=== PATIENT | male | born 1965 | race Caucasian/White ===

== ENCOUNTER 2022-05-07 14:21 | Outpatient (REF) | payer BC, SELFPAY ==
[2022-05-07 15:27] LABS: Basophils Absolute Auto 0.02 K/uL (0.00-0.30); Basophils Percent Auto 0.4 % (0.0-3.0); Eosinophils Absolute Auto 0.18 K/uL (0.00-0.50); Eosinophils Percent Auto 3.2 % (0.0-7.0); Hematocrit 52.9 % (37.0-53.0); Hemoglobin* 17.4 gm/dL (13.5-17.5); Lymphocytes Absolute Auto 2.48 K/uL (0.90-2.90); Lymphocytes Percent Auto 43.9 % (20-44); Mean Corpuscular HGB Conc 33 gm/dL (32-36); Mean Corpuscular Hemoglobin 30 pg (26-34); Mean Corpuscular Volume 92 fL (80-100); Monocytes Percent Auto 9.7 % (0.0-11.0); Neutrophils Absolute Auto 2.42 K/uL (1.7-7.0); Neutrophils Percent Auto 42.8 % (42.0-72.0); Platelet Count* 202 K/uL (140-440); RDW Coefficient of Variation % 12.6 % (11.5-15.5); Red Blood Count 5.78 m/uL (4.30-5.90); White Blood Count* 5.65 K/uL (4.50-11.00)
[2022-05-07 15:28] LABS: Albumin* 4.7 g/dL (3.3-5.0)
[2022-05-07 15:30] LABS: Bilirubin Direct* 0.2 mg/dL (0.0-0.5); Bilirubin Total* 1.1 mg/dL (0.1-1.5); Total Protein* 7.7 g/dL (6.0-8.3)
[2022-05-07 15:31] LABS: Alanine Aminotransferase* 23 U/L (4-50); Alkaline Phosphatase* 71 U/L (40-150); Aspartate Amino Transferase* 16 U/L (12-35)
[2022-05-07 15:43] LABS: Slide Review Reflex No
[2022-05-09 21:55] LABS: Hepatitis B Core Antibodies Negative (Negative)
== END 2022-05-07 14:22 | disposition home or self-care (01) ==
LOC: NPINS 14:21
PROVIDERS: PCP Internal Medicine; Visit Provider Internal Medicine
DX: K50.10 Crohn's disease of large intestine without complications (principal)
CPT/HCPCS: 80076; 85025; 86704

== ENCOUNTER 2022-09-02 08:15 | Outpatient (CLI) | payer BC, SELFPAY | END 2022-09-02 08:16 | disposition home or self-care (01) | LOC: NFLDREF 17:07 | PROVIDERS: PCP Internal Medicine; Referring Provider Internal Medicine; Visit Provider Internal Medicine | DX: Z00.00 Encounter for general adult medical examination without abnormal findings (principal); E66.9 Obesity, unspecified; Z12.5 Encounter for screening for malignant neoplasm of prostate; Z86.39 Personal history of other endocrine, nutritional and metabolic disease | CPT/HCPCS: 82306; 84153 ==

== ENCOUNTER 2022-11-27 13:43 | Outpatient (REF) | payer BC, SELFPAY ==
[2022-11-27 14:18] LABS: Basophils Absolute Auto 0.03 K/uL (0.00-0.30); Basophils Percent Auto 0.6 % (0.0-3.0); Eosinophils Absolute Auto 0.26 K/uL (0.00-0.50); Hematocrit 50.7 % (37.0-53.0); Hemoglobin* 16.9 gm/dL (13.5-17.5); Immature Granulocytes Abs Auto 0.01 K/uL (0.00-0.30); Immature Granulocytes Pct Auto 0.2 %; Lymphocytes Absolute Auto 2.05 K/uL (0.90-2.90); Mean Corpuscular HGB Conc 33 gm/dL (32-36); Mean Corpuscular Hemoglobin 31 pg (26-34); Mean Corpuscular Volume 92 fL (80-100); Monocytes Percent Auto 10.1 % (0.0-11.0); Neutrophils Absolute Auto 2.37 K/uL (1.7-7.0); Neutrophils Percent Auto 45.1 % (42.0-72.0); Platelet Count* 188 K/uL (140-440); RDW Coefficient of Variation % 13.1 % (11.5-15.5); Red Blood Count 5.51 m/uL (4.30-5.90); White Blood Count* 5.25 K/uL (4.50-11.00)
[2022-11-27 14:23] LABS: Albumin* 4.2 g/dL (3.3-5.0)
[2022-11-27 14:24] LABS: Slide Review Reflex No
[2022-11-27 14:25] LABS: Iron* 202 ug/dL (49-181)
[2022-11-27 14:26] LABS: Alkaline Phosphatase* 62 U/L (40-150); Aspartate Amino Transferase* 17 U/L (12-35); Bilirubin Direct* 0.1 mg/dL (0.0-0.5); Total Protein* 7.2 g/dL (6.0-8.3)
[2022-11-27 14:27] LABS: Alanine Aminotransferase* 26 U/L (4-50)
[2022-11-27 14:35] LABS: Percent Iron Saturation 66 % (20-50); Total Iron Binding Capacity 305 ug/dL (261-462)
[2022-11-27 15:00] LABS: Ferritin* 62.7 ng/mL (17.9-464.0)
== END 2022-11-27 13:44 | disposition home or self-care (01) ==
LOC: NPINS 13:43
PROVIDERS: Internal Medicine Gastroenterology; PCP Internal Medicine; Visit Provider Internal Medicine
DX: K50.10 Crohn's disease of large intestine without complications (principal); Z11.1 Encounter for screening for respiratory tuberculosis
CPT/HCPCS: 80076; 82728; 83540; 83550; 84443; 85025; 86480

== ENCOUNTER 2023-06-22 18:20 | Emergency (ER) | payer BC, SELFPAY ==
[2023-06-22 18:33] VITALS: BP 140/92; PULSE 97; RESP 16; TEMP 37.1; O2SAT 95; BMI 32.8
--- OUTSIDE RECORDS SUMMARY | 2023-06-22 19:26 | XMS_ITS | Encounter Summary ---
Author Name Unknown Organization [place] Address [address] [place] [address]. [place] [address] Care Team Providers Care Supervisor Personnel Clerks Name Role Phone Juan Luis Olivas MD Primary Care Provider [phone] Neto Baez Primary Care Provider + [phone] Cuco Rapp MD Unavailable [phone] Timo Muniz MD Unavailable [phone] Reason for Visit * Reason Onset Date Comments Appointment 12/14/2018 Sooner appointme nt Encounter Details Date Type Department Care Team (Late st Contact Info) Description 12/14/2018 [facility] [address] [place] [address] System, Provider Not In Appointment (Sooner appointment) Social History Tobacco Use Types Packs/Day Years Used Date Smoking Tobacco: Never Assessed Sex and Gender Information Value Date Recorded Sex Assigned at Not on file Gender Identity Not on file Sexual Orientation Not on file documented as of this encounter Miscellaneous Notes * Telephone Encounter - Frannie Brown - 12/14/2018 4:54 PM CDT [facility] Call Center Phone Message May a detailed message be left on voicemail: yes Reason for Call: Other: Pt is needing to schedule an appointment at [facility] to be seen for a kidney stone. Pt was recently seen in the ED and was told to follow up in Urology in 3 days. The soonest appointment isn't until 12/30. Please give him a call back to discuss the possiblity of a sooner appointment. Action Taken: Message routed to: [facility] Urology documented in this encounter Plan of Treatment Not on file documented as of this encounter Visit Diagnoses Not on filedocumented in this encounter Care Teams Supervisor Personnel Clerks Relationship Specialty Start Date End Date Juan Luis Olivas MD PCP - General Family Practice 12/14/18 01/10/20 Neto Baez [address] [address] PCP - General Family Practice 01/11/20 Cuco Rapp MD [address] [address] Assigned Surgical Provider 03/24/20 Timo Muniz MD [address] [place], [place] [address] Assigned Surgical Provider 07/02/20 documented as of this encounter
--- OUTSIDE RECORDS SUMMARY | 2023-06-22 19:26 | XMS_ITS | Referral Summary ---
Author Name Unknown Organization [place] Address [address] [place] [address] Care Team Providers Care Cage Clerk Name Role Phone SashaEdy membrenoolakvng Encarnacion Primary Care Provider Allergies Active Allergy Reactions Criticality Noted Date Comments Sulfa Antibiotics Anaphylaxis,Swelling High 12/15/19 19 Medications Medication Sig Dispensed Refills Start Date End Date Status omeprazole 20 MG tablet Take 20 mg by mouth daily 0 Active fluticasone (FLONASE) 50 MCG/ACT nasal spray [place] 1 spray into both nostrils daily 0 Active multivitamin w/minerals (MULTI-VITAMIN) tablet Take 1 tablet by mouth daily 0 Active vitamin C (ASCORBIC ACID) 1000 MG TABS Take 1,000 mg by mouth daily 0 Active Cholecalciferol (VITAMIN D-3) 1000 units CAPS Take 1 tablet by mouth daily 0 Active INFLIXIMAB-ABDA IV Every 8 weeks, last infusion November 30 0 Active Active Problems No known active problems Immunizations Name Administration Dates Next Due COVID-19 MONOVALENT 12+ (Pfizer) 01/26/2021,04/0 01/2021,08/18/2020 Social History Tobacco Use Types Packs/Day Years Used Date Smoking Tobacco: Never Smokeless Tobacco: Never Tobacco Cessation:Counseling Given: No Alcohol Use Standard Drinks/Week Comments Yes 0 (1 standard drink = 0.6 oz pur e alcohol) 4 drinks mopnthly or less PHQ-2 Answer Date Recorded PHQ-2 Score 0 04/25/2020 Adolescent Education Answer Date Record ed Getting School Help Needed Not on file 03/01 Sex and Gender Information Value Date Recorded Sex Assigned at Not on file Gender Identity Not on file Sexual Orientation Not on file Last Filed Vital Signs Vital Sign Reading Time Taken Comments Blood Pressure 164/112 01/11/2020 4:05 AM CDT Pulse 64 01/11/2020 2:25 AM CDT Temperature 36.4 ??C (97.6 ??F) 01/11/2020 2:25 AM CD T Respiratory Rate 18 01/11/2020 2:25 AM CDT Oxygen Saturation 98% 01/11/2020 3:15 AM CDT Inhaled Oxygen Concentration - - Weight 114.3 kg (252 lb) 01/08/2019 10:31 AM CDT Height 182.9 cm (6') 01/08/2019 10:31 AM CDT Body Mass Index 34.18 01/08/2019 10:31 AM CDT Plan of Treatment Not on file Medical Devices Implanted Type Area Printing Equipment Mechanic Device Identifier Shelf Expiration Date Model / Serial / Lot Stent Ureteral Polaris Ultra [id number] Implanted:Qty: 1 on 12/18/2018 by Cuco Rapp MD at [facility] Stent Right: Ureter [employer] 07/19/2021 [id number] / / [id number] Care Teams Cage Clerk Relationship Specialty Start Date End Date Neto Baez [address] [address] PCP - General Family Practice 01/11/20
--- OUTSIDE RECORDS SUMMARY | 2023-06-22 19:26 | XMS_ITS | Encounter Summary ---
Author Name Unknown Organization [place] Address [address] [place] [address] Care Team Providers Care Leader Assembler Name Role Phone Neto Baez Primary Care Provider + [phone] Timo Muniz MD Unavailable [phone] Encounter Details Date Type Department Care Team (Late st Contact Info) Description 09/24/2020 Documentation Only INTERFACED REPORT Unknown, Provider Social History Tobacco Use Types Packs/Day Years Used Date Smoking Tobacco: Never Smokeless Tobacco: Never Alcohol Use Standard Drinks/Week Comments Yes 0 (1 standard drink = 0.6 oz pur e alcohol) 4 drinks mopnthly or less PHQ-2 Answer Date Recorded PHQ-2 Score 0 04/25/2020 Sex and Gender Information Value Date Recorded Sex Assigned at Not on file Gender Identity Not on file Sexual Orientation Not on file documented as of this encounter Plan of Treatment Not on file documented as of this encounter Visit Diagnoses Not on filedocumented in this encounter Additional Health Concerns Assessment Noted Time PHQ-9 Depression Total Score: 14 019 10:03 AM CDT documented as of this encounter Care Teams Leader Assembler Relationship Specialty Start Date End Date Neto Baez [address] [address] PCP - General Family Practice 01/11/20 Timo Muniz MD [address] [place] [address] Assigned Surgical Provider 07/02/20 documented as of this encounter
--- OUTSIDE RECORDS SUMMARY | 2023-06-22 19:26 | XMS_ITS | Encounter Summary ---
Author Name Unknown Organization [place] Address [address] [place] [address]. [place] [address] Care Team Providers Care Closet Builder Name Role Phone Neto Baez Primary Care Provider + [phone] Timo Muniz MD Unavailable [phone] Encounter Details Date Type Department Care Team (Late st Contact Info) Description 01/25/2021 [facility] Adv[facility] [address] [place] [address] Cuco Rapp MD [address] [address] Social History Tobacco Use Types Packs/Day Years [...] Noted Time PHQ-9 Depression Total Score: 14 12/29/ 019 10:03 AM CDT documented as of this encounter Care Teams Closet Builder Relationship Specialty Start Date End Date Neto Baez [address] [address] PCP - General Family Practice 01/11/20 Timo Muniz MD [address] [place] [address] Assigned Surgical Provider 07/02/20 documented as of this encounter
--- OUTSIDE RECORDS SUMMARY | 2023-06-22 19:26 | XMS_ITS | Clinical Summary ---
Author Name Unknown Organization [facility] Address [place], [place] [address] Care Team Providers Care Record Changer Name Role Phone Emery Law MD Unavailable [phone] Pcp, No Primary Care Provider Unavailabl e Allergies Active Allergy Reactions Criticality Noted Date Comments Sulfa (Sulfonamide Antibiotics) Hives 01/31 Medications Medication Sig Dispensed Refills Start Date End Date Status MULTI-VITAMIN TAB take 1 tablet by oral route once daily with food 0 08/26/2007 Active cholecalciferol (VITAMIN D-3) 2,000 unit capsule Take 1 capsule by mouth once daily. 0 09/02/2013 Active inFLIXimab (REMICADE) 100 mg injection Inject intravenous. 0 11/05/2016 Active ascorbic acid, vitamin C, (VITAMIN C) 1,000 mg tablet Take 1 tablet by mouth once daily. 0 06/12/2018 Active albuterol HFA (PROAIR HFA) 90 mcg/actuation inhalerIndications:Mil d intermittent asthma, uncomplicated Inhale 2 Puffs by mouth 4 times daily if needed. 1 Inhaler 5 06/12/2018 Active fluticasone (FLOVENT) 110 mcg/Actuation inhalerIndications:Com munity acquired pneumonia of left lower lobe of lung Inhale 2 Puffs by mouth 2 times daily. 1 Inhaler 1 06/12/2018 Active omeprazole (PRILOSEC) 20 mg Delayed-Release capsuleIndications:Gas troesophageal reflux disease without esophagitis TAKE 1 CAPSULE BY MOUTH EVERY DAY BEFORE A MEAL 90 capsule 0 02/24/2019 Active fluticasone (50 mcg per actuation) nasal solution (FLONASE)Indications:E nvironmental allergies SHAKE LIQUID AND USE 1 SPRAY IN EACH NOSTRIL EVERY DAY 3 Bottle 3 02/25/2019 Active Active Problems Problem Noted Date Diagnosed Date History of iritis 11/06/2021 Photopsia 04/10/2020 Visual disturbance 04/10/2020 Presbyopia 02/24/2020 Regular astigmatism, bilateral 02/24/2020 Myopia, bilateral 02/24/2020 Crohn's disease 12/14/2015 Chronic iritis, bilateral 05/19/2014 Vitamin D deficiency 09/02/2013 Mild intermittent asthma 10/09/2006 Allergic rhinitis, cause unspecified 10/09/2006 Immunizations Name Administration Dates Next Due AMB Influenza, IIV3 (Age >=3 years)(Flu Clinic Only) 03/17/2012,03/20/2011,04/07/2010,2007 Hepatitis A (Adult) 09/25/2015 Hepatitis B (Adult) 08/25/2015,04/26/1997 Hepatitis B, Unspecified 09/25/2015 Influenza A (H1N1), Inactiva alejandra (Age >=3 Years) 06/13/2009 Influenza, IIV3 (Age >=3 years) 02/16/20 13,03/11/2009,04/04/2007,2005,03/16/2003,03/23/2002,04/11/2001,1 06/04/1999,04/04/1999,04/01/1998, 997 Influenza, IIV4 03/16/2018,03/07/2017,02/21/2014 MMR 06/17/1995 Pneumococcal Poly,23-Valent (Pneumovax) 04/04/1999 Pneumococcal conj 13-Valent (Prevnar 13) 09/25/2015 Td (Age >=7 Years) 04/26/1997 Tdap 12/14/2009 Family History Medical History Relation Name Comments Cancer-prostate Father early 50-s - survivor Hyperlipidemia Father Hypertension Father Other Father hiatal hernia/s leep apnea/Fuchs/Fuchs Arthritis Mother Diabetes Mother Hyperlipidemia Mother Hypertension Mother Other Mother migraine Heart Disease Paternal Grandfather Other Paternal Grandmother catarac ts,fuchs Relation Name Status Comments Brother Alive Father Alive Mother Alive Paternal Grandfather Paternal Grandmother Sister 1 Alive Sister 2 Alive Social History Tobacco Use Types Packs/Day Years Used Date Smoking Tobacco: Never Smokeless Tobacco: Never Alcohol Use Standard Drinks/Week Comments Yes 0 (1 standard drink = 0.6 oz pur e alcohol) socially-rare PHQ-2 Answer Date Recorded PHQ-2 Score 0 08/02/2018 Sex and Gender Information Value Date Recorded Sex Assigned at Not on file Gender Identity Not on file Sexual Orientation Not on file Obstetrics History Last Filed Vital Signs Vital Sign Reading Time Taken Comments Blood Pressure 114/80 07/13/2018 2:02 PM LONG LINES OPERATOR Pulse 94 07/13/2018 2:02 PM LONG LINES OPERATOR Temperature 37 ??C (98.6 ??F) 07/13/2018 2:02 PM LONG LINES OPERATOR Respiratory Rate 18 07/13/2018 2:02 PM LONG LINES OPERATOR Oxygen Saturation 97% 07/13/2018 2:02 PM LONG LINES OPERATOR Inhaled Oxygen Concentration - - Weight 114.3 kg (252 lb) 07/13/2018 2:02 PM LONG LINES OPERATOR Height 181.3 cm (5' 11.38) 05/29/2018 9:[address] Body Mass Index 34.78 05/29/2018 9:14 AM LONG LINES OPERATOR Plan of Treatment Health Maintenance Due Date Last Done Comments HIV for age 15-65 02/01/1980 Zoster (shingles) series for age 50+ (1 of 2) 2015 Depression screening for age 12+ 02/04/2019 02/04/2018, 01/06/2017, 12/14/2015, Additional history exists BMI (ht and wt on same day) for age 18+ 05/29/2019 05/29/2018, 02/04/2018, 10/21/2016, Additional history exists Tetanus booster 12/15/2019 12/14/2009, 04/26/1997 COVID-19 vaccine series ( season) 2023 02/19/2022, 09/08/2020, 08/18/2020 Influenza for age 50-64 2023 03/16/20 18, 03/07/2017, 02/21/2014, Additional history exists Lipids for age 45-75 02/04/2023 02/04/2018, 01/06/2017, 12/14/2015, Additional history exists Colonoscopy through age 75 07/04/203107/04, 06/09/2019, 06/26/2017, Additional history exists Tdap Completed 12/14/2009 Hepatitis C screening for age 18-79 Completed 09/02/2013 Pneumococcal series for age 6-64 Aged Out 09/25/2015, 04/04/1999 No longer eligibl e based on patient's age to complete this topic Advance Directives Documents on File Type Date Recorded Patient Tape Making Machine Operator Expl anation Healthcare Directive 09/18/2009 [facility] are Directive, 09-18-09 Care Teams Record Changer Relationship Specialty Start Date End Date Pcp, No . PCP - General 02/22/20 Emery Law MD [address] [facility] [address] [place] [address] Gastroenterology 09/02/13
--- OUTSIDE RECORDS SUMMARY | 2023-06-22 19:26 | XMS_ITS | Encounter Summary ---
Author Name Unknown Organization [place] Address [address] [place] [address] Care Team Providers Care Phlebotomist Medical Lab Assistant Name Role Phone Neto Baez Primary Care Provider + [phone] Timo Muniz MD Unavailable [phone] Encounter Details Date Type Department Care Team (Late st Contact Info) Description 09/09/2020 Documentation Only INTERFACED REPORT Unknown, Provider Social [...] documented as of this encounter Care Teams Phlebotomist Medical Lab Assistant Relationship Specialty Start Date End Date Neto Baez [address] [address] PCP - General Family Practice 01/11/20 Timo Muniz MD [address] [place] [address] Assigned Surgical Provider 07/02/20 documented as of this encounter
--- OUTSIDE RECORDS SUMMARY | 2023-06-22 19:26 | XMS_ITS | Encounter Summary ---
Author Name Unknown Organization [place] Address [address] [place] [address] Care Team Providers Care Coding Validator Name Role Phone Neto Baez Primary Care Provider + [phone] Timo Muniz MD Unavailable [phone] Encounter Details Date Type Department Care Team (Late st Contact Info) Description 08/19/2020 Documentation Only INTERFACED REPORT Unknown, Provider Social [...] documented as of this encounter Care Teams Coding Validator Relationship Specialty Start Date End Date Neto Baez [address] [address] PCP - General Family Practice 01/11/20 Timo Muniz MD [address] [place] [address] Assigned Surgical Provider 07/02/20 documented as of this encounter
--- OUTSIDE RECORDS SUMMARY | 2023-06-22 19:26 | XMS_ITS | Clinical Summary ---
Author Name Unknown Organization [place] Address [address] [place] [address] Care Team Providers Care Hydraulic Pile Hammer Operator Name Role Phone SashaEdy membrenoolakvng Encranacion Primary Care Provider [phone] Allergies Active Allergy Reactions Criticality Noted Date Comments Sulfa Antibiotics Anaphylaxis,Swelling High 12/15/19 19 Medications Medication Sig Dispensed Refills Start Date End Date Status omeprazole 20 MG tablet Take 20 mg by mouth daily 0 Active fluticasone (FLONASE) 50 MCG/ACT nasal spray [place] 1 spray into both nostrils daily 0 [...] 01/08/2019 10:31 AM CDT Plan of Treatment Health Maintenance Due Date Last Done Comments ADVANCE CARE PLANNING 1965 ANNUAL REVIEW OF HM ORDERS 1965 CT COLONOGRAPHY 1965 FIT 1965 FLEX SIG 1965 YEARLY PREVENTIVE VISIT 1965 sDNA (Cologuard) 1965 HIV SCREENING 02/01/1980 HEPATITIS C SCREENING 1983 LIPID 02/01/2000 HEPATITIS B IMMUNIZATION (3 of 3 - 19+ 3-dose series) 11/20/2015 09/25/2015, 08/25/2015, 04/26/1997, Additional history exists Pneumococcal Vaccine: Pediatrics (0 to 5 Years) and At-Risk Patients (6 to 64 Years) (3 of 3 - PPSV23 or PCV20) 11/20/2015 09/25/2015, 04/04/1999 COVID-19 Vaccine ( season) 2023 02/19/2022, 08/21/2021, 01/26/2021, Additional history exists INFLUENZA VACCINE (#1) 2023 2, 03/02/2021, 03/15/2019, Additional history exists PHQ-2 (once per calendar year) 2023 04/25/2020, 01/08/2019, 12/29/2018, Additional history exists COLONOSCOPY 06/09/2029 06/09/2019 COLORECTAL CANCER SCREENING 06/09/2029 DTAP/TDAP/TD IMMUNIZATION (3 - Td or Tdap) 01/12/2030 01/13/2020, 12/14/2009 ZOSTER IMMUNIZATION Completed 05/15/2020, 0 HPV IMMUNIZATION Aged Out No longer e ligible based on patient's age to complete this topic IPV IMMUNIZATION Aged Out No longer e ligible based on patient's age to complete this topic MENINGITIS IMMUNIZATION Aged Out No l onger eligible based on patient's age to complete this topic RSV MONOCLONAL ANTIBODY Aged Out No l onger eligible based on patient's age to complete this topic Medical Devices Implanted Type Area Reeler Operator Device Identifier Shelf Expiration Date Model / Serial / Lot Stent Ureteral Polaris Ultra [id number] Implanted:Qty: 1 on 12/18/2018 by Cuco Rapp MD at [facility] Stent Right: Ureter [employer] 07/19/2021 [id number] / / [id number] Care Teams Hydraulic Pile Hammer Operator Relationship Specialty Start Date End Date Neto Baez [address] [address] PCP - General Family Practice 01/11/20
--- NOTE | 2023-06-22 20:13 | ED.LOWEXIN ---
HPI - Extremity Injury (Lower) General Date Seen: 06/22/23 Chief Complaint: Extremity Pain/Injury, Lower Stated Complaint: broken right side fibula Time Seen by Provider: 06/22/23 18:53 Source: patient Mode of arrival: ambulatory Limitations: no limitations History of Present Illness HPI Narrative: Patient is a 58-year-old male presenting for right fibular fracture. He states he was in [place] on a vacation yesterday [place] heard a crack in his right leg. He was brought to local emergency department in x-rays were done showing a fibular fracture. They were talking about doing surgery the next day but patient states he want to go back to [place] due to his flight being today. He was told he was okay for discharge but need to come straight to the emergency department when he gets off the plane. He was prescribed oxycodone and has a posterior short leg splint. Says his pain is only about 3/10 is only needed 1 chief oxycodone. No other concerns noted Related Data Home Medications Medication Instructions Recorded Confirmed albuterol sulfate 90 mcg/actuation 2 inhalation PRN 09/05/22 09/05/22 aerosol inhaler ascorbic acid (vitamin C) 250 mg 250 mg PO DAILY 09/05/22 06/22/23 tablet cholecalciferol (vitamin D3) 50 2,000 unit PO DAILY 09/05/22 06/22/23 mcg (2,000 unit) capsule infliximab 100 mg intravenous mg IV 09/05/22 09/05/22 solution multivitamin 1 tab PO QAM 09/05/22 06/22/23 ducosate sodium 06/22/23 ondansetron 4 mg disintegrating 4 mg PO Q8H PRN 06/22/23 06/22/23 tablet oxycodone-acetaminophen 5 mg-325 tab PO 06/22/23 mg tablet Previous Rx's Medication Instructions Recorded omeprazole 20 mg capsule,delayed 20 mg PO DAILY #90 caps 10/22/22 release scopolamine base 1 mg over 3 days 1 patch transdermal Q3D PRN motion 01/23/23 transdermal patch sickness #5 ea fluticasone propionate 50 2 spray intranasal QDAY #48 grams 04/28/23 mcg/actuation nasal spray,suspension Allergies Allergy/AdvReac Type Severity Reaction Status Date / Time cigarette smoke Allergy Unknown Unknown Verified 09/05/22 07:48 dog dander Allergy Unknown Unknown Verified 09/05/22 07:48 grass pollen Allergy Unknown Unknown Verified 09/05/22 07:48 house dust Allergy Unknown Unknown Verified 09/05/22 07:48 pollen extracts Allergy Unknown Unknown Verified 09/05/22 07:48 Cat hair extract Allergy Unknown Unknown Uncoded 09/05/22 07:48 Chicken feathers Allergy Unknown Unknown Uncoded 09/05/22 07:48 Sulfa Antibiotics Allergy Unknown Unknown Uncoded 09/05/22 07:48 Review of Systems Narrative: Pertinent systems reviewed and were negative PFSH PFS Medical History History of nephrolithiasis ?Z87.442 - Personal history of urinary calculi (ICD-10) History of vitamin D deficiency ?Z86.39 - Personal history of other endocrine, nutritional and metabolic disease (ICD-10) History of hemorrhoids ?Z87.19 - Personal history of other diseases of the digestive system (ICD-10) Surgical History History of umbilical hernia repair (2004) ?Z98.890 - Other specified postprocedural states (ICD-10) ?Z87.19 - Personal history of other diseases of the digestive system (ICD-10) History of tympanoplasty of left ear ?Z98.890 - Other specified postprocedural states (ICD-10) History of lithotripsy (2018) ?Z98.890 - Other specified postprocedural states (ICD-10) History of colonoscopy (06/26/17) ?Z98.890 - Other specified postprocedural states (ICD-10) History of cholecystectomy ?Z90.49 - Acquired absence of other specified parts of digestive tract (ICD-10) Family History Father Prostate cancer, Onset Age: 52 Social History Smoking Status: Never smoker How often do you have a drink containing alcohol: monthly or less AUDIT-C Alcohol total score: 1 Non-prescribed substance use: denies use Little interest or pleasure in doing things: not at all Feeling down, depressed, or hopeless: several days Exam Narrative: Exam Narrative: Const: Well-nourished, Well-developed, in mild distress Eyes: PERRL, no conjunctival injection, and symmetrical lids HENT: Atraumatic external nose and ears. Moist mucous membranes. MSK: Right lower extremity with posterior short-leg splint, Extremities: Cap refill less than to bilateral lower extremities, normal pulses bilateral lower extremities Skin: Warm, Dry. No rashes or lesions. Neuro: Normal Muscle tone, No focal neurological deficits. Psych: Awake, Alert, & Oriented x3. Appropriate mood and affect. Const: Vital Signs, click to edit/add: Vital Signs - 24 hr 06/22/23 18:33 06/22/23 20:23 Temperature 98.8 F Pulse Rate [Left P ulse Oximeter] 97 87 Respiratory Rate 16 20 Blood Pressure [Ri ght Upper Arm] 140/92 H Pulse Oximetry 95 97 Oxygen Delivery Me thod Room Air Room Air Course Vital Signs Vital signs: Initial Vital Signs Temperature 98.8 F 06/22/23 18:33 Temperature Source Temporal Artery Scan 06/22/23 18:33 Pulse Rate 97 06/22/23 18:33 Respiratory Rate 16 06/22/23 18:33 Blood Pressure 140/92 H 06/22/23 18:33 Blood Pressure Mean 108 H 06/22/23 18:33 Blood Pressure Position Semi-Fowlers 06/22/23 18:33 Pulse Oximetry 95 06/22/23 18:33 Oxygen Delivery Method Room Air 06/22/23 18:33 Vital Signs Temperature 98.8 F 06/22/23 18:33 Pulse Rate 97 06/22/23 18:33 Respiratory Rate 16 06/22/23 18:33 Blood Pressure 140/92 H 06/22/23 18:33 Pulse Oximetry 95 06/22/23 18:33 Oxygen Delivery Method Room Air 06/22/23 18:33 Temperature 98.8 F 06/22/23 18:33 Pulse Rate 87 06/22/23 20:23 Respiratory Rate 20 06/22/23 20:23 Blood Pressure 140/92 H 06/22/23 18:33 Pulse Oximetry 97 06/22/23 20:23 Oxygen Delivery Method Room Air 06/22/23 20:23 MDM - Extremity Injury (Lower) MDM Narrative Medical decision making narrative: Patient is a 58-year-old male presenting for right leg fracture. He was told to come straight emergency department we got off a slight today. He is otherwise doing well and pain is tolerable at this time. We were able to get his previous x-rays from [place] so the x-rays I ordered were canceled. Will consult Orthopedics. They state the patient needs surgery with not need emergent surgery. He can follow-up outpatient in their clinic. Registration here will help him schedule an appointment. He states his pain is under control with the oxycodone previously prescribed. He is neurovascular intact. He can be discharged home he is agreeable to this plan. Discharge Plan Discharge Clinical Impression: Closed fibular fracture Qualifiers: Encounter type: initial encounter Fibula location: shaft Fracture morphology: oblique Fracture alignment: nondisplaced Laterality: right Qualified Code(s): S82.434A - Nondisplaced oblique fracture of shaft of right fibula, initial encounter for closed fracture Patient Disposition: Home, Self-Care Condition: Stable Instructions: Leg Fracture (ED) Additional Instructions: Continue to use your crutches. Stay nonweightbearing to the right leg. Follow-up with orthopedics this week. Prescriptions: No Action multivitamin Tablet 1 tab PO QAM ascorbic acid (vitamin C) 250 mg tablet 250 mg PO DAILY albuterol sulfate 90 mcg/actuation HFA aerosol inhaler 2 inhalation PRN cholecalciferol (vitamin D3) 50 mcg (2,000 unit) capsule 2,000 unit PO DAILY infliximab 100 mg recon soln IV oxycodone-acetaminophen 5-325 mg tablet PO ondansetron 4 mg tablet,disintegrating 4 mg PO Q8H PRN ducosate sodium omeprazole 20 mg capsule,delayed release(DR/EC) 20 mg PO DAILY Qty: 90 3RF scopolamine base 1 mg over 3 days patch 3 day 1 patch transdermal Q3D PRN (Reason: motion sickness) Qty: 5 0RF fluticasone propionate 50 mcg/actuation spray,suspension 2 spray intranasal QDAY Qty: 48 3RF Rx Instructions: administer into each nostril Follow Up/Referrals: Deborah Sin MD [Primary Care Provider] - Stand Alone Forms: [employer] Info Instructions
[2023-06-22 20:23] VITALS: PULSE 87; RESP 20; O2SAT 97
[2023-06-22 20:43] VITALS: BP 130/72; PULSE 85; RESP 20; O2SAT 96
== END 2023-06-22 20:42 | disposition home or self-care (01) ==
PROVIDERS: Emergency Provider Student in an Organized Health Care Education/Training Program; PCP Internal Medicine
DX: S82.434A Nondisplaced oblique fracture of shaft of right fibula, initial encounter for closed fracture (principal)
CPT/HCPCS: 99282; 99283

== ENCOUNTER 2023-06-24 06:39 | Day surgery (SDC) | payer BC, SELFPAY ==
[2023-06-24] VITALS (14 sets, daily range): BP systolic 126–159; BP diastolic 86–117; PULSE 67–89; RESP 14–16; TEMP 36.4–36.7; O2SAT 90–99; BMI 32.8
--- OUTSIDE RECORDS SUMMARY | 2023-06-24 06:42 | XMS_ITS | Encounter Summary ---
Author Name Unknown Organization [facility] Address [address] [place] [address] Care Team Providers Care Regional Account Executive Name Role Phone Neto Baez Primary Care Provider + [phone] Timo Muniz MD Unavailable [phone] Encounter Details Date Type Department Care [...] documented as of this encounter Care Teams Regional Account Executive Relationship Specialty Start Date End Date Neto Baez [address] [address] PCP - General Family Practice 01/11/20 Timo Muniz MD [address] [place] [address] Assigned Surgical Provider 07/02/20 documented as of this encounter
--- OUTSIDE RECORDS SUMMARY | 2023-06-24 06:42 | XMS_ITS | Clinical Summary ---
Author Name Unknown Organization [facility] Address [address] [place] [address] Care Team Providers Care Finishing Machine Operator Name Role Phone SashaEdy membrenoolakvng Encarnacion Primary Care Provider Allergies Active Allergy Reactions Criticality Noted Date Comments Sulfa Antibiotics Anaphylaxis,Swelling High 12/15/19 19 Medications Medication Sig Dispensed Refills Start Date End Date Status omeprazole 20 MG tablet Take 20 mg by mouth daily 0 Active fluticasone (FLONASE) 50 MCG/ACT nasal spray [place] 1 spray into both nostrils daily 0 [...] this topic Medical Devices Implanted Type Area Venereal Disease Investigator Device Identifier Shelf Expiration Date Model / Serial / Lot Stent Ureteral Polaris Ultra [id number] Implanted:Qty: 1 on 12/18/2018 by Cuco Rapp MD at [facility] Stent Right: Ureter [employer] [employer] 07/19/2021 [id number] / / [id number] Care Teams Finishing Machine Operator Relationship Specialty Start Date End Date Neto Baez [address] [address] PCP - General Family Practice 01/11/20
--- OUTSIDE RECORDS SUMMARY | 2023-06-24 06:42 | XMS_ITS | Encounter Summary ---
Author Name Unknown Organization [facility] Address [address] [place] [address]. [place] [address] Care Team Providers Care Biological Engineer Name Role Phone Neto Baez Primary Care Provider + [phone] Timo Muniz MD Unavailable [phone] Encounter Details Date Type Department Care Team (Late st Contact Info) Description 01/25/2021 [facility] Medical Advice [facility] [address] [place] [address] Cuco Rapp MD [id number] [id number] Social History Tobacco Use Types Packs/Day Years [...] documented as of this encounter Care Teams Biological Engineer Relationship Specialty Start Date End Date Neto Baez [address] [address] PCP - General Family Practice 01/11/20 Timo Muniz MD [address] [place] [address] Assigned Surgical Provider 07/02/20 documented as of this encounter
--- OUTSIDE RECORDS SUMMARY | 2023-06-24 06:42 | XMS_ITS | Referral Summary ---
Author Name Unknown Organization [facility] Address [address] [place] [address] Care Team Providers Care Gravity Prospecting Observer Name Role Phone SashaEdy membrenoolakvng Encarnacion Primary Care Provider Allergies Active Allergy Reactions Criticality Noted Date Comments Sulfa Antibiotics Anaphylaxis,Swelling High 12/15/19 19 Medications Medication Sig Dispensed Refills Start Date End Date Status omeprazole 20 MG tablet Take 20 mg by mouth daily 0 Active fluticasone (FLONASE) 50 MCG/ACT nasal spray [place] 1 spray into both nostrils daily 0 [...] on file Medical Devices Implanted Type Area Shuttleless Loom Weaver Device Identifier Shelf Expiration Date Model / Serial / Lot Stent Ureteral Polaris Ultra [id number] Implanted:Qty: 1 on 12/18/2018 by Cuco Rapp MD at [facility] Stent Right: Ureter [employer] 07/19/2021 [id number] / / [id number] Care Teams Gravity Prospecting Observer Relationship Specialty Start Date End Date Neto Baez [address] [address] PCP - General Family Practice 01/11/20
--- OUTSIDE RECORDS SUMMARY | 2023-06-24 06:43 | XMS_ITS | Encounter Summary ---
Author Name Unknown Organization [facility] Address [address] [place] [address] Care Team Providers Care Janitor Helper Name Role Phone Neto Baez Primary Care Provider + [phone] Timo Muniz MD Unavailable [phone] Encounter Details Date Type Department Care [...] documented as of this encounter Care Teams Janitor Helper Relationship Specialty Start Date End Date Neto Baez [address] [address] PCP - General Family Practice 01/11/20 Timo Muniz MD [address] [place] [address] Assigned Surgical Provider 07/02/20 documented as of this encounter
--- OUTSIDE RECORDS SUMMARY | 2023-06-24 06:43 | XMS_ITS | Encounter Summary ---
Author Name Unknown Organization [facility] Address [address] [place] [address]. [place] [address] Care Team Providers Care Sand Cutter Operator Name Role Phone Juan Luis Olivas MD Primary Care Provider [phone] Neto Baez Primary Care Provider + [phone] Cuco Rapp MD Unavailable [phone] Timo Muniz MD Unavailable [phone] Reason for Visit * Reason Onset Date Comments Appointment 12/14/2018 Sooner appointme nt Encounter Details Date Type Department Care Team (Late st Contact Info) Description 12/14/2018 [facility] [address] [place] [address] System, Provider Not In Appointment (Sooner appointment) Social History Tobacco Use Types Packs/Day Years Used Date Smoking Tobacco: Never Assessed Sex and Gender Information Value Date Recorded Sex Assigned at Not on file Gender Identity Not on file Sexual Orientation Not on file documented as of this encounter Miscellaneous Notes * Telephone Encounter - Frannie Brown - 12/14/2018 4:54 PM CDT [facility] Call Center Phone Message May a detailed message be left on voicemail: yes Reason for Call: Other: Pt is needing to schedule an appointment at [facility] to be seen for a kidney stone. [...] on filedocumented in this encounter Care Teams Sand Cutter Operator Relationship Specialty Start Date End Date Juan Luis Olivas MD PCP - General Family Practice 12/14/18 01/10/20 Neto Baez [address] [address] PCP - General Family Practice 01/11/20 Cuco Rapp MD [address] [address] Assigned Surgical Provider 03/24/20 Timo Muniz MD [address] [place], [place] [address] Assigned Surgical Provider 07/02/20 documented as of this encounter
--- OUTSIDE RECORDS SUMMARY | 2023-06-24 06:43 | XMS_ITS | Clinical Summary ---
Author Name Unknown Organization [facility] Address [place], [place] [address] Care Team Providers Care Product Development Actuary Name Role Phone Emery Law MD Unavailable [phone] Pcp, No Primary Care Provider Unavailabl e [...] Comments Blood Pressure 114/80 07/13/2018 2:02 PM DINKEY ENGINE FIRER/FIREMAN Pulse 94 07/13/2018 2:02 PM DINKEY ENGINE FIRER/FIREMAN Temperature 37 ??C (98.6 ??F) 07/13/2018 2:02 PM DINKEY ENGINE FIRER/FIREMAN Respiratory Rate 18 07/13/2018 2:02 PM DINKEY ENGINE FIRER/FIREMAN Oxygen Saturation 97% 07/13/2018 2:02 PM DINKEY ENGINE FIRER/FIREMAN Inhaled Oxygen Concentration - - Weight 114.3 kg (252 lb) 07/13/2018 2:02 PM DINKEY ENGINE FIRER/FIREMAN Height 181.3 cm (5' 11.38) 05/29/2018 9:[address] Body Mass Index 34.78 05/29/2018 9:14 AM DINKEY ENGINE FIRER/FIREMAN Plan of Treatment Health Maintenance Due Date [...] Documents on File Type Date Recorded Patient Self Propelled Dredge Operator Expl anation Healthcare Directive 09/18/2009 [facility] are Directive, 09-18-09 Care Teams Product Development Actuary Relationship Specialty Start Date End Date Pcp, No . PCP - General 02/22/20 Emery Law MD [address] [facility] [address] [place] [address] Gastroenterology 09/02/13
--- OUTSIDE RECORDS SUMMARY | 2023-06-24 06:43 | XMS_ITS | Encounter Summary ---
Author Name Unknown Organization [facility] Address [address] [place] [address] Care Team Providers Care Circuit Court Clerk Name Role Phone Neto Baez Primary Care Provider + [phone] Timo Muniz MD Unavailable [phone] Encounter Details Date Type Department Care [...] documented as of this encounter Care Teams Circuit Court Clerk Relationship Specialty Start Date End Date Neto Baez [address] [address] PCP - General Family Practice 01/11/20 Timo Muniz MD [address] [place] [address] Assigned Surgical Provider 07/02/20 documented as of this encounter
[2023-06-24] MEDS: LACTATED RINGERS 1000 ML 1,000 ML 100 ML IV (07:10)
[2023-06-24] MEDS: SODIUM CHLORIDE 0.9 % (FLUSH) 10 ML SYRINGE IVF (07:31)
[2023-06-24] MEDS: MIDAZOLAM HCL 1 MG/ML inj IVP (08:31)
[2023-06-24] MEDS: fentaNYL 100 MCG/2 ML inj IVP (08:31)
[2023-06-24] MEDS: SCOPOLAMINE 1 MG/3 DAY PATCH 1 PATCH TRANSDERMA (08:32)
--- NOTE | 2023-06-24 09:01 | SUR.PREOP ---
TIME?OUT:?0831 PT/RN/MDA?VERIFICATION?OF?SURGICAL?SITE Right Ankle,?PROCEDURE Nerve Block,?AND?CONSENT OBTAINED?PRIOR?TO?INVASIVE?PROCEDURE.
[2023-06-24] MEDS: CEFAZOLIN 2 GM INJ IVP (09:15)
--- NOTE | 2023-06-24 09:15 | CRLHL7_ITS ---
For Patients: As a result of the Cures Act, medical imaging exams and procedure reports are released immediately into your electronic medical record. You may view this report before your referring provider. If you have questions, please contact your health care provider. Indication: Right Ankle Fx, IM nailing Technique: 5 fluoroscopic images of the right ankle. 200.2 seconds fluoroscopic time. IMPRESSION: Fluoroscopic guidance for open reduction internal fixation of the distal tibia and fibula. Dictated by Gasper Ellis MD @ 06/24/2023 11:22:37 AM (Electronically Signed)
--- NOTE | 2023-06-24 09:44 | W.ANESCHARGE ---
Anesthesia Charges Start Date/Time Anesthesia Start Date: 06/24/23 Anesthesia Start Time: 09:08 Stop Date/Time Anesthesia Stop Date: 06/24/23 Anesthesia Stop Time: 11:21
--- NOTE | 2023-06-24 09:45 | W.PM.NB ---
Nerve Block Nerve Block Time Seen by Provider: 08:38 Date Seen: 06/24/23 Type of block requested by surgeon for post-operative analgesia: popliteal Side: right Time out performed: Yes Verification of patient name: Yes Verification of date of : Yes Site marking: site marked Name of person performing procedure: Job Continuous monitoring Was continuous monitoring of O2 sat, B/P, laboratory monitor, recorded every 15 minutes?: Yes Procedure Checklist: sterile prep, needles and gloves Ultrasound guided. Images saved: Yes Medications given in 5ml increments after negative aspiration: Ropivicaine %: 0.5 mL: 20 Needle gauge: 22 Patient tolerated procedure well: Yes Additional comments: Needle noted adjacent to nerve Block Charges Block Charge (with Pro Fee): Sciatic Nerve Use of Ultrasound Machine for Block: Yes- US Guidance/pain block
--- NOTE | 2023-06-24 10:49 | P.ORPRC_ITS ---
Procedure Note Date of procedure: 06/24/23 Procedure: PREOPERATIVE DIAGNOSIS: Right ankle Garsia C fracture POSTOPERATIVE DIAGNOSIS: Right ankle Garsia C fracture NAME OF OPERATION: Fibula fracture IM nailing plus syndesmotic screw x2 SURGEON: Mark De Luna MD POWERHOUSE MECHANIC HELPER: NAN Bee ANESTHESIA: Spinal plus popliteal block ESTIMATED BLOOD LOSS: 0 mL COMPLICATIONS: None SPECIMENS: None DRAINS: None PREOPERATIVE ANTIBIOTICS: Ancef 2 g INDICATIONS: The patient is a 58-year-old who sustained a right ankle fracture. ORIF was recommended. The risks, benefits and expected outcomes were discussed in detail. These included but were not limited to: Infection, bleeding, injury to blood vessel or nerve, venous thromboembolism. All questions were answered to their satisfaction. Use of an assistant to the president was necessary throughout the case for patient positioning a nd safety, soft tissue retraction and closure. PROCEDURE: A popliteal block was placed by anesthesia. Spinal anesthesia was administered. The lower extremity was prepped and draped in the usual sterile fashion. A guide pin was placed in the center of the distal fragment of the fibula, percutaneously. Its placement was confirmed with the image intensifier in multiple views. A stab incision was made around the guide pin. The opening reamer was used. The guide pin was removed. The reduction finger was placed in the distal fragment. The distal fragment was held reduced. The reduction finger was taken across the fracture site. The longer, flexible guide pin was placed across the fracture, engaging the canal of the proximal fragment. A percutaneous incision was placed over the anterior and posterior aspect of the fibula, at the fracture site. A reduction clamp was placed to obtain an anatomic reduction. The opening reamer was placed again. The 3.2 mm and 4.0 mm reamer were used in the proximal fragment. We placed the Arthrex 3.8 mm x 180 mm intramedullary nail. The talons were deployed. We placed 2 screws in the distal fragment. The syndesmotic reduction clamp was placed. We then placed 2 quadracortical 4.0 mm solid syndesmotic screws. The insurance and benefits clerk was removed, the end cap was placed. The reduction clamps were removed. This provides an excellent reduction of the fibula. Implants were imaged in the AP, mortise and lateral views and were felt to be well placed with an excellent reduction. The talus is nicely reduced under the tibial plafond. Medial mortise and syndesmotic relationships appear normal. The wounds were irrigated with normal saline. The assistant to the president closed the skin with a 4-0 Monocryl in a subcuticular fashion. Glue was used to seal the skin. The assistant to the president placed a dry dressing and short leg [place] splint. Sponge and needle counts were correct x 2. The patient tolerated the procedure well. There were no apparent complications. They were carefully transferred to the hospital bed and taken to the postanesthesia care unit in satisfactory condition. PLAN: The patient will be discharged to home. They will remain strict nonweightbearing on the lower extremity. They will continue to work on ice and elevation. They will follow up in the office in 2 weeks for a wound check and three views of the ankle out of the splint, prior to being seen, in preparation for a short-leg cast. At 6 weeks we will allow weight-bearing as tolerates in the cam walker and start physical therapy. We will plan to remove the syndesmotic screws at 12-16 weeks.
--- NOTE | 2023-06-24 11:21 | W.ANESCHARGE ---
Anesthesia Charges Start Date/Time Anesthesia Start Date: 06/24/23 Anesthesia Start Time: 09:08 Stop Date/Time Anesthesia Stop Date: 06/24/23 Anesthesia Stop Time: 11:21
[2023-06-24] MEDS: MEPERIDINE 25 MG/ML INJ 12.5 MG IVP (11:30)
== END 2023-06-24 13:10 | disposition home or self-care (01) ==
PROVIDERS: PCP Internal Medicine; Visit Provider Orthopaedic Surgery
PROC: (CPT 27792; principal; 2023-06-24 09:15)
DX: S82.831A Other fracture of upper and lower end of right fibula, initial encounter for closed fracture (principal); G89.18 Other acute postprocedural pain
CPT/HCPCS: 27792; 27829; 01480; 64445; 73600; 76000; 76942; A9270; C1713; J0690; J1100; J2175; J2250; J2405; J2704; J2795; J3010; J7120

== ENCOUNTER 2023-07-09 11:10 | Inpatient (IN) | payer BC, SELFPAY ==
[2023-07-09] VITALS (31 sets, daily range): BP systolic 119–149; BP diastolic 82–106; PULSE 77–94; RESP 20; TEMP 36.3–37; O2SAT 91–96; BMI 32.5
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
--- OUTSIDE RECORDS SUMMARY | 2023-07-09 12:12 | XMS_ITS | Encounter Summary ---
Author Name Unknown Organization [facility] Address [address] [place] [id number] Care Team Providers Care Sole Molding Machine Operator Name Role Phone Neto Baez Primary Care Provider + [phone] Timo Muniz MD Unavailable [phone] Encounter Details Date Type Department Care [...] documented as of this encounter Care Teams Sole Molding Machine Operator Relationship Specialty Start Date End Date Neto Baez [address] [address] PCP - General Family Practice 01/11/20 Timo Muniz MD [address] [place] [id number] Assigned Surgical Provider 07/02/20 documented as of this encounter
--- OUTSIDE RECORDS SUMMARY | 2023-07-09 12:12 | XMS_ITS | Clinical Summary ---
Author Name Unknown Organization [facility] Address [address] [place] [address] Care Team Providers Care Clinical Nurse Specialist Name Role Phone SashaEdy membrenoolakvng Encarnacion Primary Care Provider Allergies Active Allergy Reactions Criticality Noted Date Comments Sulfa Antibiotics Anaphylaxis,Swelling High 12/15/19 19 Medications Medication Sig Dispensed Refills Start Date End Date Status omeprazole 20 MG tablet Take 20 mg by mouth daily 0 Active fluticasone (FLONASE) 50 MCG/ACT nasal spray [place] 1 spray into both nostrils daily 0 [...] SCREENING 02/01/1980 HEPATITIS C SCREENING 1983 LIPID 2005 HEPATITIS B IMMUNIZATION (3 of 3 - 19+ 3-dose series) 11/20/2015 09/25/2015, 08/25/2015, 04/26/1997, Additional history exists Pneumococcal Vaccine: Pediatrics (0 to 5 Years) and At-Risk Patients (6 to 64 Years) (3 of 3 - PPSV23 or PCV20) 11/20/2015 09/25/2015, 04/04/1999 GLUCOSE 01/10/2023 01/11/2020, 12/14/2018 COVID-19 Vaccine (2022- season) 2023 02/19/2022, 08/21/2021, 01/26/2021, Additional history [...] this topic Medical Devices Implanted Type Area Night Time Babysitter Device Identifier Shelf Expiration Date Model / Serial / Lot Stent Ureteral Polaris Ultra [id number] Implanted:Qty: 1 on 12/18/2018 by Cuco Rapp MD at [facility] Stent Right: Ureter [employer] 07/19/2021 [id number] / / [id number] Care Teams Clinical Nurse Specialist Relationship Specialty Start Date End Date Neto Baez [address] [address] PCP - General Family Practice 01/11/20
--- OUTSIDE RECORDS SUMMARY | 2023-07-09 12:12 | XMS_ITS | Referral Summary ---
Author Name Unknown Organization [facility] Address [address] [place] [address] Care Team Providers Care Underground Foreman Name Role Phone SashaEdy membrenoolakvng Encarnacion Primary Care Provider Allergies Active Allergy Reactions Criticality Noted Date Comments Sulfa Antibiotics Anaphylaxis,Swelling High 12/15/19 19 Medications Medication Sig Dispensed Refills Start Date End Date Status omeprazole 20 MG tablet Take 20 mg by mouth daily 0 Active fluticasone (FLONASE) 50 MCG/ACT nasal spray [place] 1 spray into both nostrils daily 0 [...] on file Medical Devices Implanted Type Area Shaper Setter Device Identifier Shelf Expiration Date Model / Serial / Lot Stent Ureteral Polaris Ultra [id number] Implanted:Qty: 1 on 12/18/2018 by Cuco Rapp MD at [facility] Stent Right: Ureter [employer] 07/19/2021 [id number] / / [id number] Care Teams Underground Foreman Relationship Specialty Start Date End Date Neto Baez [address] [address] PCP - General Family Practice 01/11/20
--- OUTSIDE RECORDS SUMMARY | 2023-07-09 12:12 | XMS_ITS | Encounter Summary ---
Author Name Unknown Organization [facility] Address [address] [place] [address] Care Team Providers Care Printed Circuit Board Pcb Draftsman Name Role Phone Neto Baez Primary Care Provider + [phone] Timo Muniz MD Unavailable [phone] Encounter Details Date Type Department Care [...] documented as of this encounter Care Teams Printed Circuit Board Pcb Draftsman Relationship Specialty Start Date End Date Neto Baez [address] [address] PCP - General Family Practice 01/11/20 Timo Muniz MD [address] [place] [address] Assigned Surgical Provider 07/02/20 documented as of this encounter
--- OUTSIDE RECORDS SUMMARY | 2023-07-09 12:12 | XMS_ITS | Encounter Summary ---
Author Name Unknown Organization [facility] Address [address] [place] [address] Care Team Providers Care Barker Operator Name Role Phone Neto Baez Primary Care Provider + [phone] Timo Muniz MD Unavailable [phone] Encounter Details Date Type Department Care [...] documented as of this encounter Care Teams Barker Operator Relationship Specialty Start Date End Date Neto Baez [address] [address] PCP - General Family Practice 01/11/20 Timo Muniz MD [address] [place] [address] Assigned Surgical Provider 07/02/20 documented as of this encounter
--- OUTSIDE RECORDS SUMMARY | 2023-07-09 12:12 | XMS_ITS | Encounter Summary ---
Author Name Unknown Organization [facility] Address [address] [place] [address]. [place] [address] Care Team Providers Care Eyelet Operator Name Role Phone Juan Luis Olivas MD Primary Care Provider [phone] Neto Baez Primary Care Provider + [phone] Cuco Rapp MD Unavailable [phone] Timo Muniz MD Unavailable [phone] Reason for Visit * Reason Onset Date Comments Appointment 12/14/2018 Sooner appointme nt Encounter Details Date Type Department Care Team (Late st Contact Info) Description 12/14/2018 [facility] [address] [place] [address] System, Provider Not In Appointment (Sooner appointment) Social History Tobacco Use Types Packs/Day Years Used Date Smoking Tobacco: Never Assessed Sex and Gender Information Value Date Recorded Sex Assigned at Not on file Gender Identity Not on file Sexual Orientation Not on file documented as of this encounter Miscellaneous Notes * Telephone Encounter - Frannie Brown - 12/14/2018 4:[address] [facility] Call Center Phone Message May a detailed message be left on voicemail: yes Reason for Call: Other: Pt is needing to schedule an appointment at [facility] to be seen for a kidney stone. [...] on filedocumented in this encounter Care Teams Eyelet Operator Relationship Specialty Start Date End Date Juan Luis Olivas MD PCP - General Family Practice 12/14/18 01/10/20 Neto Baez [address] [address] PCP - General Family Practice 01/11/20 Cuco Rapp MD [address] [address] Assigned Surgical Provider 03/24/20 Timo Muniz MD [address] [place], [place] [address] Assigned Surgical Provider 07/02/20 documented as of this encounter
--- OUTSIDE RECORDS SUMMARY | 2023-07-09 12:12 | XMS_ITS | Encounter Summary ---
Author Name Unknown Organization [facility] Address [address] [place] [address]. [place] [address] Care Team Providers Care Food And Nutrition Professor Name Role Phone Neto Baez Primary Care Provider + [phone] Timo Muniz MD Unavailable [phone] Encounter Details Date Type Department Care Team (Late st Contact Info) Description 01/25/2021 [facility] Medical Advice [facility] [address] [place] [address] Cuco Rapp MD [id number] [address] Social History Tobacco Use Types Packs/Day Years [...] documented as of this encounter Care Teams Food And Nutrition Professor Relationship Specialty Start Date End Date Neto Baez [address] [address] PCP - General Family Practice 01/11/20 Timo Muniz MD [address] [place] [address] Assigned Surgical Provider 07/02/20 documented as of this encounter
--- OUTSIDE RECORDS SUMMARY | 2023-07-09 12:13 | XMS_ITS | Clinical Summary ---
Author Name Unknown Organization [facility] Address [place], [place] [address] Care Team Providers Care Laboratory Apparatus Glass Blower Name Role Phone Emery Law MD Unavailable [phone] Pcp, No Primary Care Provider Unavailabl e [...] Comments Blood Pressure 114/80 07/13/2018 2:02 PM BOAT PATCHER PLASTIC Pulse 94 07/13/2018 2:02 PM BOAT PATCHER PLASTIC Temperature 37 ??C (98.6 ??F) 07/13/2018 2:02 PM BOAT PATCHER PLASTIC Respiratory Rate 18 07/13/2018 2:02 PM BOAT PATCHER PLASTIC Oxygen Saturation 97% 07/13/2018 2:02 PM BOAT PATCHER PLASTIC Inhaled Oxygen Concentration - - Weight 114.3 kg (252 lb) 07/13/2018 2:02 PM BOAT PATCHER PLASTIC Height 181.3 cm (5' 11.38) 05/29/2018 9:[address] Body Mass Index 34.78 05/29/2018 9:14 AM BOAT PATCHER PLASTIC Plan of Treatment Health Maintenance Due Date [...] Documents on File Type Date Recorded Patient Termite Technician Expl anation Healthcare Directive 09/18/2009 [facility] are Directive, 09-18-09 Care Teams Laboratory Apparatus Glass Blower Relationship Specialty Start Date End Date Pcp, No . PCP - General 02/22/20 Emery Law MD [address] [facility] [address] [place] [address] Gastroenterology 09/02/13
[2023-07-09 12:23] LABS: Lactate* 1.2 mmol/L (0.5-1.9)
[2023-07-09 12:25] LABS: Basophils Absolute Auto 0.02 K/uL (0.00-0.30); Basophils Percent Auto 0.3 % (0.0-3.0); Eosinophils Percent Auto 1.4 % (0.0-7.0); Hematocrit 49.9 % (37.0-53.0); Hemoglobin* 16.4 gm/dL (13.5-17.5); Immature Granulocytes Abs Auto 0.01 K/uL (0.00-0.30); Immature Granulocytes Pct Auto 0.1 %; Lymphocytes Absolute Auto 1.55 K/uL (0.90-2.90); Lymphocytes Percent Auto 22.3 % (20-44); Mean Corpuscular HGB Conc 33 gm/dL (32-36); Mean Corpuscular Hemoglobin 30 pg (26-34); Mean Corpuscular Volume 92 fL (80-100); Monocytes Percent Auto 7.9 % (0.0-11.0); Neutrophils Absolute Auto 4.71 K/uL (1.7-7.0); Platelet Count* 191 K/uL (140-440); RDW Coefficient of Variation % 12.6 % (11.5-15.5); White Blood Count* 6.94 K/uL (4.50-11.00)
[2023-07-09 12:28] LABS: Slide Review Reflex No
[2023-07-09 12:45] LABS: Albumin* 4.4 g/dL (3.3-5.0); Chloride* 106 mmol/L (96-114); Sodium* 138 mmol/L (135-149)
[2023-07-09 12:46] LABS: Potassium* 4.2 mmol/L (3.6-5.1)
[2023-07-09 12:48] LABS: Alkaline Phosphatase* 87 U/L (40-150); Anion Gap 10 mEq/L (7-15); Aspartate Amino Transferase* 22 U/L (12-35); Bilirubin Total* 0.9 mg/dL (0.1-1.5); Blood Urea Nitrogen* 16 mg/dL (7-30); Calcium* 9.3 mg/dL (8.4-10.6); Carbon Dioxide* 22 mmol/L (20-32); Est. Creatinine Clearance* 88.38; Estimated Glomerular Filt Rate 87 ml/min; Glucose* 121 mg/dL (60-115); Total Protein* 7.9 g/dL (6.0-8.3)
[2023-07-09 12:49] LABS: Alanine Aminotransferase* 52 U/L (4-50); Magnesium* 2.3 mg/dL (1.5-2.6)
[2023-07-09 13:01] LABS: NT Pro B Type NatriureticPept* < 20 pg/mL; Troponin I* < 0.01 ng/mL (0.01-0.04)
[2023-07-09 13:03] LABS: PCR FLU A Negative PCR FLU A (Negative); PCR FLU B Negative PCR FLU B (Negative); PCR RSV Negative PCR RSV (Negative); SARS PCR* Negative SARS-CoV-2 (Negative)
--- NOTE | 2023-07-09 13:16 | CRLHL7_ITS ---
For Patients: As a result of the Century Cures Act, medical imaging exams and procedure reports are released immediately into your electronic medical record. You may view this report before your referring provider. If you have questions, please contact your health care provider. INDICATION: PE, recent orthopedic surgery. TECHNIQUE: Ultrasound venous duplex bilateral lower extremity. Compression venous exam was performed using long-scale, color Doppler, and spectral Doppler analysis. COMPARISON: None. FINDINGS: Limited evaluation of the right calf due to cast from recent orthopedic surgery. There is occlusive thrombus within the right gastrocnemius and peroneal veins involving the visualized portions noting the distal portions were obscured by the patient`s cast. The right common femoral, deep femoral, superficial femoral, and popliteal veins were compressible with normal color Doppler blood flow. Sonographic imaging demonstrates the left common femoral, deep femoral, superficial femoral, popliteal, peroneal, and posterior tibial veins to be fully compressible with normal color Doppler blood flow. Superficial veins: Greater saphenous vein is fully compressible. IMPRESSION: 1. Occlusive thrombus within the right gastrocnemius and peroneal veins, partially obscured by the patient`s cast. 2. No left lower extremity DVT. Dictated by Stella Guzmán MD @ 07/09/2023 2:27:05 PM (Electronically Signed)
[2023-07-09 13:47] LABS: D Dimer Quantitative* > 20.00 ug/ml (0.00-0.50)
[2023-07-09] MEDS: HEPARIN 5,000 UNIT/0.5 ML INJ 8700 UNIT IVP (14:06)
[2023-07-09] MEDS: HEPARIN 25,000 UNIT/500 ML BAG 30 UNIT IV ×2 (14:07→17:43)
[2023-07-09 15:10] LABS: INR 1.06 (0.91-1.10); Prothrombin Time 14.4 Seconds
[2023-07-09 15:11] LABS: Partial Thromboplastin Time* 32 Seconds (23-33)
--- NOTE | 2023-07-09 19:57 | PC.NURSE ---
Pt reports SOB and chest heaviness has diminished some. Bedrest with use of urinal and bedside commode. Heparin protocol being followed per JUL. Pt denies pain in surgically repaired and casted right LE. Toes bilat where cold with proper cap refill. Pt has Crohns and understand proper meal planning. Pt has Crohns infusion set for Friday 07/[address] [facility]; hoping to not have to miss that appointment.
[2023-07-09 21:00] LABS: Partial Thromboplastin Time* 100 Seconds (23-33)
--- NOTE | 2023-07-09 21:52 | P.IMHP_ITS ---
Hospitalist- H&P: CINTHIA History of Present Illness Date Seen: 07/09/23 Chief complaint: came from ortho- blood clots Narrative: Jackson Guzman is a 58 year old male with ankle fracture and ORIF now presents with a 10 day history of progressive dyspnea. Patient was hiking in [place] on June 21, 2023 when he had a fall coming down a mountain. He sustained a Garsia C right ankle fracture. He was seen in the emergency department in [place] and decided to return to [place] for [facility] care. On June 22 he flew back to [place]. On June 24 he underwent ORIF of his ankle fracture with Dr. De Luna. There were no immediate complications. Postoperatively he was generally doing well. He noted 1st having unusual shortness of breath on FridayJune 29. He thought this was his asthma so he used an albuterol inhaler which was of no benefit. His breathing got much worse on FridayJuly 05. Again concerned about asthma he used an inhaler without relief. At that time he is also feeling some chest pressure. He had very poor tolerance of any activity. He is not aware of any ankle swelling. He had a bulky splint on his ankle after surgery. He has been getting around with a kneeling walker and crutches. He reports pain control is been very good and not needing pain medication. He had a new cast placed in clinic today. In the emergency department today he was found to have a large burden of bilateral saddle pulmonary emboli. CT suggests right heart strain as well. He has had no history of previous DVT or PE and no family history of thrombophilia. He does not smoke. He does have asthma which is generally very well controlled and quite mild with very infrequent use of his rescue inhaler. No other history of lung or heart disease. He does have Crohn's disease which has been fairly well controlled with infliximab. Infrequently has rectal bleeding associated with this Review of Systems Narrative: Other than his dyspnea and chest heaviness he reports he is doing quite well. No other illness or exposures. No other significant injuries from his fall [facility] Medical History (Updated 07/09/23 @ 22:11 by Rolando Noyola MD) Deep vein thrombosis of right lower limb ?I82.401 - Acute embolism and thrombosis of unspecified deep veins of right lower extremity (ICD-10) Acute saddle pulmonary embolism ?I26.92 - Saddle embolus of pulmonary artery without acute cor pulmonale (ICD-10) Family history of prostate cancer in father ?Z80.42 - Family history of malignant neoplasm of prostate (ICD-10) Obesity with body mass index greater than 30 ?E66.9 - Obesity, unspecified (ICD-10) Hearing loss of left ear ?H91.92 - Unspecified hearing loss, left ear (ICD-10) Chronic bilateral iritis ?H20.13 - Chronic iridocyclitis, bilateral (ICD-10) Asthma ?J45.909 - Unspecified asthma, uncomplicated (ICD-10) Allergic rhinitis ?J30.9 - Allergic rhinitis, unspecified (ICD-10) History of nephrolithiasis ?Z87.442 - Personal history of urinary calculi (ICD-10) History of vitamin D deficiency ?Z86.39 - Personal history of other endocrine, nutritional and metabolic disease (ICD-10) History of hemorrhoids ?Z87.19 - Personal history of other diseases of the digestive system (ICD-10) Surgical History (Updated 07/09/23 @ 22:11 by Rolando Noyola MD) History of open reduction and internal fixation (ORIF) procedure (06/24/23) ?Z98.890 - Other specified postprocedural states (ICD-10) History of umbilical hernia repair (2004) ?Z98.890 - Other specified postprocedural states (ICD-10) ?Z87.19 - Personal history of other diseases of the digestive system (ICD-10) History of tympanoplasty of left ear ?Z98.890 - Other specified postprocedural states (ICD-10) History of lithotripsy (2018) ?Z98.890 - Other specified postprocedural states (ICD-10) History of colonoscopy (06/26/17) ?Z98.890 - Other specified postprocedural states (ICD-10) History of cholecystectomy ?Z90.49 - Acquired absence of other specified parts of digestive tract (ICD- 10) Family History Father Prostate cancer, Onset Age: 52 Social History (Updated 07/09/23 @ 22:02 by Rolando Noyola MD) Narrative: Patient lives with his in [place]. He works in [employer] for [employer]. He does not smoke. He rarely drinks alcohol. Has no recreational drug use. 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 Code status is full. What is your current living situation?: I presently have a place to live Problems where you live: no known problems Problems where you live details: n/a In the past 12 months, utilities in danger of being shut off: no In past 12 months, lack of transportation kept you from medical appts, meetings, work, or getting things needed for daily living: no In the past 12 mos, have been you worried that your food would run out before you had money to buy more?: never true In the past 12 mos, the food you bought just didn't last and you didn't have money to buy more?: never true Highest level of school completed/degree received: Bachelor's degree Smoking Status: Never smoker Do you use any of these nicotine containing products: None Second hand tobacco smoke exposure: No How often do you have a drink containing alcohol: monthly or less How many standard drinks containing alcohol do you have on a typical day: 1 or 2 How often do you have six or more drinks on one occasion: Never AUDIT-C Alcohol total score: 1 Non-prescribed substance use: denies use Caffeine: Yes (tea) How often does anyone, including family, friends and others, physically hurt you : never How often does anyone, including family, friends and others, insult or talk down to you: never How often does anyone, including family, friends and others, threaten you with harm: never How often does anyone, including family, friends and others, scream or curse at you: never Little interest or pleasure in doing things: not at all Feeling down, depressed, or hopeless: several days service: No Meds Home Medications and Allergies Home Medications Medication Instructions Recorded Confirmed Type ascorbic acid (vitamin C) 250 mg 250 mg PO DAILY 09/05/22 07/09/23 History tablet cholecalciferol (vitamin D3) 50 2,000 unit PO DAILY 09/05/22 07/09/23 History mcg (2,000 unit) capsule multivitamin 1 tab PO QAM 09/05/22 07/09/23 History infliximab 100 mg intravenous mg IV 06/23/23 07/09/23 History solution fluticasone propionate 50 1 spray intranasal DAILY 07/09/23 07/09/23 History mcg/actuation nasal spray,suspension Allergies Allergy/AdvReac Type Severity Reaction Status Date / Time cigarette smoke Allergy Unknown Unknown Verified 07/09/23 09:34 dog dander Allergy Unknown Unknown Verified 07/09/23 09:34 grass pollen Allergy Unknown Unknown Verified 07/09/23 09:34 house dust Allergy Unknown Unknown Verified 07/09/23 09:34 pollen extracts Allergy Unknown Unknown Verified 07/09/23 09:34 Sulfa (Sulfonamide Allergy rash, lip Verified 07/09/23 09:34 Antibiotics) swelling Cat hair extract Allergy Unknown Unknown Uncoded 07/09/23 09:34 Chicken feathers Allergy Unknown Unknown Uncoded 07/09/23 09:34 Exam Narrative: Exam Narrative: He is alert and appears in no distress. He gives his own history. Eyes normal. Oropharynx normal. Neck is supple without mass or adenopathy. Respirations are clear to auscultation. No wheezing rales or rhonchi. Cardiovascular: S1, S2, regular rate and rhythm. Abdomen: Bowel sounds active. Abdomen is soft without tenderness or mass. Upper extremities are normal. Bilateral lower extremities are examined. Below the knee cast on the right leg is noted. No marked edema. Minimal superficial abrasions around the knees bilaterally without obvious cellulitis or abscess. Intact pulses and sensation in his toes. Const: Vital Signs, click to edit/add: Vital Signs - 24 hr 07/09/23 11:19 07/09/23 12:20 07/09/23 12:28 Temperature 97.3 F L Pulse Rate 83 Pulse Rate [Pulse Oximeter] 87 Respiratory Rate 20 Blood Pressure Blood Pressure [Ri ght Forearm] 145/100 H Pulse Oximetry 95 95 95 Oxygen Delivery Me thod Room Air 07/09/23 12:29 07/09/23 12:30 07/09/23 12:45 Temperature Pulse Rate 82 87 85 Pulse Rate [Pulse Oximeter] Respiratory Rate Blood Pressure 119/95 H Blood Pressure [Ri ght Forearm] Pulse Oximetry 95 93 94 Oxygen Delivery Me thod 07/09/23 13:04 07/09/23 13:15 07/09/23 13:30 Temperature Pulse Rate 93 88 90 Pulse Rate [Pulse Oximeter] Respiratory Rate Blood Pressure Blood Pressure [Ri ght Forearm] Pulse Oximetry 95 96 95 [facility] 07[facility] 13:57 07/09/23 13:58 07/09/23 14:00 Temperature Pulse Rate 93 94 92 Pulse Rate [Pulse Oximeter] Respiratory Rate Blood Pressure 139/95 H Blood Pressure [Ri ght Forearm] Pulse Oximetry 96 94 96 Oxygen Delivery [place] thod 07/09/23 14:15 07/09/23 14:30 07/09/23 14:32 Temperature Pulse Rate 84 84 89 Pulse Rate [Pulse Oximeter] Respiratory Rate Blood Pressure 149/106 H Blood Pressure [Ri ght Forearm] Pulse Oximetry 96 94 95 Oxygen Delivery [place] thod 07/09/23 14:45 07/09/23 15:00 07/09/23 15:02 Temperature Pulse Rate 81 83 79 Pulse Rate [Pulse Oximeter] Respiratory Rate Blood Pressure 146/96 H Blood Pressure [Ri ght Forearm] Pulse Oximetry 95 95 93 [facility] 07/09/23 15:03 07/09/23 15:15 07/09/23 15:30 Temperature Pulse Rate 80 92 85 Pulse Rate [Pulse Oximeter] Respiratory Rate Blood Pressure Blood Pressure [Ri ght Forearm] Pulse Oximetry 95 95 96 [facility] 07/09/23 15:31 07/09/23 15:32 07/09/23 15:45 Temperature Pulse Rate 86 88 85 Pulse Rate [Pulse Oximeter] Respiratory Rate Blood Pressure 133/97 H Blood Pressure [Ri ght Forearm] Pulse Oximetry 94 95 94 [facility] 07/09/23 16:00 07/09/23 16:02 07/09/23 16:03 Temperature Pulse Rate 87 Pulse Rate [Pulse Oximeter] Respiratory Rate 20 Blood Pressure 140/82 H Blood Pressure [Ri ght Forearm] Pulse Oximetry 95 [facility] 07/09/23 16:15 07/09/23 17:48 07/09/23 18:00 Temperature 98.1 F Pulse Rate 87 Pulse Rate [Pulse Oximeter] Respiratory Rate 20 Blood Pressure Blood Pressure [Ri ght Forearm] Pulse Oximetry 96 96 [facility] Room Air Documenting provider has reviewed patient's vital signs: yes Hospitalist - H&P: Result Labs Labs: Short CBC 07/09/23 Range/Units 12:15 WBC 6.94 (4.50-11.00) K/uL Hgb 16.4 (13.5-17.5) gm/dL Hct 49.9 (37.0-53.0) % Plt Count 191 (140-440) K/uL BMP 07/09/23 12:15 Sodium 138 Potassium 4.2 Chloride 106 Carbon Dioxide 22 BUN 16 Creatinine 1.0 Glucose 121 H Calcium 9.3 Cardiac Enzymes 07/09/23 Range/Units 12:15 Troponin I < 0.01 L (0.01-0.04) ng/mL Liver Function 07/09/23 Range/Units 12:15 Total Bilirubin 0.9 (0.1-1.5) mg/dL AST 22 (12-35) U/L ALT 52 H (4-50) U/L Alkaline Phosphatase 87 (40-150) U/L Albumin 4.4 (3.3-5.0) g/dL Imaging CT scan - chest: Radiologist's impression: INDICATION: Recent orthopedic surgery, shortness of breath, chest discomfort. TECHNIQUE: CT chest PE was acquired with 95 Isovue 370 cc Omnipaque 350 IV contrast. COMPARISON: None. FINDINGS: Heart and vasculature: Contrast opacification of the pulmonary arteries is adequate. There is a saddle pulmonary embolism that extends into the main pulmonary arteries as well as right upper, lower lobar, segmental and subsegmental arteries. Emboli also extend into the left upper, lingular and lower lobe lobar, segmental and subsegmental arteries. The main pulmonary artery is enlarged measuring 4.1 cm in diameter. Increased RV/LV ratio measuring approximately 1.1. Ectasia of the ascending thoracic aorta measuring 4.1 cm. 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 Lungs and pleura: Mild pleural-based consolidation within the inferior aspect of the right lower lobe. No pleural effusion or pneumothorax. Lymph nodes/mediastinum: No mediastinal, hilar, or axillary adenopathy. There is a 3.1 x 2.7 cm round well-circumscribed soft tissue density mass within the anterior mediastinum. Chest wall: No masses. Upper abdomen: Hypodense lesion measuring 2.4 by 1.8 cm adjacent to the gallbladder fossa is incompletely characterize. Additional too small to characterize hypodensity in the left hepatic lobe. Post cholecystectomy. Bones: Unremarkable for age. IMPRESSION: 1. Saddle pulmonary embolism extending into bilateral main, lobar, segmental and subsegmental pulmonary arteries. There is CT evidence of right heart strain. 2. 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 3. Well circumscribed anterior mediastinal mass measuring 3.1 cm, differential considerations include thymoma among other thymic conditions (thymolipoma, thymic hyperplasia), lymphoma, germ-cell tumor. Recommend nonemergent MRI with and without contrast (including in and out of phase imaging) for further evaluation. 4. Incompletely characterized hypodense liver lesion adjacent to the gallbladder fossa. This can be further evaluated with liver mass protocol MRI or CT on a nonemergent basis. Finding 1 discussed via telephone with Dr. Sanchez on 07/09/2023 at 1:42 p.m. Assessment and Plan Assessment and plan (1) Acute saddle pulmonary embolism: Problem comment: Initiate heparin. Transition to apixaban when clinically improving. Specialist at [facility] contacted. No current indication for thrombectomy unless clinical deterioration. Minimum 3 months anticoagulation. Status: Acute (2) Deep vein thrombosis of right lower limb: Problem comment: Unfractionated heparin switching to apixaban Status: Acute (3) Crohn's disease: Problem comment: Followed by [facility] (Dr. Emery Law), on inflixamab infusions. Continue routine infliximab care. A flare of Crohn's disease would be challenging while on anticoagulation Status: Acute (4) Liver lesion: Problem comment: Incidental finding of a hypodense liver lesion adjacent to the gallbladder fossa seen on chest CT from July 09. Further evaluation with liver mass protocol MRI or CT as an outpatient recommended. Information given to patient and . Status: Acute (5) Mediastinal mass: Problem comment: Well-circumscribed anterior mediastinal mass of 3.1 cm. Incidental finding on chest CT from July 09. Radiologist recommends outpatient MRI with and without contrast to further evaluate. Information for patient and given Status: Acute (6) Thoracic aortic ectasia: Problem comment: Ascending thoracic aortic ectasia 4.1 cm with aneurysmal dilatation of the aortic arch at 3.9 cm. Incidental finding on chest CT 07/09/2023. Outpatient follow-up. Information for patient and given Status: Acute (7) Asthma: Problem comment: on albuterol as needed (no controller inhaler). Quiescent. Status: Acute (8) History of open reduction and internal fixation (ORIF) procedure: Problem comment: Fibula fracture IM nailing plus syndesmotic screw x2 (Dr. De Luna 06/24/2023). Nonweightbearing. Doing well. Status: Acute Plan Patient is admitted to the hospital for managing pulmonary emboli. IV heparin with transition to oral apixaban when clinically improving. Monitor vital signs closely. If deterioration in condition contact [facility] again for intervention and ICU care. Total time spent today is 85 minutes, 55 minutes in coordination of care and discussing with patient and other providers management of PE/DVT/Crohn's disease
[2023-07-10] VITALS (7 sets, daily range): BP systolic 120–152; BP diastolic 60–97; PULSE 62–88; RESP 18–20; TEMP 36.2–36.6; O2SAT 91–98
[2023-07-10 03:37] LABS: Hematocrit 45.3 % (37.0-53.0); Hemoglobin* 15.1 gm/dL (13.5-17.5); Mean Corpuscular HGB Conc 33 gm/dL (32-36); Mean Corpuscular Hemoglobin 30 pg (26-34); Mean Corpuscular Volume 91 fL (80-100); Platelet Count* 183 K/uL (140-440); Red Blood Count 4.97 m/uL (4.30-5.90); White Blood Count* 6.76 K/uL (4.50-11.00)
[2023-07-10 03:39] LABS: Slide Review Reflex No
[2023-07-10 03:51] LABS: INR 1.05 (0.91-1.10); Prothrombin Time 14.4 Seconds
[2023-07-10 05:46] LABS: Partial Thromboplastin Time* 72 Seconds (23-33)
--- NOTE | 2023-07-10 06:12 | PC.NURSE ---
Shift note: Pt has been in bed throughout the shift. IV Heparin was infusing at 1500 at the start of the shift at 1900. PTT checked at 2000 was 100 and rate decreased to 1300 per protocol. Ptt time for 0300 but result transmitted at 0500 was 72. No change to Heparin infusion. PTT timed at 1109. Denied SOB, cough and pain. Pt is cooperate with treatment. Alert and oriented. Lungs sound clear bilaterally. Vitally stable.
[2023-07-10] MEDS: OMEPRAZOLE 20 MG CAPSULE DR PO (06:40)
[2023-07-10] MEDS: HEPARIN 25,000 UNIT/500 ML BAG 26 UNIT IV ×2 (09:17→13:40)
[2023-07-10] MEDS: SODIUM CHLORIDE 0.9 % (FLUSH) 10 ML SYRINGE 5 ML IVF (09:30)
[2023-07-10 11:57] LABS: Partial Thromboplastin Time* 52 Seconds (23-33)
--- NOTE | 2023-07-10 13:36 | P.IMPN_ITS ---
Progress Note: A&P Assessment and plan (1) Acute saddle pulmonary embolism: Problem details: Initiate heparin. Transition to apixaban when clinically improving. Specialist at [facility] contacted. No current indication for thrombectomy unless clinical deterioration. Minimum 3 months anticoagulation. Echocardiogram shows trace pericardial effusion, EF 60-65%, normal global systolic function, no significant valvular abnormalities Status: Acute (2) Deep vein thrombosis of right lower limb: Problem details: Unfractionated heparin switching to apixaban Status: Acute (3) Crohn's disease: Problem details: Followed by [facility] (Dr. Emery Law), on inflixamab infusions. Continue routine infliximab care (next infusion scheduled for 07/14/2023). A flare of Crohn's disease would be challenging while on anticoagulation Status: Acute (4) Liver lesion: Problem details: Incidental finding of a hypodense liver lesion adjacent to the gallbladder fossa seen on chest CT from July 09. Further evaluation with liver mass protocol MRI or CT as an outpatient recommended. Information given to patient and . Status: Acute (5) Mediastinal mass: Problem details: Well-circumscribed anterior mediastinal mass of 3.1 cm. Incidental finding on chest CT from July 09. Radiologist recommends outpatient MRI with and without contrast to further evaluate. Information for patient and given Status: Acute (6) Thoracic aortic ectasia: Problem details: Ascending thoracic aortic ectasia 4.1 cm with aneurysmal dilatation of the aortic arch at 3.9 cm. Incidental finding on chest CT 07/09/2023. Outpatient follow-up. Information for patient and given Status: Acute (7) Asthma: Problem details: on albuterol as needed (no controller inhaler). Quiescent. Status: Acute (8) History of open reduction and internal fixation (ORIF) procedure: Problem details: Fibula fracture IM nailing plus syndesmotic screw x2 (Dr. De Luna 06/24/2023). Nonweightbearing. Doing well. Status: Acute Plan Possible discharge tomorrow pending continued clinical improvement, transitioning to oral anticoagulant. Time Spent With Patient Total time spent: Total time spent caring for the patient today was 45 minutes. This includes time spent for the visit reviewing the chart, time spent during the visit, time spent after the visit and documentation and planning in coordination of care. Subjective Date Seen: 07/10/23 Interval history: Patient is doing well this morning. Has no complaints. Cast was placed yesterday. Toes feel little swollen, chronically always cold. No events reported overnight. Exam Narrative: Exam Narrative: PHYSICAL EXAM General: Pleasant, conversant, NAD HEENT: Normocephalic, atraumatic, sclera white, EOMI, oral mucosa moist Cardiovascular: RRR, S1S2. No pitting edema Pulmonary: CTA bilaterally without rhonchi, rales, expiratory wheezes. No dyspnea Abdominal: Soft, nondistended, NTTP Neurological: Alert, answering questions appropriately, cranial nerves intact, no focal findings Extremities: Right lower extremity casted, mild swelling of digits, mobile, cool to touch, pink in color. Neurovascularly intact Skin: Warm, dry. Const: Vital Signs, click to edit/add: Vital Signs - 24 hr 07/09/23 13:57 07/09/23 13:58 07/09/23 14:00 Temperature Pulse Rate 93 94 92 Respiratory Rate Blood Pressure 139/95 H Blood Pressure [Le ft Arm] Pulse Oximetry 96 94 96 [facility] 07/09/23 14:15 07/09/23 14:30 07/09/23 14:32 Temperature Pulse Rate 84 84 89 Respiratory Rate Blood Pressure 149/106 H Blood Pressure [Le ft Arm] Pulse Oximetry 96 94 95 [facility] 07/09/23 14:45 07/09/23 15:00 07/09/23 15:02 Temperature Pulse Rate 81 83 79 Respiratory Rate Blood Pressure 146/96 H Blood Pressure [Le ft Arm] Pulse Oximetry 95 95 93 [facility] 07/09/23 15:03 07/09/23 15:15 07/09/23 15:30 Temperature Pulse Rate 80 92 85 Respiratory Rate Blood Pressure Blood Pressure [Le ft Arm] Pulse Oximetry 95 95 96 [facility] 07/09/23 15:31 07/09/23 15:32 07/09/23 15:45 Temperature Pulse Rate 86 88 85 Respiratory Rate Blood Pressure 133/97 H Blood Pressure [Le ft Arm] Pulse Oximetry 94 95 94 [facility] 07/09/23 16:00 07/09/23 16:02 07/09/23 16:03 Temperature Pulse Rate 87 Respiratory Rate 20 Blood Pressure 140/82 H Blood Pressure [Le ft Arm] Pulse Oximetry 95 [facility] 07/09/23 16:15 07/09/23 17:48 07/09/23 18:00 Temperature 98.1 F Pulse Rate 87 Respiratory Rate 20 Blood Pressure Blood Pressure [Le ft Arm] Pulse Oximetry 96 96 Oxygen Delivery Hi thod Room Air Room Air 07/09/23 19:00 07/09/23 23:00 07/09/23 23:00 Temperature 98.6 F 97.5 F L Pulse Rate 77 Respiratory Rate 20 20 Blood Pressure Blood Pressure [Le ft Arm] 149/90 H 133/103 H Pulse Oximetry 95 91 [facility] Room Air 07/09/23 23:00 07/10/23 03:00 07/10/23 09:30 Temperature 97.2 F L Pulse Rate Respiratory Rate 20 18 18 Blood Pressure Blood Pressure [Le ft Arm] 138/96 H Pulse Oximetry 94 [facility] 07/10/23 09:30 Temperature 97.6 F Pulse Rate Respiratory Rate 18 Blood Pressure Blood Pressure [Le ft Arm] 134/97 H Pulse Oximetry 93 [facility] Labs Labs: Laboratory Results - last 24 hr 07/09/23 07/09/23 07/09/23 12:15 13:57 20:24 WBC RBC Hgb Hct MCV MCH MCHC Plt Count INR 1.06 APTT 32 100 H D-Dimer Quant (PE/DVT) > 20.00 H 07/10/23 07/10/23 03:25 11:26 WBC 6.76 RBC 4.97 Hgb 15.1 Hct 45.3 MCV 91 MCH 30 MCHC 33 Plt Count 183 INR 1.05 APTT 72 H 52 H D-Dimer Quant (PE/DVT)
[2023-07-10] MEDS: ONDANSETRON 2 MG/ML inj 4 MG IVP (13:38)
[2023-07-10] MEDS: HEPARIN 5,000 UNIT/0.5 ML INJ 3300 UNIT IVP (13:39)
[2023-07-10] MEDS: HEPARIN 25,000 UNIT/500 ML BAG 30 UNIT IV (13:41)
--- NOTE | 2023-07-10 18:27 | PC.NURSE ---
Pt states breathing feels easier today. I don't feel so heavy chested. Heparin infusion protocol followed, see MAR. Up to BR with crutches due to pt being NWB to casted right leg from prior sx.
[2023-07-10 19:58] LABS: Partial Thromboplastin Time* 95 Seconds (23-33)
[2023-07-11 00:47] VITALS: PULSE 67
[2023-07-11 02:28] LABS: Partial Thromboplastin Time* 78 Seconds (23-33)
[2023-07-11 03:00] VITALS: BP 120/94; PULSE 69; RESP 18; TEMP 36.6; O2SAT 96
[2023-07-11] MEDS: HEPARIN 25,000 UNIT/500 ML BAG 26 UNIT IV (03:03)
--- NOTE | 2023-07-11 05:06 | PC.NURSE ---
Shift note: Pt is doing well ambulating with the clutches in room. No SOB, chest pain and dizziness observed. Heparin dose was adjust per protocol using the PTT test outcome. NWB to the right leg. Pt denied pain.
[2023-07-11 07:00] VITALS: PULSE 86
[2023-07-11] MEDS: APIXABAN 5 MG TABLET 10 MG PO (09:24)
[2023-07-11] MEDS: MULTIVITAMIN/MINERALS 1 TABLET 1 TAB PO (09:24)
[2023-07-11] MEDS: ASCORBIC ACID 500 MG TABLET 250 MG PO (09:24)
[2023-07-11 09:28] VITALS: PULSE 69; RESP 18
[2023-07-11 09:37] LABS: Partial Thromboplastin Time* 39 Seconds (23-33)
[2023-07-11 11:00] VITALS: BP 127/89; PULSE 78; RESP 18; O2SAT 96
--- NOTE | 2023-07-11 11:13 | P.DS_ITS ---
DS: Providers Provider Date Seen: 07/11/23 Date of admission: 07/09/23 17:05 Primary care physician: Deborah Sin MD Admitting Clinician: Rolando Noyola MD Attending Physician on discharge: Lisa Mccabe [facility] Date of Discharge: 07/11/23 DS: Diagnosis Discharge Diagnosis (1) Acute saddle pulmonary embolism: Status: Acute Problem details: Patient was initiated on heparin drip and transition to oral apixaban on day of discharge. Specialist at [facility] was contacted recommending no current indication for thrombectomy unless clinical deterioration. Will need minimum 3 months anticoagulation. Echocardiogram completed shows trace pericardial effusion, EF 60-65%, normal global systolic function, no significant valvular abnormalities (2) Deep vein thrombosis of right lower limb: Status: Acute Problem details: Discharged on oral apixaban (3) Crohn's disease: Status: Acute Problem details: Followed by [facility] (Dr. Emery Law), on inflixamab infusions. Continue routine infliximab care (next infusion scheduled for 07/14/2023). (4) Liver lesion: Status: Acute Problem details: Incidental finding of a hypodense liver lesion adjacent to the gallbladder fossa seen on chest CT from July 09. Further evaluation with liver mass protocol MRI or CT as an outpatient recommended. Information given to patient and . (5) Mediastinal mass: Status: Acute Problem details: Well-circumscribed anterior mediastinal mass of 3.1 cm. Incidental finding on chest CT from July 09. Radiologist recommends outpatient MRI with and without contrast to further evaluate. 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 Incidental finding on chest CT 07/09/2023. Outpatient follow-up. Information for patient and given (7) Asthma: Status: Acute Problem details: Quiescent. (8) History of open reduction and internal fixation (ORIF) procedure: Status: Acute Problem details: Fibula fracture IM nailing plus syndesmotic screw x2 (Dr. De Luna 06/24/2023). Nonweightbearing. Managed by Orthopedic surgery. Will follow-up in the outpatient orthopedic clinic in 4 weeks. DS: Summary Hospital Course Hospital Course: [age] year old male past medical history significant for Crohn's disease, asthma was admitted to the medical floor for management saddle pulmonary emboli and right lower extremity DVT. Course of care and details as noted above. Patient was transition from IV heparin to oral apixaban to complete no less than a 3 month course. Outpatient follow-up with PCP for ongoing management. Incidental findings as described above with further outpatient workup. Will continue orthopedic surgery recommendations for care of right lower extremity fracture. Has been instructed to follow-up in the orthopedic clinic in 4 weeks. Remainder of chronic medical comorbidities were monitored and managed with home medications. Status at Discharge Overall status at discharge: patient is not back to baseline Time Spent with Patient Time attestation: Total time spent providing and/or coordinating discharge services: Time spent: Greater than 30 minutes Exam Narrative: Exam Narrative: PHYSICAL EXAM General: Pleasant, conversant, NAD Cardiovascular: RRR Pulmonary: No dyspnea Neurological: Alert, answering questions appropriately Skin: Warm, dry. Const: Vital Signs, click to edit/add: Vital Signs - 24 hr 07/10/23 15:00 07/10/23 15:00 07/10/23 15:00 Temperature 97.8 F Pulse Rate 88 Pulse Rate [Right Pulse Oximeter] Respiratory Rate 20 20 Blood Pressure [Le ft Arm] 120/92 H Pulse Oximetry 91 Oxygen Delivery Me thod Room Air 07/10/23 19:00 07/10/23 23:00 07/11/23 00:47 Temperature 97.8 F 98 F Pulse Rate 67 Pulse Rate [Right Pulse Oximeter] 81 62 Respiratory Rate 18 18 Blood Pressure [Le ft Arm] 125/60 152/88 H Pulse Oximetry 95 98 Oxygen Delivery Ne thod Room Air Room Air 07/11/23 03:00 07/11/23 07:00 07/11/23 09:28 Temperature 98 F Pulse Rate 86 Pulse Rate [Right Pulse Oximeter] 69 69 Respiratory Rate 18 18 Blood Pressure [Le ft Arm] 120/94 H Pulse Oximetry 96 Oxygen Delivery Me thod Room Air 07/11/23 11:00 Temperature Pulse Rate Pulse Rate [Right Pulse Oximeter] 78 Respiratory Rate 18 Blood Pressure [Le ft Arm] 127/89 Pulse Oximetry 96 Oxygen Delivery Ne thod Room Air DS: Data Data Completed and Pending Labs on day of discharge: Labs from last 24 hours 07/11/23 07/11/23 07/10/23 09:09 02:05 19:30 APTT 39 H 78 H 95 H 07/10/23 11:26 APTT 52 H Discharge Plan Discharge Disposition: Home, Self-Care Date of Admission: 07/09/23 17:05 Attending Provider on Discharge: Lisa Mccabe Primary Care Provider: Deborah Sin Condition: Improved Anticipated Discharge Date/Time: 07/11/23 10:57 Discharge Medications: New apixaban 5 mg tablet 5 mg PO BID Qty: 180 1RF Rx Instructions: Take 10 mg (2 tablets) twice daily for 7 days. Then take 5 mg (1 tablet) twice daily. Continued multivitamin Tablet 1 tab PO QAM ascorbic acid (vitamin C) 250 mg tablet 250 mg PO DAILY cholecalciferol (vitamin D3) 50 mcg (2,000 unit) capsule 2,000 unit PO DAILY infliximab 100 mg recon soln IV Rx Instructions: Remicade fluticasone propionate 50 mcg/actuation spray,suspension 1 spray intranasal DAILY Rx Instructions: administer into each nostril omeprazole 20 mg capsule,delayed release(DR/EC) 20 mg PO DAILY Qty: 90 3RF albuterol sulfate 90 mcg/actuation HFA aerosol inhaler 2 - 4 puff inhalation Q4H PRN (Reason: shortness of breath or wheezing) Qty: 6.7 11RF No Action (DME) Crutches- Adult Misc See Rx Instructions .Route Qty: 1 0RF Rx Instructions: As directed (DME) Knee Scooter- Adult Misc See Rx Instructions .ROUTE .MEDSUPPLY Qty: 1 0RF Rx Instructions: As directed Discharge Orders: Discharge Order (Routine); Ordered 07/11/23 Ordered By: Lisa Mccbae Patient Education: Apixaban (By mouth), Pulmonary Embolism (GEN), Deep Vein Thrombosis (GEN) Additional Instructions: You will continue on anticoagulation, Apixiban, 10 mg twice daily for a total of 7 days, followed by 5 mg twice daily to complete at least a 3 month course. Complete length of course of treatment to be determined with your PCP. Follow orthopedic recommendations with outpatient follow-up as instructed. Incidental findings during your hospital stay requiring outpatient follow-up: -hypodense liver lesion adjacent to the gallbladder fossa seen on chest CT from July 09. Further evaluation with liver mass protocol MRI or CT as an outpatient recommended -Well-circumscribed anterior mediastinal mass of 3.1 cm. Incidental finding on chest CT from July 09. 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 Incidental finding on chest CT 07/09/2023. Further outpatient work up Activity Level: No Weight Bearing and Weight Bearing as Tolerated Discharge Diet: Regular Follow Up Appointments: Deborah Sin MD [Primary Care Provider] - 07/23/23 (Post hospital follow up. Saddle PE, RLE DVT. Incidental findings requiring outpatient follow up: Liver lesion, further evaluation with liver mass protocol MRI or CT; mediastinal mass further evaluation with MRI with and without contrast; thoracic aortic ectasia with further outpatient workup) Forms: [facility] Info Instructions
--- NOTE | 2023-07-11 14:34 | PC.NURSE ---
Nursing Care Hours: [id number] Pt this shift alert and oriented, calm and cooperative, SB assist in room with crutches. DC'd Heparin and IV. CMS intact in R foot. LS clear, no cough, on RA. Pt reported scant red blood after wiping in bathroom. Prior to DC pt had another BM and automotive service writer observed scant bright red streaks in stool. Educated pt on blood thinners and signs of bleeding that would require further evaluation. Server Administrator told client to look for clots, increased breathing, cool clammy skin, or dizziness upon standing and to come to ED to be evaluated. DC work gone over with pt and spouse. Pt wheeled out to vehicle in stable condition
== END 2023-07-11 12:21 | disposition home or self-care (01) | DRG 134 ==
LOC: ED 12:10 → MEDSURG 16:25
PROVIDERS: Physician Assistant; Admitting Provider Family Medicine; Emergency Provider Family Medicine; PCP Internal Medicine; Visit Provider Family Medicine
DX: I26.92 Saddle embolus of pulmonary artery without acute cor pulmonale (principal); I82.461 Acute embolism and thrombosis of right calf muscular vein; I82.451 Acute embolism and thrombosis of right peroneal vein; Z86.718 Personal history of other venous thrombosis and embolism; Z79.01 Long term (current) use of anticoagulants; Z86.711 Personal history of pulmonary embolism; E66.9 Obesity, unspecified; J45.909 Unspecified asthma, uncomplicated; I71.22 Aneurysm of the aortic arch, without rupture; J98.59 Other diseases of mediastinum, not elsewhere classified; K50.90 Crohn's disease, unspecified, without complications; K76.9 Liver disease, unspecified; I31.39 Other pericardial effusion (noninflammatory); Z98.890 Other specified postprocedural states
CPT/HCPCS: 36415; 71275; 80053; 83605; 83735; 83880; 84484; 85025; 85027; 85379; 85610; 85730; 87631; 93005; 93306; 93970; 94761; 99284; 99285; A9153; A9270; J1644; J2405; Q9967

== ENCOUNTER 2023-09-30 07:01 | Outpatient (CLI) | payer BC, SELFPAY ==
--- OUTSIDE RECORDS SUMMARY | 2023-09-30 07:03 | XMS_ITS | Clinical Summary ---
Author Name Unknown Organization [facility] Address [address] [place] [id number] Care Team Providers Care Architectural Drafting Instructor Name Role Phone Sasha, Neto Shashank Primary Care Provider Allergies Active Allergy Reactions Criticality Noted Date Comments Sulfa Antibiotics Anaphylaxis,Swelling High 12/15/19 Medications Medication Sig Dispensed Refills Start Date End Date Status omeprazole 20 MG tablet Take 20 mg by mouth daily Active fluticasone (FLONASE) 50 MCG/ACT nasal spray [place] 1 spray into both nostrils daily Active multivitamin w/minerals (MULTI-VITAMIN) tablet Take 1 tablet by mouth daily Active vitamin C (ASCORBIC ACID) 1000 MG TABS Take 1,000 mg by mouth daily Active Cholecalciferol (VITAMIN D-3) 1000 units CAPS Take 1 tablet by mouth daily Active INFLIXIMAB-ABDA IV Every 8 weeks, last infusion November 30 Active Active Problems No known active problems [...] this topic Medical Devices Implanted Type Area Software Recruiter Device Identifier Shelf Expiration Date Model / Serial / Lot Stent Ureteral Polaris Ultra [id number] Implanted:Qty: 1 on 12/18/2018 by Cuco Rapp MD at [facility] Stent Right: Ureter [employer] 07/19/2021 [id number] / / [id number] Procedures Procedure Name Priority Date/Time Associated Diagnosis Comments COMPREHENSIVE METABOLIC PANEL STAT 01/11/2020 2:48 AM CDT from Last 3 Months or Most Recently Relevant to Health Maintenance Results * (ABNORMAL) Comprehensive metabolic panel (01/11/2020 2:48 AM CDT) Sodium 140 133 - 144 mmol/L 01/11/2020 3:49 AM [facility] Potassium 3.7 3.4 - 5.3 mmol/L 01/11/2020 3:49 AM [facility] Comment:Specimen slightly he molyzed, potassium may be falsely elevated Chloride 109 94 - 109 mmol/L 01/11/2020 3:49 AM [facility] Carbon Dioxide 27 20 - 32 mmol/L 01/11/2020 3:49 AM [facility] Anion Gap 4 3 - 14 mmol/L 01/11/2020 3:49 AM [facility] Glucose 132(H) 70 - 99 mg/dL 01/11/2020 3:49 AM [facility] Urea Nitrogen 14 7 - 30 mg/dL 01/11/2020 3:49 AM [facility] Creatinine 1.02 0.66 - 1.25 mg/dL 01/11/2020 3:49 AM [facility] GFR Estimate 82 >60 mL/min/{1. 73_m2} 01/11/2020 3:49 AM [facility] Comment: Non GFR Calc Starting 05/19/2018, serum creatinine based estimated GFR (eGFR) will be calculated using the Chronic Kidney Disease Epidemiology Collaboration (CKD-EPI) equation. GFR Estimate If Black >90 >60 mL/min/{1. 73_m2} 01/11/2020 3:49 AM [facility] Comment: GFR Calc Starting 05/19/2018, serum creatinine based estimated GFR (eGFR) will be calculated using the Chronic Kidney Disease Epidemiology Collaboration (CKD-EPI) equation. Calcium 8.6 8.5 - 10.1 mg/dL 01/11/2020 3:49 AM [facility] Bilirubin Total 0.7 0.2 - 1.3 mg/dL 01/11/2020 3:49 AM [facility] Albumin 3.5 3.4 - 5.0 g/dL 01/11/2020 3:49 AM [facility] Protein Total 7.4 6.8 - 8.8 g/dL 01/11/2020 3:49 AM [facility] Alkaline Phosphatase 66 40 - 150 U/L 01/11/2020 3:49 AM [facility] ALT 35 0 - 70 U/L 01/11/2020 3:49 AM [facility] AST 16 0 - 45 U/L 01/11/2020 3:49 AM [facility] Comment: Specimen is hemolyzed which can falsely elevate AST. Analysis of a non-hemolyzed specimen may result in a lower value. Blood specimen (specimen) 01/11/2020 2:48 AM CDT 01/11/2020 3:01 AM CDT Eric Jordan MD LAB - BLOOD ORDERABL ES [facility] [address] [id number], [facility] [phone] from Last 3 Months or Most Recently Relevant to Health Maintenance Care Teams Architectural Drafting Instructor Relationship Specialty Start Date End Date Neto Baez [address] [address] PCP - General Family Practice 01/11/20
--- OUTSIDE RECORDS SUMMARY | 2023-09-30 07:04 | XMS_ITS | Encounter Summary ---
Author Name Unknown Organization [facility] Address [address] [place] [id number] Care Team Providers Care [place] Attorney Name Role Phone Neto Baez Primary Care Provider + [phone] Timo Muniz MD Unavailable [phone] Encounter Details Date Type Department Care [...] documented as of this encounter Care Teams [place] Attorney Relationship Specialty Start Date End Date Neto Baez [address] [address] PCP - General Family Practice 01/11/20 Timo Muniz MD [address] [place] [id number] Assigned Surgical Provider 07/02/20 documented as of this encounter
--- OUTSIDE RECORDS SUMMARY | 2023-09-30 07:04 | XMS_ITS | Encounter Summary ---
Author Name Unknown Organization [facility] Address [address] [place] [address] Care Team Providers Care Mba Intern Name Role Phone Neto Baez Primary Care Provider + [phone] Timo Muniz MD Unavailable [phone] Encounter Details Date Type Department Care [...] documented as of this encounter Care Teams Mba Intern Relationship Specialty Start Date End Date Neto Baez [address] [address] PCP - General Family Practice 01/11/20 Timo Muniz MD [address] [place] [id number] Assigned Surgical Provider 07/02/20 documented as of this encounter
--- OUTSIDE RECORDS SUMMARY | 2023-09-30 07:04 | XMS_ITS | Encounter Summary ---
Author Name Unknown Organization [facility] Address [address] [place] [address]. [place] [address] Care Team Providers Care Radiographic Technologist Name Role Phone Neto Baez Primary Care Provider + [phone] Timo Muniz MD Unavailable [phone] Encounter Details Date Type Department Care Team (Late st Contact Info) Description 01/25/2021 [facility] Medical Advice [facility] [address] [place] [address] Cuco Rapp MD [phone] [id number] Social History Tobacco Use Types Packs/Day Years [...] documented as of this encounter Care Teams Radiographic Technologist Relationship Specialty Start Date End Date Neto Baez [address] [address] PCP - General Family Practice 01/11/20 Timo Muniz MD [address] [place] [id number] Assigned Surgical Provider 07/02/20 documented as of this encounter
--- OUTSIDE RECORDS SUMMARY | 2023-09-30 07:04 | XMS_ITS | Clinical Summary ---
Author Name Unknown Organization [employer] [facility] Address [place], [place] [address] Care Team Providers Care Border Inspector Name Role Phone Emery Law MD Unavailable [phone] Pcp, No Primary Care Provider Unavailabl e [...] inFLIXimab (REMICADE) 100 mg injection Inject intravenous. 11/05/2016 Active ascorbic acid, vitamin C, (VITAMIN [...] EVERY DAY BEFORE A MEAL 90 capsule 02/24/2019 Active fluticasone (50 mcg per actuation) [...] asthma 10/09/2006 Allergic rhinitis, cause unspecified 10/09/2006 Encounters Date Type Department Care Team Description 07/10/2023 4:00 PM PROGRAM CONTROL ANALYST Ancillary Procedure [facility] [address] [place] [address] from Last 3 Months Immunizations Name Administration Dates Next Due AMB [...] Comments Blood Pressure 114/80 07/13/2018 2:02 PM PROGRAM CONTROL ANALYST Pulse 94 07/13/2018 2:02 PM PROGRAM CONTROL ANALYST Temperature 37 ??C (98.6 ??F) 07/13/2018 2:02 PM PROGRAM CONTROL ANALYST Respiratory Rate 18 07/13/2018 2:02 PM PROGRAM CONTROL ANALYST Oxygen Saturation 97% 07/13/2018 2:02 PM PROGRAM CONTROL ANALYST Inhaled Oxygen Concentration - - Weight 114.3 kg (252 lb) 07/13/2018 2:02 PM PROGRAM CONTROL ANALYST Height 181.3 cm (5' 11.38) 05/29/2018 9:[address] Body Mass Index 34.78 05/29/2018 9:14 AM PROGRAM CONTROL ANALYST Plan of Treatment Upcoming Encounters Date Type Department Care Team (Late st Contact Info) Description 10/13/2023 8:30 AM CDT Office Visit [facility] [address] [place] [address] Mac Avila A, OD [address] [place] [address] Health Maintenance Due Date Last Done Comments [...] series ( season) 2023 02/19/2022, 09/08/2020, 08/18/2020 Lipids for age 45-75 02/04/2023 02/04/2018, 01/06/2017, 12/14/2015, Additional history exists Influenza for age 50-64 02/01/2024 03/16/20 18, 03/07/2017, 02/21/2014, Additional history exists Colonoscopy through age 75 07/04/203107/04, 06/09/2019, 06/26/2017, Additional history exists Tdap Completed 12/14/2009 Hepatitis C screening for age 18-79 Completed 09/02/2013 Pneumococcal series for age 6-64 Aged Out 09/25/2015, 04/04/1999 No longer eligibl e based on patient's age to complete this topic Procedures Procedure Name Priority Date/Time Associated Diagnosis Comments ECHO TTE COMPLETE WO CONTRAST Routine 07/10/2023 9:01 AM PROGRAM CONTROL ANALYST Pericardial effusion SCAN-COLONOSCOPY 07/04/2021 7:30 AM PROGRAM CONTROL ANALYST LIPID PANEL Routine 02/04/2018 2:50 PM CDT Lipid screening ANTI HCV Routine 09/02/2013 9:15 AM CDT Need for hepatitis C screening test from Last 3 Months or Most Recently Relevant to Health Maintenance Results * ECHO TTE COMPLETE WO CONTRAST (07/10/2023 9:01 AM PROGRAM CONTROL ANALYST) AORTIC VALVE MEAN PG 4 mmHg EJECTION FRACTION 72 % PEAK TR VELOCITY 2.4 m/s LVEDD 2.8 cm EJECTION FRACTION 60 - 65% Anatomical Region Laterality Modality Ultrasound 07/10/2023 8:21 AM PROGRAM CONTROL ANALYST Narrative 07/10/2023 10:19 AM PROGRAM CONTROL ANALYST ECHOCARDIOGRAM AGUSTINA OLSONRISAChristine ?Accession#: ?? [id number] : ?1965 58 years Study Date: ?? 07/10/2023 8:21:41 AM Gender: M ? BP: ? 138/96 mmHg Height: 183.00 cm ? BSA: ?2.30 m? ? ? Weight: 109.00 kg ? Tech: ? MJJ ?Referring MD: FAWN NOYOLA Site: ? [facility] Reading Location: [facility] Patient Location: Inpatient. Procedure: 2D, Color Doppler and Spectral Doppler. Indication for study: Pericardial effusion Cardiac Rhythm: Regular.Study quality: Fair. Final Impressions: 1. Trace pericardial effusion mostly posterior to RA. 2. LVEF estimate 60-65%. Normal LV size and wall thickness. 3. Normal RV size and global systolic function. 4. No significant valvular abnormalities. 5. Normal PA systolic and RA pressure estimates. 6. Mildly dilated aortic root [4.0 cm] and ascending aorta [4.3 cm]. Trileaflet aortic valve. Chamber Sizes and Function Left atrial size is normal. Right ventricular cavity size is normal, global systolic RV function is normal. RV wall thickness is normal. The right atrium is normal. Right atrial area is 12 cm? ? ?. The pulmonary artery is not well visualized. The sinus of Valsalva is dilated. The ascending aorta is dilated. Valves, RV Pressures and Diastolic Function The aortic valve is normal in structure and trileaflet, no stenosis and trivial regurgitation. The mitral valve is normal in structure, no mitral regurgitation. Indeterminate pattern of LV diastolic filling. The tricuspid valve is normal in structure. Tricuspid regurgitation is trace regurgitation. The tricuspid regurgitant velocity is 2.4 m/s, the estimated right ventricular systolic pressure is 22 mmHg plus right atrial pressure. There is normal estimated pulmonary pressure by tricuspid regurgitation velocity and right atrial pressure. The pulmonic valve is not well visualized. Trace pulmonary regurgitation. Masses, Effusion, Shunts There is trivial pericardial effusion. There is a significant pericardial fat pad present. The inferior vena cava is normal sized, respiratory size variation greater than 50%. No left to right shunting was detected by limited color flow Doppler interrogation of the interatrial septum. MEASUREMENTS AND CALCULATIONS 2-D Measurements and LV Function: LVID (d) 2.8 cm LV FS% (2D) ?? 36 % LVID (s) 1.8 cm LVOT diameter 2.0 cm IVS (d) ??1.0 cm HR ?85 bpm LVPW (d) 1.6 cm LA Vol index ??23 ml/m2 Ao Sinus 4.0 cm RA area ? 12 cm? ? ? Asc Ao ?? 4.3 cm LA ? 2.8 cm Diastology: Mitral ?Tissue Doppler ?Pulmonary veins E Peak 0.8 m/s ??e', Septum ? 0.06 m/s Pulm s ?72.2 cm/s A Peak 0.7 m/s ??e', Lateral ?0.11 m/s Pulm d ?38.3 cm/s E/A ?1.0 ?E/e' Average ?? 8.88 ? Pulm s/d ratio ??1.89 DT ? 270 msec Aortic Valve: Vmax ? 1.3 m/s ??LEYLA (V) ?? 2.56 cm? AI P 1/2 436 msec VTI ?0.22 m ?? LEYLA (I) ?? 2.86 cm? ? ? LVOT V max 1.1 m/s ??Max PG ?7 mmHg LVOT VTI ?? 0.20 m ?? Mean PG ?? 4 mmHg SV ? 63 ml ?Dim Index 0.91 SV index ?? 28 ml/m? ? ? CO ?5.4 l/min ?CI ?2.3 l/min/m? ? ? Mitral Valve: MVA ?2.8 cm? ? ? MV P 1/2 78 msec Tricuspid Valve and estimated PA pressures: TR Vmax 2.4 m/s TAPSE 2.0 cm TR maxG 22 mmHg . This study was interpreted by an [facility] accredited facility. CC: HIM (med records) [facility], Med/Surg - IP [facility]. ??Final ?? Procedure Note Wyatt Rivera MD - 07/10/2023 ECHOCARDIOGRAM AGUSTINA GUZMAN : 1965 58 years Study Date: 07/10/2023 8:21:41 AM Gender: M BP: 138/96 mmHg Height: 183.00 cm BSA: 2.30 m? ? ? Weight: 109.00 kg Tech: REGINALD Referring MD: FAWN NOYOLA Site: [facility] Reading Location: [facility] Patient Location: Inpatient. Procedure: 2D, Color Doppler and Spectral Doppler. Indication for study: Pericardial effusion Cardiac Rhythm: Regular.Study quality: Fair. Final Impressions: 1. Trace pericardial effusion mostly posterior to RA. 2. LVEF estimate 60-65%. Normal LV size and wall thickness. 3. Normal RV size and global systolic function. 4. No significant valvular abnormalities. 5. Normal PA systolic and RA pressure estimates. 6. Mildly dilated aortic root [4.0 cm] and ascending aorta [4.3 cm].Trileaflet aortic valve. Chamber Sizes and Function Left atrial size is normal. Right ventricular cavity size is normal,global systolic RV function is normal. RV wall thickness is normal. Theright atrium is normal. Right atrial area is 12 cm? ? ?. The pulmonary arteryis not well visualized. The sinus of Valsalva is dilated. The ascendingaorta is dilated. Valves, RV Pressures and Diastolic Function The aortic valve is normal in structure and trileaflet, no stenosis andtrivial regurgitation. The mitral valve is normal in structure, no mitralregurgitation. Indeterminate pattern of LV diastolic filling. Thetricuspid valve is normal in structure. Tricuspid regurgitation is traceregurgitation. The tricuspid regurgitant velocity is 2.4 m/s, theestimated right ventricular systolic pressure is 22 mmHg plus right atrialpressure. There is normal estimated pulmonary pressure by tricuspidregurgitation velocity and right atrial pressure. The pulmonic valve isnot well visualized. Trace pulmonary regurgitation. Masses, Effusion, Shunts There is trivial pericardial effusion. There is a significant pericardialfat pad present. The inferior vena cava is normal sized, respiratory sizevariation greater than 50%. No left to right shunting was detected bylimited color flow Doppler interrogation of the interatrial septum. MEASUREMENTS AND CALCULATIONS 2-D Measurements and LV Function: LVID (d) 2.8 cm LV FS% (2D) 36 % LVID (s) 1.8 cm LVOT diameter 2.0 cm IVS (d) 1.0 cm HR 85 bpm LVPW (d) 1.6 cm LA Vol index 23 ml/m2 Ao Sinus 4.0 cm RA area 12 cm? ? ? Asc Ao 4.3 cm LA 2.8 cm Diastology: Mitral Tissue Doppler Pulmonary veins E Peak 0.8 m/s e', Septum 0.06 m/s Pulm s 72.2 cm/s A Peak 0.7 m/s e', Lateral 0.11 m/s Pulm d 38.3 cm/s E/A 1.0 E/e' Average 8.88 Pulm s/d ratio 1.89 DT 270 msec Aortic Valve: Vmax 1.3 m/s LEYLA (V) 2.56 cm? ? ? AI P 1/2 436 msec VTI 0.22 m LEYLA (I) 2.86 cm? ? ? LVOT V max 1.1 m/s Max PG 7 mmHg LVOT VTI 0.20 m Mean PG 4 mmHg SV 63 ml Dim Index 0.91 SV index 28 ml/m? ? ? CO 5.4 l/min CI 2.3 l/min/m? ? ? Mitral Valve: MVA 2.8 cm? ? ? MV P 1/2 78 msec Tricuspid Valve and estimated PA pressures: TR Vmax 2.4 m/s TAPSE 2.0 cm TR maxG 22 mmHg . This study was interpreted by an [facility] accredited facility. CC: HIM (med records) [facility], Med/Surg - IP [facility]. Final Fawn Noyola MD ECHO ORD * SCAN-COLONOSCOPY (07/04/2021 7:30 AM PROGRAM CONTROL ANALYST) Narrative Procedure Note Emery Law MD - 07/04/2021 6:35 AM CST [facility] [address] [place] [address], [address], [place] [address] Patient Name: Agustina Guzman Gender: Male Exam Date: 07/04/2021 Visit Number: [id number] Age: 56 Years Date of : 1965 Attending MD: Emery Law MD Medical Record#: [id number] Procedure: Colonoscopy Indications: Crohn's disease Surveillance Referring MD: Referral Self Primary MD: Neto Baez MD Medications: Admitting Medications: 0.9% Normal Saline at [facility] Intra Procedure Medications: Patient received monitored anesthesia care. Complications: No immediate complications Procedure: An examination of the heart and lungs was performed and found to be withinacceptable limits. . The patient was therefore deemed a reasonablecandidate for endoscopy and sedation. The risks and benefits of the procedure were explained to the patient.After obtaining informed consent, the patient received monitoredanesthesia care and I passed the scope without difficulty via the rectum to the cecum. The appendiceal orificeand ic valve were identified. The scope was retroflexed during theexamination The quality of the prep was excellent (Miralax/Gatorade/2tablets Bisacodyl/Magnesium Citrate). This was a complete examination throughout the entire colon. Findings: Normal finding. Location - ileum. Normal finding. Location - entire colon. Biopsy taken. Maneuver -dysplasia surveillance biopsies from right colon, left colon and rectum. Polyp location: rectum. Quantity: 2. Size: 2-3 mm. Polyp shape: flatlesion. Maneuver: polypectomy was performed with a cold biopsy forceps. Removal: complete. Retrieval: complete. Bleeding:minimal/oozing. Hemorrhoids. Internal and external hemorrhoids without bleeding. Impression: Crohn's disease of large intestine without complications Hemorrhoids, unspecified hemorrhoid type Preliminary Plan: The patient and their physician will receive a copy of the pathologyreport as well as pathology-based recommendations for future screening orsurveillance. Return to your primary care provider as needed. Pathology Results: A: COLON, RIGHT RANDOM, BIOPSY: 1. Normal colonic mucosa 2. Negative for microscopic, active, and chronic colitis 3. Negative for dysplasia B: COLON, LEFT RANDOM, BIOPSY: 1. Normal colonic mucosa 2. Negative for microscopic, active, and chronic colitis 3. Negative for dysplasia C: RECTUM, BIOPSY: 1. Normal colonic mucosa 2. Negative for microscopic, active, and chronic colitis 3. Negative for dysplasia D: RECTUM, POLYPS: 1. Hyperplastic polyps (2) COMMENTS Specimen D was seen in consultation with Dr. Zaldivar. MICROSCOPIC A: Performed B: Performed C: Performed D: Performed Electronically signed by: Yuriy [place] [address] Orders Instruction(s)/Education: Instruction/Education Timeframe Assessment Colon Polyps K50.10 Final Plan: Repeat colonoscopy in 2 years. We will attempt to contact you at appropriate intervals via U.S. mail. Wemay not be able to find you or contact you at that time, therefore youshould know that the responsibility for following our recommendation restswith you. If you don't hear from us at the time your procedure is due,please contact our office to schedule an appointment. If your contactinformation should change, please contact our office so that we can updateyour record. _Electronically signed by: Emery Law MD 07/04/2021 cc: Neto Baez MD Emery Law MD OTHER * (ABNORMAL) LIPID PANEL (02/04/2018 2:50 PM CDT) CHOLESTEROL,TOTAL 216(H) 100 - 199 mg/dL 02/04/2018 8:01 PM CDT [facility] TRIGLYCERIDES 349(H) <150 mg/dL 02/04/2018 8:01 PM CDT [facility] HDL CHOLESTEROL 49 >40 mg/dL 8 8:01 PM CDT [facility] NON-HDL CHOLESTEROL 167(H) <145 mg/dl 02/04/2018 8:01 PM CDT [facility] CHOL/HDL RATIO 4.41 <4.50 02/04/2018 8:01 PM CDT [facility] LDL CHOLESTEROL 97 <=130 mg/dL 02/04/2018 8:01 PM CDT [facility] PROVIDER ORDERED STATUS RANDOM 02/04/2018 8:01 PM CDT [facility] Blood BLOOD SPECIMEN / Unknown Venipuncture / Unknown 02/04/2018 2:50 PM CDT 02/04/2018 2:50 PM CDT Juan Luis Olivas DO [facility] 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 PCP - General 02/22/20 Emery Law MD [address] [facility] [address] [place] [address] Gastroenterology 09/02/13
--- OUTSIDE RECORDS SUMMARY | 2023-09-30 07:04 | XMS_ITS | Referral Summary ---
Author Name Unknown Organization [employer] Address [address] [place] [address] Care Team Providers Care Napkin Band Wrapper Name Role Phone Sasha, Neto Encarnacion Primary Care Provider Allergies Active Allergy Reactions Criticality Noted Date Comments Sulfa Antibiotics Anaphylaxis,Swelling High 12/15/19 Medications Medication Sig Dispensed Refills Start Date End Date Status omeprazole 20 MG tablet Take 20 mg by mouth daily Active fluticasone (FLONASE) 50 MCG/ACT nasal spray [place] 1 spray into both nostrils daily Active [...] on file Medical Devices Implanted Type Area Pot Tender Device Identifier Shelf Expiration Date Model / Serial / Lot Stent Ureteral Polaris Ultra [id number] Implanted:Qty: 1 on 12/18/2018 by Cuco Rapp MD at [facility] Stent Right: Ureter [employer] 07/19/2021 [id number] / / [id number] Procedures Procedure Name Priority Date/Time Associated Diagnosis Comments COMPREHENSIVE METABOLIC PANEL STAT 01/11/2020 2:48 AM CDT from Last 3 Months or Most Recently Relevant to Health Maintenance Results * (ABNORMAL) Comprehensive metabolic panel (01/11/2020 2:48 AM CDT) Sodium 140 133 - 144 mmol/L 01/11/2020 3:49 AM CDT [facility] Potassium 3.7 3.4 - 5.3 mmol/L 01/11/2020 3:49 AM T [facility] Comment:Specimen slightly he molyzed, potassium may be falsely elevated Chloride 109 94 - 109 mmol/L 01/11/2020 3:49 AM CDT [facility] Carbon Dioxide 27 20 - 32 mmol/L 01/11/2020 3:49 AM T [facility] Anion Gap 4 3 - 14 mmol/L 01/11/2020 3:49 AM T [facility] Glucose 132(H) 70 - 99 mg/dL 01/11/2020 3:49 AM T [facility] Urea Nitrogen 14 7 - 30 mg/dL 01/11/2020 3:49 AM [facility] Creatinine 1.02 0.66 - 1.25 mg/dL 01/11/2020 3:49 AM [facility] GFR Estimate 82 >60 mL/min/{1. 73_m2} 01/11/2020 3:49 AM [facility] Comment: Non GFR Calc Starting 05/19/2018, serum creatinine based estimated GFR (eGFR) will be calculated using the Chronic Kidney Disease Epidemiology Collaboration (CKD-EPI) equation. GFR Estimate If Black >90 >60 mL/min/{1. 73_m2} 01/11/2020 3:49 AM [facility] Comment: GFR Calc Starting 05/19/2018, serum creatinine based estimated GFR (eGFR) will be calculated using the Chronic Kidney Disease Epidemiology Collaboration (CKD-EPI) equation. Calcium 8.6 8.5 - 10.1 mg/dL 01/11/2020 3:49 AM [facility] Bilirubin Total 0.7 0.2 - 1.3 mg/dL 01/11/2020 3:49 AM [facility] Albumin 3.5 3.4 - 5.0 g/dL 01/11/2020 3:49 AM [facility] Protein Total 7.4 6.8 - 8.8 g/dL 01/11/2020 3:49 AM [facility] Alkaline Phosphatase 66 40 - 150 U/L 01/11/2020 3:49 AM [facility] ALT 35 0 - 70 U/L 01/11/2020 3:49 AM [facility] AST 16 0 - 45 U/L 01/11/2020 3:49 AM [facility] Comment: Specimen is hemolyzed which can falsely elevate AST. Analysis of a non-hemolyzed specimen may result in a lower value. Blood specimen (specimen) 01/11/2020 2:48 AM CDT 01/11/2020 3:01 AM CDT Eric Jordan MD LAB - BLOOD ORDERABL ES [facility] [address] [address], [facility] [phone] from Last 3 Months or Most Recently Relevant to Health Maintenance Care Teams Napkin Band Wrapper Relationship Specialty Start Date End Date Neto Baez [address] [address] PCP - General Family Practice 01/11/20
--- OUTSIDE RECORDS SUMMARY | 2023-09-30 07:04 | XMS_ITS | Continuity of Care Document ---
Author Name Unknown Organization [facility] Address [address] [address] [place] [address] Phone Care Team Providers Care Nutrition Internship Name Role Phone Yosef Acevedo MD, Juve Das Allergies, Adverse Reactions, Alerts Substance Reaction Status Criticality Sulfa (Sulfonamide Antibiotics) unknown Active No Information WARNIN allergy(ies) could not be collected because the type is not supported. Please contact the source practice for further details. Medications Medication Instructions Dosage Effective Dates (start - stop) Status Comments Remicade 100 mg intravenous solution Administer Remicade 5mg/kg every eight weeks, infuse by IV route - Active ELIQUIS (unknown strength) Not Available - Active Vitamin D3 50 mcg (2,000 unit) capsule take 1 by Oral route every day 1 - Active Flonase 50 mcg/actuation nasal spray,suspension inhale 1 spray by intranasal route every day in each nostril everyday - Active multivitamin tablet take 1 tablet by oral route every day 1 tablet - Active Vitamin C 1,000 mg tablet take one tablet orally everyday - Active omeprazole 20 mg capsule,delayed release take 1 capsule (20MG) by ORAL route every day 20 MG - Active Procedures Procedure Date Remicade Per 10 Mg IV Infusion Up To 1 Hour Remicade Per 10 Mg IV Infusion Up To 1 Hour Remicade Per 10 Mg Remicade Per 10 Mg IV Infusion Up To 1 Hour Remicade Per 10 Mg Remicade Per 10 Mg IV Infusion Up To 1 Hour Remicade Per 10 Mg Remicade Per 10 Mg IV Infusion Up To 1 Hour Remicade Per 10 Mg Remicade Per 10 Mg IV Infusion Up To 1 Hour Established Level 4 Remicade Per 10 Mg Remicade Per 10 Mg IV Infusion Up To 1 Hour Remicade Per 10 Mg Remicade Per 10 Mg IV Infusion Up To 1 Hour Remicade Per 10 Mg Remicade Per 10 Mg IV Infusion Up To 1 Hour Remicade Per 10 Mg Remicade Per 10 Mg IV Infusion Up To 1 Hour IV Infusion Up To 1 Hour Remicade Per 10 Mg Remicade Per 10 Mg IV Infusion Up To 1 Hour Remicade Per 10 Mg IV Infusion Up To 1 Hour Remicade Per 10 Mg Remicade Per 10 Mg Established Level 4 IV Infusion Up To 1 Hour Remicade Per 10 Mg IV Infusion Up To 1 Hour Remicade Per 10 Mg Colonoscopy Flex; W/bx 1/mx Level Iv-surg Path Gross/micro IV Infusion Up To 1 Hour Remicade Per 10 Mg IV Infusion Up To 1 Hour Remicade Per 10 Mg Remicade Per 10 Mg IV Infusion Up To 1 Hour Remicade Per 10 Mg IV Infusion Up To 1 Hour Remicade Per 10 Mg Remicade Per 10 Mg Routine Serum Collection Bld Ct; Hg/pltlt Ct Auto/compl Hepatic Function Panel Vitamin D; 25 Hydroxy IV Infusion Up To 1 Hour Remicade Per 10 Mg Established Level 4 IV Infusion Up To 1 Hour Remicade Per 10 Mg IV Infusion Up To 1 Hour Remicade Per 10 Mg Routine Serum Collection Hepatic Function Panel Bld Ct; Hg/pltlt Ct Auto/compl IV Infusion Up To 1 Hour Remicade Per 10 Mg Remicade Per 10 Mg IV Infusion Up To 1 Hour Remicade Per 10 Mg IV Infusion Up To 1 Hour Remicade Per 10 Mg IV Infusion Up To 1 Hour Remicade Per 10 Mg IV Infusion Up To 1 Hour Remicade Per 10 Mg Routine Serum Collection Hepatic Function Panel Bld Ct; Hg/pltlt Ct Auto/compl Offic/outpt E&m Estab Mod-hi 2 20 IV Infusion Up To 1 Hour Remicade Per 10 Mg Colonoscopy Flex; W/bx 1/mx Level Iv-surg Path Gross/micro Javier-08-20 20 IV Infusion Up To 1 Hour Remicade Per 10 Mg IV Infusion Up To 1 Hour Remicade Per 10 Mg Routine Serum Collection IV Infusion Up To 1 Hour Remicade Per 10 Mg IV Infusion Up To 1 Hour Remicade Per 10 Mg IV Infusion Up To 1 Hour Remicade Per 10 Mg Routine Serum Collection Bld Ct; Hg/pltlt Ct Auto/compl 19 Hepatic Function Panel Vitamin D; 25 Hydroxy IV Infusion Up To 1 Hour Remicade Per 10 Mg Offic/outpt E&m Estab Low-mod 9 IV Infusion Up To 1 Hour Each Additional Hour Remicade Per 10 Mg IV Infusion Up To 1 Hour Each Additional Hour Remicade Per 10 Mg Routine Serum Collection Hepatic Function Panel Bld Ct; Hg/pltlt Ct Auto/compl 18 IV Infusion Up To 1 Hour Each Additional Hour Remicade Per 10 Mg Remicade Per 10 Mg IV Infusion Up To 1 Hour Each Additional Hour IV Infusion Up To 1 Hour Each Additional Hour Remicade Per 10 Mg Routine Serum Collection Hepatic Function Panel Bld Ct; Hg/pltlt Ct Auto/compl 18 IV Infusion Up To 1 Hour Each Additional Hour Remicade Per 10 Mg Offic/outpt E&m Estab Low-mod 8 IV Infusion Up To 1 Hour Each Additional Hour Remicade Per 10 Mg Diagnostic colonoscopy Colonoscopy Flex; W/remov Les- 18 Level Iv-surg Path Gross/micro 18 IV Infusion Up To 1 Hour Each Additional Hour Remicade Per 10 Mg Routine Serum Collection Hepatic Function Panel Bld Ct; Hg/pltlt Ct Auto/compl 17 IV Infusion Up To 1 Hour Each Additional Hour Remicade Per 10 Mg Offic/outpt E&m Estab Low-mod 7 IV Infusion Up To 1 Hour Each Additional Hour Remicade Per 10 Mg IV Infusion Up To 1 Hour Each Additional Hour Remicade Per 10 Mg IV Infusion Up To 1 Hour Each Additional Hour Remicade Per 10 Mg Offic/outpt E&m Estab Mod-hi 4 17 Routine Serum Collection Cyanocobalamin C-reactive Prot Hepatic Function Panel Bld Ct; Hg/pltlt Ct Auto/compl 17 Colonoscopy Flex; W/bx 1/mx Level Iv-surg Path Gross/micro 17 Immunocytochemistry, Each Antibody Offic/outpt E&m Estab Low-mod 7 Routine Serum Collection Immuniz Admin; 1/combo Vacc/to 17 Hepatitis A Vaccine Adult Dose 17 Offic/outpt E&m Estab Mod-hi 2 16 Routine Serum Collection Immuniz Admin; 1/combo Vacc/to 16 [id number] Vaccine Immuniz Admin; 2/> Sing/comb V 16 Hepatitis A Vaccine Adult Dose [address]; Hg/pltlt Ct Auto/compl 16 Hepatic Function Panel C-reactive Prot Ag-immunoassay; Hep B Surface 6 Hepatitis C Antibody; Vitamin D; 25 Hydroxy Hepatitis B Surface Antibody Hep B Core Antibody Colonoscopy Flex; W/bx 1/mx Level Iv-surg Path Gross/micro 16 Offic/outpt E&m Estab Low-mod 6 Offic/outpt E&m Estab Mod-hi 2 13 Routine Serum Collection Immuniz Admin; 1/combo Vacc/to 13 Pneumococcal Polysacch Vac-gini [address]; Hg/pltlt Ct Auto/compl 13 Hepatitis A Antibody; Igg & Ig 13 Cyanocobalamin Hepatic Function Panel C-reactive Prot Iron Iron Binding Capacity Ferritin Colonoscopy Flex; W/bx 1/mx Level Iv-surg Path Gross/micro 12 Ugi Endo; W/bx /mx Advance Directives Directive Yes / No Effective Date File Name No Information Encounters Encounter Description Practice Location Reason(s) For Visit Diagnoses Date Provider Providers Copied on Encounter [facility], [address] [address], [place], [place], [id number], [place] tel:[phone] [facility] No Information Aug-0 4 Yosef An. [address], [id number], [place]. tel:[phone] [facility], [address] [address], [place], [place], [id number], [place] tel:[phone] [facility] Crohn's disease of large intestine without complications Aug-0 4 Kelsey Holt. [address] [facility], [place] [address], [place], [place], [id number], [place]. tel:[phone] Referring Provider: Referral Self, USE FOR SELF REFERRALS. [facility], [address] [address], [place], [address], [place] tel:[phone] [facility] Crohn's disease of large intestine without complications 4 Ani Land. [address] [facility], [facility] [address], [place], [id number], [place]. tel:[phone] [facility], [address] [address], [place], [address], [place] tel:[phone] [facility] Crohn's disease of large intestine without complications 4 Kelsey Holt. [address] [facility], [address], [id number], [place]. tel:[phone] Referring Provider: Referral Self, USE FOR SELF REFERRALS. [facility], [address] [address], [place], [address], [place] tel:[phone] [facility] Crohn's disease of large intestine without complications 4 Ani Land. [address] [facility], [facility] [address], [place], [address], [place]. tel:[phone] [facility], [address] [address], [place], [address], [place] tel:[phone] [facility] Crohn's disease of large intestine without complications 3 Kranthi Marchahim. [address] [facility], [facility] [address], [place], [address], [place]. tel:[phone] Referring Provider: Referral Self, USE FOR SELF REFERRALS. [facility], [address] [address], [place], [address], [place] tel:[phone] [facility] Crohn's disease of large intestine without complications 3 Ani Land. [address] [facility], [address], [id number], [place]. tel:[phone] [facility], [address] [address], [place], [address], [place] tel:[phone] [facility] Crohn's disease of large intestine without complications 3 Andrew Dixon. [address] [place] [address], [id number], [place]. tel:[phone] Referring Provider: Referral Self, USE FOR SELF REFERRALS. [facility], [address] [address], [place], [address], [place] tel:[phone] [facility] Crohn's disease of large intestine without complications 3 Ani Land. [address] [place] [address], [id number], [place]. tel:[phone] [facility], [address] [address], [place], [address], [place] tel:[phone] [facility] Crohn's disease of large intestine without complications 3 Lon Burt. [address] [place] [address], [id number], [place]. tel:[phone] Referring Provider: Referral Self, USE FOR SELF REFERRALS. [facility], [address] [address], [place], [address], [place] tel:[phone] [facility] Crohn's disease of large intestine without complications 3 Ani Land. [address] [place] [address], [id number], [place]. tel:[phone] [facility], [address] [address], [place], [address], [place] tel:[phone] [facility] Crohn's disease of large intestine without complications 3 Yesi Lorenzo. [address] [place] [address], [address], [place]. tel:[phone] Referring Provider: Referral Self, USE FOR SELF REFERRALS. [facility], [address] [address], [place], [address], [place] tel:[phone] [facility] Crohn's disease of large intestine without complication 3 Ani Land. [address] [facility], [address], [id number], [place]. tel:[phone] Established Level 4 [facility], [address] [address], [place], [address], [place] tel:[phone] [facility] GI Symptoms or Concerns (chief complaint) Previous History Review (chief complaint) Crohn's disease of large intestine without complication 3 Ani Land. [address] [facility], [address], [id number], [place]. tel:[phone] Referring Provider: Referral Self, USE FOR SELF REFERRALS. [facility], [address] [address], [place], [address], [place] tel:[phone] [facility] Crohn's disease of large intestine without complications 3 Lon Burt. [address] [facility], [address], [id number], [place]. tel:[phone] Referring Provider: Referral Self, USE FOR SELF REFERRALS. [facility], [address] [address], [place], [address], [place] tel:[phone] [facility] Crohn's disease of large intestine without complications 3 Ani Land. [address] [facility], [address], [id number], [place]. tel:[phone] [facility], [address] [address], [place], [address], [place] tel:[phone] [facility] Crohn's disease of large intestine without complications 3 Kranthi Wilkins. [address] [facility], [address], [id number], [place]. tel:[phone] Referring Provider: Referral Self, USE FOR SELF REFERRALS. [facility], [address] [address], [place], [address], [place] tel:[phone] [facility] Crohn's disease of large intestine without complications 3 Ani Land. [address] [facility], [address], [id number], [place]. tel:[phone] [facility], [address] [address], [place], [address], [place] tel:[phone] [facility] Crohn's disease of large intestine without complications 3 Donovan Mcgovern. [address] [facility], [address], [id number], [place]. tel:[phone] Referring Provider: Referral Self, USE FOR SELF REFERRALS. [facility], [address] [address], [place], [address], [place] tel:[phone] [facility] Crohn's disease of large intestine without complications 2 Ani Land. [address], [id number], [place]. tel:[phone] [facility], [address] [address], [place], [address], [place] tel:[phone] [facility] Crohn's disease of large intestine without complications 2 Matteo Duque. [address] [facility], [address], [id number], [place]. tel:[phone] Referring Provider: Referral Self, USE FOR SELF REFERRALS. [facility], [address] [address], [place], [address], [place] tel:[phone] [facility] Crohn's disease of large intestine without complications 2 Ani Land. [address], [id number], [place]. tel:[phone] Referring Provider: Referral Self, USE FOR SELF REFERRALS. [facility], [address] [address], [place], [address], [place] tel:[phone] [facility] Crohn's disease of large intestine without complications 2 Ani Land. [address] [facility], [facility] [address], [place], [address], [place]. tel:[phone] [facility], [address] [address], [place], [address], [place] tel:[phone] [facility] Crohn's disease of large intestine without complications 2 Ronan Fernandez. [address] [facility], [address], [id number], [place]. tel:[phone] Referring Provider: Referral Self, USE FOR SELF REFERRALS. [facility], [address] [address], [place], [address], [place] tel:[phone] [facility] Crohn's disease of large intestine without complications 2 Andrew Dixon. [address] [facility], [address], [id number], [place]. tel:[phone] Referring Provider: Referral Self, USE FOR SELF REFERRALS. [facility], [address] [address], [place], [address], [place] tel:[phone] [facility] Crohn's disease of large intestine without complications 2 Nico Brito. [address] [facility], [address], [id number], [place]. tel:[phone] Referring Provider: Referral Self, USE FOR SELF REFERRALS. Established Level 4 [facility], [address] [address], [place], [address], [place] tel:[phone] [facility] GI Symptoms or Concerns (chief complaint) Crohn's disease of colon without complication 2 Ani Land. [address] [facility], [address], [id number], [place]. tel:[phone] Referring Provider: Referral Self, USE FOR SELF REFERRALS. [facility], [address] [address], [place], [address], [place] tel:[phone] [facility] Crohn's disease of large intestine without complications 0 2 Dami Paz. [address] [facility], [address], [id number], [place]. tel:[phone] Referring Provider: Referral Self, USE FOR SELF REFERRALS. [facility], [address] [address], [place], [address], [place] tel:[phone] Infusion [facility] Crohn's disease of large intestine without complications 2 2 Ain Land. [address] [facility], [address], [id number], [place]. tel:[phone] [facility], [address] [address], [place], [address], [place] tel:[phone] [facility] Crohn's disease of large intestine without complications Fe-0 2 Andrew Dixon. [address], [id number], [place]. tel:[phone] Referring Provider: Referral Self, USE FOR SELF REFERRALS. [facility], [address] [address], [place], [address], [place] tel:[phone] [facility] Crohn's disease of large intestine without complications Hemorrhoids, unspecified hemorrhoid typeEncounter for screening for malignant neoplasm of colonRectal polypPersonal history of colonic polypsCrohn's disease of large intestine without complications 0 2 Ani Land. [address], [id number], [place]. tel:[phone] Referring Provider: Referral Self, USE FOR SELF REFERRALS. [facility], [address] [address], [place], [address], [place] tel:[phone] [facility] Crohn's disease of large intestine without complications 1 Jones Ayoub. [address] [facility], [address], [id number], [place]. tel:[phone] Referring Provider: Referral Self, USE FOR SELF REFERRALS. [facility], [address] [address], [place], [address], [place] tel:[phone] [facility] Crohn's disease of large intestine without complications 1 Jones Ayoub. [address] [facility], [address], [id number], [place]. tel:[phone] Referring Provider: Referral Self, USE FOR SELF REFERRALS. [facility], [address] [address], [place], [address], [place] tel:[phone] [facility] No Information 1 Ani Land. [address] [place] [address], [address], [id number], [place]. tel:[phone] [facility], [address] [address], [place], [address], [place] tel:[phone] [facility] Crohn's disease of large intestine without complications 1 Jones Ayoub. [address] [facility], [address], [id number], [place]. tel:[phone] Referring Provider: Referral Self, USE FOR SELF REFERRALS. [facility], [address] [address], [place], [address], [place] tel:[phone] [facility] Crohn's disease of large intestine without complications 1 Tiera Fernandes. [address] [facility], [address], [id number], [place]. tel:[phone] Referring Provider: Referral Self, USE FOR SELF REFERRALS. [facility], [address] [address], [place], [address], [place] tel:[phone] [facility] Crohn's disease, unspecified, without complications Crohn's disease of large intestine without complications 1 Ani Land. [address] [facility], [facility] [address], [place], [id number], [place]. tel:[phone] Referring Provider: Referral Self, USE FOR SELF REFERRALS. [facility], [address] [address], [place], [address], [place] tel:[phone] [facility] Crohn's disease of large intestine without complications September-0 1 Donovan Mcgovern. [address] [facility], [address], [id number], [place]. tel:[phone] Referring Provider: Referral Self, USE FOR SELF REFERRALS. [facility], [address] [address], [place], [id number], [place] tel:[phone] [facility] Crohn's disease of colon without complication Apr-2 1 Ani Land. [address] [facility], [address], [id number], [place]. tel:[phone] Established Level 4 [facility], [address] [address], [place], [id number], [place] tel:[phone] [facility] GI Symptoms or Concerns (chief complaint) Crohn's disease of colon without complication Aug-0 1 Ani Land. [address] [facility], [address], [id number], [place]. tel:[phone] Referring Provider: Referral Self, USE FOR SELF REFERRALS. [facility], [address] [address], [place], [id number], [place] tel:[phone] No Information Jul-0 1 No Information [facility], [address] [address], [place], [id number], [place] tel:[phone] Infusion [facility] Crohn's disease of large intestine without complications 0 1 Donovan Mcgovern. [address] [facility], [address], [id number], [place]. tel:[phone] Referring Provider: Referral Self, USE FOR SELF REFERRALS. [facility], [address] [address], [place], [id number], [place] tel:[phone] In[facility] Crohn's disease of large intestine without complications 1 Andrew Dixon. [address] [facility], [address], [id number], [place]. tel:[phone] [facility], [address] [address], [place], [address], [place] tel:[phone] [facility] Crohn's disease of large intestine without complications 1 Ani Land. [address] [facility], [facility] [address], [place], [address], [place]. tel:[phone] Referring Provider: Referral Self, USE FOR SELF REFERRALS. [facility], [address] [address], [place], [address], [place] tel:[phone] [facility] No Information 1 Ani Land. [address] [facility], [address], [id number], [place]. tel:[phone] [facility], [address] [address], [place], [address], [place] tel:[phone] [facility] Crohn's disease of large intestine without complications 0 Gabino Gonzalez. [address] [facility], [address], [id number], [place]. tel:[phone] Referring Provider: Referral Self, USE FOR SELF REFERRALS. [facility], [address] [address], [place], [address], [place] tel:[phone] [facility] No Information 0 Gabino Gonzalez. [address] [facility], [facility] [address], [place], [address], [place]. tel:[phone] [facility], [address] [address], [place], [address], [place] tel:[phone] [facility] Crohn's disease of large intestine without complications 0 Andrew Dixon. [address] [facility], [facility] [address], [place], [address], [place]. tel:[phone] Referring Provider: Referral Self, USE FOR SELF REFERRALS. [facility], [address] [address], [place], [address], [place] tel:[phone] [facility] No Information Jan- 0 Andrew Dixon. [address], [id number], [place]. tel:[phone] [facility], [address] [address], [place], [address], [place] tel:[phone] [facility] Crohn's disease of large intestine without complications Nov- 0 Jones Ayoub. [address], [id number], [place]. tel:[phone] Referring Provider: Referral Self, USE FOR SELF REFERRALS. [facility], [address] [address], [place], [address], [place] tel:[phone] [facility] Crohn's disease of large intestine without complications Cedric- 0 Andrew Dixon. [address], [id number], [place]. tel:[phone] Referring Provider: Referral Self, USE FOR SELF REFERRALS. [facility], [address] [address], [place], [address], [place] tel:[phone] [facility] Crohn's disease of colon without complication Aug-0 0 Ani Land. [address], [id number], [place]. tel:[phone] [facility], [address] [address], [place], [address], [place] tel:[phone] [facility] Crohn's disease of large intestine without complications Aug-0 0 Tiera Fernandes. [address], [id number], [place]. tel:[phone] Referring Provider: Referral Self, USE FOR SELF REFERRALS. [facility], [address] [address], [place], [address], [place] tel:[phone] [facility] Crohn's disease of large intestine without complications Aug-0 0 Ani Land. [address] [facility], [facility] [address], [place], [address], [place]. tel:[phone] Referring Provider: Referral Self, USE FOR SELF REFERRALS. Offic/outpt E&m Estab Mod-hi 2 [facility] [facility], [address] [address], [place], [address], [place] tel:[phone] [facility] GI Symptoms or Concerns (chief complaint) Crohn's disease of colon without complication Jul-0 0 Ani Land. [address] [facility], [facility] [address], [place], [id number], [place]. [phone] [facility], [address] [address], [place], [address], [place] tel:[phone] Infusion [facility] Crohn's disease of large intestine without complications 0 0 Gabino Gonzalez. [address] [facility], [facility] [address], [place], [address], [place]. tel:[phone] Referring Provider: Referral Self, USE FOR SELF REFERRALS. [facility], [address] [address], [place], [address], [place] tel:[phone] [facility] Crohn's disease of large intestine without complications Polyp of colonPolyp of colonCrohn's disease of large intestine without complications 0 Ida Kingston. [address] [facility], [facility] [address], [place], [place], [id number], [place]. tel:[phone] [facility], [address] [address], [place], [address], [place] tel:[phone] [facility] No Information 9 Ani Land. [address] [facility], [facility] [address], [place], [address], [place]. [phone] [facility], [address] [address], [place], [address], [place] tel:[phone] Infusion [facility] Crohn's disease of large intestine without complications 9 Donovan Mcgovern. [address], [id number], [place]. tel:[phone] Referring Provider: Referral Self, USE FOR SELF REFERRALS. [facility], [address] [address], [place], [address], [place] tel:[phone] [facility] [place] Crohn's disease of large intestine without complications 9 Tiera Fernandes. [address], [id number], [place]. tel:[phone] Referring Provider: Referral Self, USE FOR SELF REFERRALS. [facility], [address] [address], [place], [address], [place] tel:[phone] [facility] Crohn's disease of large intestine without complications 9 Ani Land. [address], [id number], [place]. tel:[phone] Referring Provider: Referral Self, USE FOR SELF REFERRALS. [facility], [address] [address], [place], [address], [place] tel:[phone] [facility]fusion [place] Crohn's disease of large intestine without complications 9 Tiera Fernandes. [address], [id number], [place]. tel:[phone] Referring Provider: Referral Self, USE FOR SELF REFERRALS. [facility], [address] [address], [place], [address], [place] tel:[phone] Infusion [facility] Crohn's disease of large intestine without complications 9 No Information Referring Provider: Referral Self, USE FOR SELF REFERRALS. [facility], [address] [address], [place], [address], [place] tel:[phone] [facility]fusion [place] Crohn's disease of colon without complication 9 Ani Land. [address], [id number], [place]. tel:[phone] [facility], [address] [address], [place], [address], [place] tel:[phone] Infusion [facility] Crohn's disease of large intestine without complications 9 Jc Schmidt. [address] [place] [address], [id number], [place]. tel:[phone] Referring Provider: Referral Self, USE FOR SELF REFERRALS. [facility], [address] [address], [place], [address], [place] tel:[phone] [facility] Crohn's disease, unspecified, without complications Crohn's disease of large intestine without complications 9 Ani Land. [address] [place] [address], [id number], [place]. tel:[phone] Referring Provider: Referral Self, USE FOR SELF REFERRALS. [facility], [address] [address], [place], [address], [place] tel:[phone] [facility] Crohn's disease of colon without complication 9 Ani Land. [address] [place] [address], [id number], [place]. tel:[phone] [facility], [address] [address], [place], [address], [place] tel:[phone] Infusion [facility] Crohn's disease of large intestine without complications 9 Ryan Martínez. [address], [id number], [place]. tel:[phone] Referring Provider: Referral Self, USE FOR SELF REFERRALS. Offic/outpt E&m Estab Low-mod [facility], [address] [address], [place], [address], [place] tel:[phone] [facility] GI Symptoms or Concerns (chief complaint) Crohn's disease of colon without complicationD ietary counseling and surveillanceE levated blood-pressur e reading, w/o diagnosis of htn 9 Ani Land. [address], [id number], [place]. tel:[phone] Referring Provider: Referral Self, USE FOR SELF REFERRALS. [facility], [address] [address], [place], [address], [place] tel:[phone] [facility] Crohn's disease of colon without complication 9 Ani Land. [address], [id number], [place]. tel:[phone] [facility], [address] [address], [place], [address], [place] tel:[phone] [facility] Crohn's disease of large intestine without complications 9 Kranthi Marchahim. [address], [id number], [place]. tel:[phone] Referring Provider: Referral Self, USE FOR SELF REFERRALS. [facility], [address] [address], [place], [address], [place] tel:[phone] [facility]fusion [facility] Crohn's disease of large intestine without complications 8 Dami Paz. [address], [id number], [place]. tel:[phone] Referring Provider: Referral Self, USE FOR SELF REFERRALS. [facility], [address] [address], [place], [address], [place] tel:[phone] [facility] Crohn's disease, unspecified, without complications 8 Ani Land. [address], [id number], [place]. tel:[phone] Referring Provider: Referral Self, USE FOR SELF REFERRALS. [facility], [address] [address], [place], [address], [place] tel:[phone] Infusion [facility] Crohn's disease of large intestine without complications 8 Gabino Gonzalez. [address], [id number], [place]. tel:[phone] Referring Provider: Referral Self, USE FOR SELF REFERRALS. [facility], [address] [address], [place], [address], [place] tel:[phone] Infusion [facility] No Information 8 Andrew Dixon. [address], [id number], [place]. tel:[phone] Referring Provider: Referral Self, USE FOR SELF REFERRALS. [facility], [address] [address], [place], [address], [place] tel:[phone] [facility] Crohn's disease of colon without complication 8 Ani Land. [address], [id number], [place]. tel:[phone] [facility], [address] [address], [place], [address], [place] tel:[phone] [facility] [place] Crohn's disease of large intestine with rectal bleeding 8 Tiera Fernandes. [address], [id number], [place]. tel:[phone] Referring Provider: Referral Self, USE FOR SELF REFERRALS. [facility], [address] [address], [place], [address], [place] tel:[phone] [facility] Crohn's disease of large intestine with rectal bleeding 8 Ani Land. [address] [place] [address], [id number], [place]. tel:[phone] Referring Provider: Referral Self, USE FOR SELF REFERRALS. [facility], [address] [address], [place], [address], [place] tel:[phone] [facility] Crohn's disease of large intestine with rectal bleeding Apr-0 4-201 8 Kranthi Wilkins. [address] [facility], [place] [address], [place], [address], [place]. tel:[phone] Referring Provider: Referral Self, USE FOR SELF REFERRALS. Offic/outpt E&m Estab Low-mod [facility], [address] [address], [place], [address], [place] tel:[phone] [facility] GI Symptoms or Concerns (chief complaint) Crohn's disease of colon without complication 8 Ani Land. [address] [facility], [facility] [address], [place], [address], [place]. tel:[phone] Referring Provider: Referral Self, USE FOR SELF REFERRALS. [facility], [address] [address], [place], [address], [place] tel:[phone] [facility]fusion [facility] Crohn's disease of large intestine with rectal bleeding 8 Donovan Mcgovern. [address] [facility], [address], [id number], [place]. tel:[phone] Referring Provider: Referral Self, USE FOR SELF REFERRALS. [facility], [address] [address], [place], [address], [place] tel:[phone] [facility] Colorectal polyp detected on colonoscopyRa shCrohn's disease, unspecified, without complications Family history of colonic polypsPolyp of colon 8 Ani Land. [address] [facility], [facility] [address], [place], [address], [place]. tel:[phone] Referring Provider: Referral Self, USE FOR SELF REFERRALS. [facility], [address] [address], [place], [address], [place] tel:[phone] Infusion [facility] Crohn's disease of large intestine with rectal bleeding 7 Tiera Fernandes. [address] [facility], [facility] [address], [place], [address], [place]. tel:[phone] Referring Provider: Referral Self, USE FOR SELF REFERRALS. [facility], [address] [address], [place], [id number], [place] tel:[phone] [facility] Crohn's disease of large intestine without complications 7 Ani Land. [address] [facility], [address], [id number], [place]. tel:[phone] Referring Provider: Referral Self, USE FOR SELF REFERRALS. [facility], [address] [address], [place], [id number], [place] tel:[phone] [facility]fusion [place] Crohn's disease of large intestine without complications 7 Andrew Dixon. [address] [place] [address], [id number], [place]. tel:[phone] Referring Provider: Referral Self, USE FOR SELF REFERRALS. Offic/outpt E&m Estab Low-mod [facility], [address] [address], [place], [id number], [place] tel:[phone] [facility] GI Symptoms or Concerns (chief complaint) Crohn's disease of colon without complication 7 Ani Land. [address] [place] [address], [id number], [place]. tel:[phone] Referring Provider: Juan Luis ALCANTAR, [address], [place], [address]. tel:[phone] [facility], [address] [address], [place], [address], [place] tel:[phone] Infusion [facility] Crohn's disease of large intestine with rectal bleeding 7 Tiera Fernandes. [address], [id number], [place]. tel:[phone] Referring Provider: Referral Self, USE FOR SELF REFERRALS. [facility], [address] [address], [place], [address], [place] tel:[phone] Infusion [facility] Crohn's disease of large intestine with rectal bleeding 7 Gabino Gonzalez. [address] [facility], [facility] [address], [place], [address], [place]. [phone] Referring Provider: Referral Self, USE FOR SELF REFERRALS. [facility], [address] [address], [place], [address], [place] tel:[phone] [facility] Crohn's disease of large intestine with rectal bleeding 7 Andrew Dixon. [address] [facility], [facility] [address], [place], [address], [place]. tel:[phone] Referring Provider: Referral Self, USE FOR SELF REFERRALS. Offic/outpt E&m Estab Mod-hi 4 [facility], [address] [address], [facility] [place], [address], [place] tel:[phone] [facility] GI Symptoms or Concerns (chief complaint) Crohn's disease of large intestine with rectal bleeding 7 Ani Land. [address] [facility], [facility] [address], [place], [address], [place]. [phone] Referring Provider: Juan Luis ALCANTAR, [address], [place], [address]. tel:[phone] [facility], [address] [address], [facility] [place], [address], [place] tel:[phone] [facility] Crohn's disease of large intestine with rectal bleedingInfla mmatory polyps of colon with rectal bleedingCrohn 's disease of large intestine with rectal bleedingInfla mmatory polyps of colon with rectal bleeding 7 Ani Land. [address] [facility], [facility] [address], [place], [address], [place]. tel:[phone] Referring Provider: Juan Luis ALCANTAR, [address], [place], [address]. tel:[phone] Offic/outpt E&m Estab Low-mod [facility], [address] [address], [facility], [address], [place] tel:[phone] [facility] GI Symptoms or Concerns (chief complaint) Crohn's disease of large intestine with rectal bleedingDieta ry counseling and surveillance 7 Ani Land. [address] [facility], [address], [id number], [place]. tel:[phone] Referring Provider: Referral Self, USE FOR SELF REFERRALS. [facility], [address] [address], [place], [id number], [place] tel:[phone] [facility] Crohn's disease of large intestine without complications 7 Ani Land. [address] [place] [address], [address], [id number], [place]. tel:[phone] Referring Provider: Referral Self, USE FOR SELF REFERRALS. [facility], [address] [address], [place], [id number], [place] tel:[phone] [facility] Crohn's colitis, without complications 7 No Information Offic/outpt E&m Estab Mod-hi 2 [facility], [address] [address], [place], [id number], [place] tel:[phone] [facility] GI Symptoms or Concerns (chief complaint) Crohn's colitis, without complications 6 Ani Land. [address] [place] [address], [facility] [address], [place], [address], [place]. tel:[phone] Referring Provider: Referral Self, USE FOR SELF REFERRALS. [facility], [address] [address], [place], [address], [place] tel:[phone] [facility] ColitisNoninf ective gastroenterit is and colitis, unspecified 6 No Information Referring Provider: Juan Luis ALCANTAR, [address], [place], [address]. tel:[phone] Offic/outpt E&m Estab Low-mod [facility], [address] [address], [place], [address], [place] tel:[phone] [facility] GI Symptoms or Concerns (chief complaint) Irritable bowel syndrome without diarrheaBRBPR (bright red blood per rectum)Elevat ed blood-pressur e reading, w/o diagnosis of htnDietary counseling and surveillance 6 RAFYsarai RAHEEL Millie. [address] [facility], [facility] [address], [place], [address], [place]. [phone] Referring Provider: Emery Law MD, [address], [address]. [phone] [facility], [address] [address], [place], [id number], [place] tel:[phone] [facility] No Information 4 No Information Offic/outpt E&m Estab Mod-hi 2 [facility], [address] [address], [place], [address], [place] tel:[phone] [facility] Colitis (chief complaint) DiarrheaEpiga stric PainWeight LossVaccin Strep Pneumoniae 3 Ani Land. [address] [facility], [facility] [address], [place], [place], [address], [place]. [phone] Referring Provider: Juan Luis ALCANTAR, [address], [place], [address]. tel:[phone] [facility], [address] [address], [place], [address], [place] tel:[phone] [facility] Colitis Unspecified/I BDDiarrheaRec maylin Bleed/BRBPRIr ritable Bowel SyndromeDiarr heaIrritable Bowel SyndromeRecta l Bleed/BRBPR 2 No Information Referring Provider: Juan Luis ALCANTAR, [address], [place], [address]. tel:[phone] [facility], [address] [address], [place], [address], [place] tel:[phone] [facility] No Information 2 Ani Land. [address] [facility], [address], [place], [place], [address], [place]. tel:[phone] Referring Provider: Juan Luis ALCANTAR, [address], [place], [address]. tel:[phone] Family History Family Member Type Diagnosis Age At Onset Mother Problem (finding) Colon polyps Father Problem (finding) prostate cancer Sister Problem (finding) Alive and well Father Problem (finding) GERD Brother Problem (finding) Alive and well Immunizations Vaccine Date Status Comments SARS-COV-2 (COVID-19) vaccine, mRNA, spike protein, LNP, preservative free, sheyla-sucrose, 30 mcg/0.3 mL dose administered Note: [facility] bi-direct ional interface ; Source: Other Registry Seasonal, quadrivalent, recombinant, injectable influenza vaccine, preservative free administered Note: [facility] bi-direct ional interface ; Source: Other Registry SARS-COV-2 (COVID-19) vaccine, mRNA, spike protein, LNP, bivalent, preservative free, 30 mcg/0.3 mL dose, sheyla-sucrose formulation administered Note: [facility] bi-d irectional interface ; Source: Other Registry Influenza, injectable, Madin Vilma Canine Kidney, preservative free, quadrivalent administered Note: [facility] bi-direct ional interface ; Source: Other Registry SARS-COV-2 (COVID-19) vaccine, mRNA, spike protein, LNP, bivalent, preservative free, 30 mcg/0.3 mL dose, sheyla-sucrose formulation administered Note: [facility] bi-d irectional interface ; Source: Other Registry SARS-COV-2 (COVID-19) vaccine, mRNA, spike protein, LNP, bivalent booster, preservative free, 30 mcg/0.3 mL dose, sheyla-sucrose formulation administered Note: [facility] bi-d irectional interface ; Source: Other Registry SARS-COV-2 (COVID-19) vaccine, mRNA, spike protein, LNP, preservative free, 30 mcg/0.3mL dose administered Note: [facility] bi-di rectional interface ; Source: Other Registry Influenza, seasonal, injectable administered Note: [facility] bi-direct ional interface ; Source: Other Registry SARS-COV-2 (COVID-19) vaccine, mRNA, spike protein, LNP, preservative free, 30 mcg/0.3mL dose administered Note: [facility] bi-di rectional interface ; Source: Other Registry SARS-COV-2 (COVID-19) vaccine, mRNA, spike protein, LNP, preservative free, 30 mcg/0.3mL dose administered Note: [facility] bi-di rectional interface ; Source: Other Registry SARS-COV-2 (COVID-19) vaccine, mRNA, spike protein, LNP, preservative free, 30 mcg/0.3mL dose administered Note: [facility] bi-di rectional interface ; Source: Other Registry zoster vaccine recombinant administered N ote: [facility] bi-directional interface ; Source: Other Registry zoster vaccine recombinant administered N ote: [facility] bi-directional interface ; Source: Other Registry tetanus toxoid, reduced diphtheria toxoid, and acellular pertussis vaccine, adsorbed administered Note: [facility] bi-direct ional interface ; Source: Other Registry Afluria Qd administered Note: [facility] bi-directional interface ; Source: Other Registry Afluria Qd administered Note: [facility] bi-directional interface ; Source: Other Registry Fluzone Quad 6mo or older administered Note: [facility] bi-direct ional interface ; Source: Other Registry Afluria Qd administered Note: [facility] bi-directional interface ; Source: Other Registry Afluria Qd administered Note: [facility] bi-directional interface ; Source: Other Registry Fluzone Quad 6mo or older administered Note: [facility] bi-direct ional interface ; Source: Other Registry Influenza, injectable, MDCK, preservative free Flucelvax Quad administered Source: Other Provid er Pneumo (2 yrs or older)(PPV) not administ ered Source: New Immunization Record Afluria Qd administered Note: [facility] bi-directional interface ; Source: Other Registry Afluria Qd administered Note: M [facility] bi-directional interface ; Source: Other Registry Fluzone Quad 6mo or older administered Note: [facility] bi-direct ional interface ; Source: Other Registry Havrix administered Note: [facility] bi-d irectional interface ; Source: Other Registry Hep A (adult) administered Source: New Im munization Record Afluria Qd administered Note: M [facility] bi-directional interface ; Source: Other Registry Afluria Qd administered Note: M [facility] bi-directional interface ; Source: Other Registry Fluzone Quad 6mo or older administered Note: [facility] bi-direct ional interface ; Source: Other Registry Havrix administered Note: [facility] bi-d irectional interface ; Source: Other Registry hepatitis B vaccine, unspecified formulation administered Note: [facility] bi-di rectional interface ; Source: Other Registry Prevnar administered Note: [facility] bi-d irectional interface ; Source: Other Registry Hep A (adult) administered Source: New Im munization Record Pneumococcal conjugate PCV 13 administered Source: New Immuniza tion Record Engerix-B administered Note: [facility] bi-d irectional interface ; Source: Other Registry Influenza virus vaccine, injectable, quadrivalent, split virus, preservative free, 3 years or older Fluarix Quad administered Source: Other Pro vider Afluria Qd administered Note: [facility] bi-directional interface ; Source: Other Registry Afluria Qd administered Note: M [facility] bi-directional interface ; Source: Other Registry Fluzone Quad 6mo or older administered Note: [facility] bi-direct ional interface ; Source: Other Registry Influenza, seasonal, injectable, preservative free administered Note: [facility] bi-direct ional interface ; Source: Other Registry Influenza, seasonal, injectable administered Note: [facility] bi-direct ional interface ; Source: Other Registry tetanus toxoid, reduced diphtheria toxoid, and acellular pertussis vaccine, adsorbed administered Note: [facility] bi-direct ional interface ; Source: Other Registry Novel [id number], all formulations administered Note: [facility] bi-direct ional interface ; Source: Other Registry Influenza, seasonal, injectable administered Note: [facility] bi-direct ional interface ; Source: Other Registry Influenza, seasonal, injectable administered Note: [facility] bi-direct ional interface ; Source: Other Registry Influenza, seasonal, injectable administered Note: [facility] bi-direct ional interface ; Source: Other Registry Influenza, seasonal, injectable administered Note: [facility] bi-direct ional interface ; Source: Other Registry Influenza, seasonal, injectable administered Note: [facility] bi-direct ional interface ; Source: Other Registry Influenza, seasonal, injectable administered Note: [facility] bi-direct ional interface ; Source: Other Registry Pneumovax 23 administered Note: [facility] bi-d irectional interface ; Source: Other Registry hepatitis B vaccine, unspecified formulation administered Note: [facility] bi-di rectional interface ; Source: Other Registry Payers Payer name Insurance type Covered constitution party ID Authoriza tion(s) [facility] [id number] [facility] [employer] [facility] [id number] [facility] [id number] Social History Type Description Quantity Date Captured Comments Sex Male Smoking Status No Information Chief Complaint And Reason For Visit No Information Reason For Referral Reason For Referral No Information Plan Of Treatment Date Type Action Status Goal Lifestyle education regardin g diet completed Goal Lifestyle education regardin g diet completed Goal Lifestyle education regardin g diet completed Referral Ordered: Iron/TIBC Appointment date/timeframe: 11/29/2022 ordered Referral Ordered: CBC W/diff, Whole Blood Appointment date/timeframe: 11/29/2022 ordered Referral Ordered: Ferritin Appointment date/timeframe: 11/29/2022 ordered Referral Ordered: QuantiFERON TB Gold Plus Appointment date/timeframe: 11/15/2022 ordered Referral Ordered: TSH Appointment date/timeframe: 11/29/2022 ordered Referral Ordered: Modify IBD Disease Management Protocol Appointment date/timeframe: First Available ordered Referral Ordered: follow-up visit with Emery Law MD in 1 Year or by 08/02/2020 Appointment date/timeframe: 1 Year ordered Referral Ordered: referred to Dr. Castrejon, Dr[facility] within 1 Month Appointment date/timeframe: 1 Month ordered Referral Ordered: Administer Remicade 5mg/kg every eight weeks, infuse by IV route ordered Referral Ordered: C difficile Toxin Gene ANGELA Appointment date/timeframe: 12/12/2016 ordered Referral Ordered: Administer Remicade 5mg/kg at weeks 0, 2 and 6. Infuse by IV route. ordered Referral Ordered: Financial Counselor Review Appointment date/timeframe: -today ordered Referral Ordered: follow-up visit with Emery Law MD ok IBD/urgent, 12:30 add-on PM clinic in 2-4 weeks Appointment date/timeframe: 2-4 weeks ordered Referral Ordered: follow-up visit with Emery Law MD Crohns colitis 2 Weeks Appointment date/timeframe: 2 Weeks ordered Appointment Jackson Guzman BOOKED Appointment Jackson Guzman BOOKED Appointment Jackson Guzman BOOKED Appointment Jackson Guzman BOOKED Future Order: Lab Order T Spot T B ([id number]), Body Site: Left Antecubital Fossa, Ordered on: Ordered Future Order: Lab Order T Spot T B ([id number]), Body Site: Right Antecubital Fossa, Ordered on: Ordered History Of Present Illness Encounter Date Complaint History Of Prese nt Illness Previous History Review Previous IBD history is detailed below:The patient's Crohn's colitis diagnosed in 2011.ENDOSCOPIESUpper endoscopy, May 2012: LA grade A reflux esophagitis. Diffuse pinpoint erosions in the antrum and body with nonspecific gastric polyps. Nodular erythema of the duodenum. Gastric biopsy showed reactive gastropathy with nonspecific chronic inflammation, negative for H. pylori. Fundic gland polyps. Duodenal biopsies showed chronic peptic duodenitis.Colonoscopy, July 2021: Normal ileum. Entire colon normal. Two small hyperplastic polyps removed from the rectum. Hemorrhoids. Right colon, left colon, and rectal biopsies were all normal.IMAGINGMR enterography, July 2012: No convincing evidence of inflammatory bowel disease on MR.TREATMENTTrial of Lialda, no change in symptoms.CURRENT TREATMENTRemicade 5 mg/kg every 8 weeks, started in November 2016. His trough infliximab level was 3.4 with an anti-infliximab antibody level of 54 in September 2019. We have kept him at the current dose, given his complete remission.HEALTH CARE MAINTENANCEInfluenza vaccine yearly. Pneumovax done in 1998 and 2012. Prevnar done in 2015. Hepatitis A vaccine done in 2016. He is immune to hepatitis B based on serology in 2015. He will discuss Shingles vaccine with primary provider. He has had the COVID vaccine and boosters.Vitamin D was checked at his primary clinic last month and is normal.T-SPOT was negative in September 2018. Note, this is not covered by his insurance. It was done at that time because he had a co-worker with TB. We will pursue QuantiFERON testing for future screening.Surveillance colonoscopy due in 2 years, 2023. GI Symptoms or Concerns Tushar is present with his Denise for a virtual visit today. He reports that overall from a Crohn's standpoint he is feeling very well. Feels like the treatments are working. He no longer gets nausea or headache after the treatments. He has had significant fatigue any questions if this is from the treatment of her Crohn's. His last hemoglobin in 2021 was 17. He does report that he only gets about 5 hours of sleep a night. He does snore he is never had any sleep study. He also reports that he has had some erectile dysfunction recently and questions if this is from Crohn's or the treatment. GI Symptoms or Concerns Tushar is a pleasant 56-year-old male who presents with his , Denise, for televisit today for followup regarding his Crohn's disease. He reports that he is doing well over the last year. No significant symptoms. He does have some fatigue after the infusions, he no longer has headaches.The patient's Crohn's colitis diagnosed in 2011.ENDOSCOPIESUpper endoscopy, May 2012: LA grade A reflux esophagitis. Diffuse pinpoint erosions in the antrum and body with nonspecific gastric polyps. Nodular erythema of the duodenum. Gastric biopsy showed reactive gastropathy with nonspecific chronic inflammation, negative for H. pylori. Fundic gland polyps. Duodenal biopsies showed chronic peptic duodenitis.Colonoscopy, July 2021: Normal ileum. Entire colon normal. Two small hyperplastic polyps removed from the rectum. Hemorrhoids. Right colon, left colon, and rectal biopsies were all normal.IMAGINGMR enterography, July 2012: No convincing evidence of inflammat GI Symptoms or Concerns Tushar is a pleasant 55-year-old male who presents for a televisit today for followup regarding his Crohn's disease. The patient reports that he has done well over this last year during the pandemic. They were able to go on their first vacation in July last year; however, the second vacation was canceled. Ultimately, he ended up getting his gallbladder removed in 2019. It took 3 to 4 months to fully recover, but he feels much better after this. The prior abdominal pain and discomfort have improved. His stools are mostly formed, this week they have been a little loose. He is due for a second [employer] vaccine today. He does report 15 pounds of intentional weight loss, which he is proud of over the last year.The patient's Crohn's colitis was diagnosed in 2011.IMAGINGUpper endoscopy, May 2012: LA grade A reflux esophagitis. Diffuse pinpoint erosions in the antrum and body with nonspecific gastric polyps. Nodular erythema in the duodenum. Gastric biopsies showed GI Symptoms or Concerns Jackson is a pleasant 54-year-old male who presents for followup with his regarding his Crohn's disease. He reports from a Crohn's standpoint, he is doing well. No loose stools. Formed stools.He had no further episodes of pneumonia, which was in June 2018, none after this. Unfortunately, he had an episode of a kidney stone in November, needed Urology to place a stent, remove the stent, and after this, he did get antibiotics after an infection with a stent placement. He does have a history of kidney stone in the past. Finally, he has a skin infection at his nail bed recently. He is currently on cephalexin. He is frustrated by the need for antibiotics 3 times in this last year.The patient's Crohn's colitis was diagnosed in 2011.Upper endoscopy, May 2012: LA grade A reflux esophagitis. Diffuse pinpoint erosions in the antrum and body with nonspecific gastric polyps. Nodular erythema in the duodenum. Gastric biopsy showed reactive gastropathy with nonspecific GI Symptoms or Concerns Jackson is a pleasant 53-year-old male, who presents with his for a followup regarding his Crohn's disease. He reports he feels great. No significant loose stools. Formed stools daily. He does have some dietary triggers, which include alcohol and peppers.He did have an episode of pneumonia with asthma, which was quite severe. Complex on antibiotics in June. This is his first infection since starting Remicade. He still has some small bumps on his legs, this was evaluated by Dermatology.The patient's Crohn's colitis diagnosed in 2011.ENDOSCOPIESUpper endoscopy, May 2012: LA grade A reflux esophagitis. Diffuse pinpoint erosions in the antrum and body with nonspecific gastric polyps. Nodular erythema in the duodenum. Gastric biopsy showed reactive gastropathy with nonspecific chronic inflammation, negative for H. pylori. Fundic gland polyps. Duodenal biopsy showed chronic peptic duodenitis.Colonoscopy, June 2017: Normal ileum. Small hyperplastic GI Symptoms or Concerns Jackson present with his . He is a pleasant 52-year-old male. He reports that he is feeling good. He is having one two formed stools per day. No blood in the stool. He did see Dr. Nyla Edwards with Dermatology and he prescribed a steroid cream for the bumps on his legs and did not feel that it was secondary to Remicade. He is tolerating the Remicade well.The patient's Crohn's colitis was diagnosed in 2011.ENDOSCOPIES1. Upper endoscopy, May 2012: LA grade A reflux esophagitis. Diffuse pinpoint erosions in the antrum and body with nonspecific gastric polyps. Nodular erythema in the duodenum. Gastric biopsy showed reactive gastropathy with nonspecific chronic inflammation, negative for H. pylori. Fundic gland polyps. Duodenal biopsy showed chronic peptic duodenitis.2. Colonoscopy, June 2017: Normal ileum. Small hyperplastic polyp removed from the sigmoid. Internal and external hemorrhoids. Remainder of exam was normal, he does have a redundant colon. De GI Symptoms or Concerns Jackson presents with his for followup regarding his Crohn's disease. He is a pleasant 52-year-old male. He reports that since starting Remicade, his bowel movements are now very near normal. He has no rectal bleeding. He has one to three small formed stools per day. He very rarely has diarrhea or constipation. There is still some mild urgency. Note, he was off prednisone just prior to his first Remicade treatment. His only symptom he has noticed is some increased bloating. Prior to starting prednisone, his symptoms were incomplete evacuation, urgency, rectal bleeding, and loose stools three to four times per day.The patient's Crohn's colitis diagnosed in 2011.ENDOSCOPIESUpper endoscopy, May 2012. LA grade A reflux esophagitis. Diffuse pinpoint erosions in the antrum and body with a few nonspecific gastric polyps. Nodular erythema in the duodenum. Gastric biopsies showed reactive gastropathy with nonspecific chronic inflammation, negative for H. pylori. Fu GI Symptoms or Concerns Jackson presents with his for followup regarding his Crohn's disease. He is a pleasant 51-year-old male. He reports since his colonoscopy after starting prednisone, his symptoms are improved. He is now having a normal bowel movement today and no blood. Note, over the last five to six weeks, he has had incomplete evacuation, urgency, rectal bleeding, loose stools three to four times a day.The patient's Crohn's colitis was diagnosed in 2011.ENDOSCOPIES1. Upper endoscopy, May 2012: LA grade A reflux esophagitis. Diffuse pinpoint erosions in the antrum and body with a few nonspecific gastric polyps. Nodular erythema in the duodenum. Gastric biopsies showed reactive gastropathy with nonspecific chronic inflammation, negative for H. pylori. Fundic gland polyps. Duodenal biopsy showed chronic peptic duodenitis.2. Colonoscopy, May 2012: Normal ileum. Patchy inflammation with a small segment at the hepatic flexure and in the mid-transverse colon. From the an GI Symptoms or Concerns Tushar alcala sents with his for followup regarding his Crohn's disease. He is a pleasant 51-year-old male. He tried Lialda after his last visit September 2015 for 60 days, but noticed no change in symptoms. Quite honestly, he was symptom-free until six weeks ago. Since that time, he started to have bloating constipation, which he expresses as just a sense of incomplete evacuation and this progressed to rectal bleeding. He is now having loose stools as well. He has a loose stools three times a day with the sense of incomplete evacuation and urgency. He has had decreased appetite. He has lost six pounds. There is no fever. He is not on any treatment.The patient's Crohn's colitis was diagnosed in 2012.ENDOSCOPIES1. Upper endoscopy, May 2012: LA grade A reflux esophagitis. Diffuse pinpoint erosions in the antrum and body with a few small gastric polyps. Nodular erythema in the duodenum. Gastric biopsies showed reactive gastropathy with nonspecific chronic inflammation, GI Symptoms or Concerns Tushar alcala sents for followup regarding his Crohn's disease. The patient was seen in 2012 and there was suspicion of Crohn's disease at that time; however, his symptoms resolved without treatment, close followup was recommended; however, the patient did not return until this year when he presented after having abdominal pain and diarrhea for a few weeks. Recent colonoscopy does confirm the presence of mild Crohn's disease. He was started on Lialda one tablet twice a day and his symptoms have resolved. He does describe some heart fluttering, which we discussed, that he should discuss the symptom with Dr. Olivas. The patient had three weeks of abdominal pain with two to three loose to semi-formed stools per day. No blood in the stool. Since starting Lialda one tablet twice a day, he has normal bowel movements, one to two times a day. No blood. No abdominal pain, no nausea or vomiting. He is eating better. He does still report some intermittent episodes of abdominal pain with a GI Symptoms or Concerns Jackson Guzman is a 50-year-old male with a medical history of irritable bowel syndrome as well as a questionable diagnosis of Crohn's disease, who presents today for evaluation of abdominal pain and one episode of bright red blood per rectum.The patient was last evaluated in 2012. At that time, he had been experiencing diarrhea as well as some rectal bleeding. He underwent a colonoscopy, which did reveal patchy inflammation and the biopsy showed active chronic inflammation. The patient was evaluated by Dr. Emery Law. It was decided that at that time, the patient's symptoms had resolved spontaneously without any treatment, although the biopsies would support at minimum mild Crohn's disease. An MR enterography also completed in 2012 was unremarkable. Followup labs did indicate an elevated CRP with some mild iron deficiency. It was decided that the patient would be monitored and return to clinic if he had any return of his symptoms.The patient mentions three weeks of Functional Status Date Functional Assessmen t No Information Instructions Date Instruction Additional Infor meghan - Remicade 5mg/kg ev jaiden 8 weeks- Routine labs with TSH and iron studies next week- Discuss a sleep study with your primary clinic- The goal should be 7 hours of sleep a night, typically you have to be in bed for 8 hours to get 7 hours of sleep nightly.- Discuss Shingles vaccine with your primary clinic, if not already done- Follow-up in 1 year Related to Crohn's disease of large intestine without complication Infliximab IV per ac celerated protocol Infliximab IV per ac celerated protocol - Continue Remicade 5mg/kg every 8 weeks- Continue maintenance lab protocol, ok to get labs done at primary clinic- Follow-up in 1 year Related to Crohn's disease of colon without complication Infliximab IV per ac celerated protocol Infliximab IV per ac celerated protocol Infliximab IV per ac celerated protocol Colon Polyps Related to Crohn 's disease of large intestine without complications Infliximab IV per ac celerated protocol - Continue Remicade 5mg/kg every 8 weeks- Vit D with next routine labs- If ongoing loose stools, patient will call and we would check a fecal calprotectin- Follow-up in 1 year Related to Crohn's disease of colon without complication - Continue Remicade 5mg/kg every 8 weeks- Will check a trough infliximab level before next Remicade with routine labs- Patient get screened for diabetes by his primary provider- Follow-up in clinic in 1 year Related to Crohn's disease of colon without complication Colon Polyps Related to Polyp of colon Infliximab IV per celerated protocol - Vitamin D in 2 mon th- Colonoscopy in 1 year for surveillance- Follow-up in clinic in 1 year, after the colonoscopy- Continue Remicade 5mg/kg every 8 weeks Related to Crohn's disease of colon without complication Lifestyle education regarding di et Related to Dietary counseling and surveillance Infliximab IV per ac celerated protocol - Continue Remicade 5mg/kg every 8 weeks- Follow-up in clinic in 1 year Related to Crohn's disease of colon without complication Colon Polyps Related to Color ectal polyp detected on colonoscopy Hemorrhoids Related to Color ectal polyp detected on colonoscopy - Continue Remicade 5mg/kg every 8 weeks- Pursue Low FODMAP diet- Colonoscopy to assess mucosal healing in 4 months- Follow-up in clinic in 6 months Related to Crohn's disease of colon without complication Low FODMAPS diet Related to Croh n's disease of colon without complication - Routine labs with Tspot- C. diff, if ongoing diarrhea- Start Remicade after prior authorization from insurance by financial counselors- Continue prednisone taper- Follow-up in clinic in 3 months Related to Crohn's disease of large intestine with rectal bleeding Remicade (infliximab) Related to Crohn's disease of large intestine with rectal bleeding Colon Cancer Prevention Related to Crohn's disease of large intestine with rectal bleeding Colon Polyps Related to Crohn 's disease of large intestine with rectal bleeding IBD Folder Related to Crohn 's disease of large intestine with rectal bleeding AZA/6-MP Related to Crohn 's disease of large intestine with rectal bleeding Humira (adalimumab) Related to C rohn's disease of large intestine with rectal bleeding - Colonoscopy with i schrader evaluation, if possible- Further treatment pending the colonoscopy results- Follow-up in clinic in 6 months, may change based on colonoscopy results. Related to Crohn's disease of large intestine with rectal bleeding Lifestyle education regarding di et Related to Dietary counseling and surveillance Colonoscopy - Prevnar- Hep A vac cine- Routine labs- Continue Lialda 1 tablet BID- Follow-up in 1 year Related to Crohn's colitis, without complications IBD Folder Related to Crohn 's colitis, without complications Hemorrhoids Related to Colit is High Fiber Diet Related to Colit is FODMAPS Related to BRBPR (bright red blood per rectum) Lifestyle education regarding di et Related to Dietary counseling and surveillance Colonoscopy Related to Hemor rhage of anus and rectum Assessments Type Assessment Date No Information Patient Care Teams Name Effective Dates (start - stop) Status Members No Information
--- OUTSIDE RECORDS SUMMARY | 2023-09-30 07:04 | XMS_ITS | Encounter Summary ---
Author Name Unknown Organization [facility] Address [address] [place] [id number] Care Team Providers Care Buffer Machine Name Role Phone Neto Baez Primary Care Provider [phone] Timo Muniz MD Unavailable [phone] Encounter Details Date Type Department Care [...] documented as of this encounter Care Teams Buffer Machine Relationship Specialty Start Date End Date Neto Baez [address] [address] PCP - General Family Practice 01/11/20 Timo Muniz MD [address] [place] [id number] Assigned Surgical Provider 07/02/20 documented as of this encounter
--- OUTSIDE RECORDS SUMMARY | 2023-09-30 07:04 | XMS_ITS | Encounter Summary ---
Author Name Unknown Organization [facility] Address [address] [place] [address]. [place] [address] Care Team Providers Care Landfill Grader Name Role Phone Juan Luis Olivas MD Primary Care Provider [phone] Neto Baez Primary Care Provider + [phone] Cuco Rapp MD Unavailable [phone] Timo Muniz MD Unavailable [phone] Reason for Visit * Reason Onset Date Comments Appointment 12/14/2018 Sooner appointme nt Encounter Details Date Type Department Care Team (Late st Contact Info) Description 12/14/2018 [facility] [address] [place] [address] System, Provider Not In Appointment (Sooner appointment) Social History Tobacco Use Types Packs/Day Years Used Date Smoking Tobacco: Never Assessed Sex and Gender Information Value Date Recorded Sex Assigned at Not on file Gender Identity Not on file Sexual Orientation Not on file documented as of this encounter Miscellaneous Notes * Telephone Encounter - Frannie Brown - 12/14/2018 4:54 PM CDT [facility] Call Center Phone Message May a detailed message be left on voicemail: yes Reason for Call: Other: Pt is needing to schedule an appointment at [facility] to be seen for a kidney stone. [...] on filedocumented in this encounter Care Teams Landfill Grader Relationship Specialty Start Date End Date Juan Luis Olivas MD PCP - General Family Practice 12/14/18 01/10/20 Neto Baez [address] [address] PCP - General Family Practice 01/11/20 Cuco Rapp MD [id number] [address] Assigned Surgical Provider 03/24/20 Timo Muniz MD [address] [place], [place] [id number] Assigned Surgical Provider 07/02/20 documented as of this encounter
--- NOTE | 2023-09-30 07:15 | MR_ITS ---
Patient: AGUSTINA WEIR Facility:?[facility] Patient ID:?[id number] Site Patient ID:?[id number]. Site :?1965 Study:?MRI-Abdomen W/ and W/O Cont 20 CC DOATERM LIVER-09/30/2023 8:57:45 AM Ordering Physician:?BENITO RICARDO Final Report: INDICATION: 2.4 x 1.8 cm hypodense liver lesion adjacent to gallbladder fossa seen on chest CT. Follow up. TECHNIQUE: Multiplanar imaging of the abdomen was performed without and with 20 cc of Dotarem contrast material IV. COMPARISON: Chest CT of 07/09/2023, chest MRI performed today and abdomen/pelvis CT of 01/08/2019 FINDINGS: A benign cyst measuring 2.6 x 2.3 x 1.8 cm containing several thin septations is demonstrated in the inferior aspect of liver segment 4B and corresponds to the lesion of concern on CT. This is increased from roughly 1.5 cm on the abdomen CT of 2019. A 1.2 x 0.9 x 0.8 cm cyst is also demonstrated in segment 3. Several additional subcentimeter cysts are noted as well. The liver is otherwise unremarkable. Postop changes of cholecystectomy are again demonstrated. No abnormal contrast enhancement is demonstrated in the liver. The bile ducts are normal in caliber. The spleen, adrenal glands, kidneys and pancreas are within normal limits. No lymphadenopathy is apparent. No intrinsic bowel abnormality is evident. No free fluid is demonstrated. IMPRESSION: 1. Benign liver cysts, as above. 2. Post cholecystectomy. Dictated by Rolando Daly MD @ 10/01/2023 7:58:27 AM Signed by:?Rolando Daly MD @10/01/2023 7:58:27 AM (Electronic Signature)
--- NOTE | 2023-09-30 08:45 | MR_ITS ---
Patient: AGUSTINA WEIR Facility:?[facility] Patient ID:?[id number] Site Patient ID:?[id number]. Site :?1965 Study:?MRI-Chest W/ and W/O Cont 20 CC DOATERM MEDIASTINUM-09/30/2023 8:56:55 AM Ordering Physician:?BENITO RICARDO Final Report: INDICATION: Mediastinal mass seen on chest CT TECHNIQUE: Multiplanar imaging of the chest was performed without and with 20 cc of Dotarem contrast material IV. COMPARISON: Chest CT of 07/09/2023 and today`s abdomen MRI FINDINGS: A 3.7 x 2.0 x 1.9 cm anterior mediastinal mass is demonstrated, as on CT. This appears unchanged in size. This lesion is medium in signal intensity on T1- weighted images and hyperintense on T2-weighted images. This mass demonstrates no contrast enhancement and is apparently a thin-walled cyst. No mediastinal, hilar or axillary lymphadenopathy is apparent. The lungs and pleural spaces are grossly negative. The heart size is normal. No marrow signal abnormality is apparent. IMPRESSION: Benign-appearing 3.7 x 2.0 x 1.9 cm thin-walled anterior mediastinal cyst. A [address] up chest CT is suggested to ensure stability. Dictated by Rolando Daly MD @ 10/01/2023 7:39:22 AM Signed by:?Rolando Daly MD @10/01/2023 7:39:22 AM (Electronic Signature)
== END 2023-09-30 07:02 | disposition home or self-care (01) ==
LOC: MRI 07:02
PROVIDERS: PCP Internal Medicine; Visit Provider Internal Medicine
DX: K76.9 Liver disease, unspecified (principal); J98.59 Other diseases of mediastinum, not elsewhere classified
CPT/HCPCS: 71552; 74183; A9575

== ENCOUNTER 2023-10-20 08:09 | Outpatient (CLI) | payer BC, SELFPAY ==
--- OUTSIDE RECORDS SUMMARY | 2023-10-20 08:43 | XMS_ITS | Referral Summary ---
Author Name Unknown Organization [place] Address [address] [place] [address] Care Team Providers Care Hand Paster Name Role Phone Sasha, Neto Encarnacion Primary Care Provider Allergies Active Allergy Reactions Criticality Noted Date Comments Sulfa Antibiotics Anaphylaxis,Swelling High 12/15/19 Medications Medication Sig Dispensed Refills Start Date End Date Status omeprazole 20 MG tablet Take 20 mg by mouth daily Active fluticasone (FLONASE) 50 MCG/ACT nasal spray [place] 1 spray into both nostrils daily Active [...] on file Medical Devices Implanted Type Area Licensing Analyst Device Identifier Shelf Expiration Date Model / Serial / Lot Stent Ureteral Polaris Ultra [id number] Implanted:Qty: 1 on 12/18/2018 by Cuco Rapp MD at [facility] Stent Right: Ureter [employer] 07/19/2021 [id number] / / [id number] Procedures Procedure Name Priority Date/Time Associated Diagnosis Comments COMPREHENSIVE METABOLIC PANEL STAT 01/11/2020 2:48 AM CDT from Last 3 Months or Most Recently Relevant to Health Maintenance Results * (ABNORMAL) Comprehensive metabolic panel (01/11/2020 2:48 AM CDT) Sodium 140 133 - 144 mmol/L 01/11/2020 3:49 AM CDT [facility] Potassium 3.7 3.4 - 5.3 mmol/L 01/11/2020 3:49 AM T [facility] Comment:Specimen slightly he molyzed, potassium may be falsely elevated Chloride 109 94 - 109 mmol/L 01/11/2020 3:49 AM CDT [facility] Carbon Dioxide 27 20 - 32 mmol/L 01/11/2020 3:49 AM T [facility] Anion Gap 4 3 - 14 mmol/L 01/11/2020 3:49 AM T [facility] Glucose 132(H) 70 - 99 mg/dL 01/11/2020 3:49 AM T [facility] Urea Nitrogen 14 7 - 30 mg/dL 01/11/2020 3:49 AM [facility] Creatinine 1.02 0.66 - 1.25 mg/dL 01/11/2020 3:49 AM [facility] GFR Estimate 82 >60 mL/min/{1. 73_m2} 01/11/2020 3:49 AM [facility] Comment: Non GFR Calc Starting 05/19/2018, serum creatinine based estimated GFR (eGFR) will be calculated using the Chronic Kidney Disease Epidemiology Collaboration (CKD-EPI) equation. GFR Estimate If Black >90 >60 mL/min/{1. 73_m2} 01/11/2020 3:49 AM [facility] Comment: GFR Calc Starting 05/19/2018, serum creatinine based estimated GFR (eGFR) will be calculated using the Chronic Kidney Disease Epidemiology Collaboration (CKD-EPI) equation. Calcium 8.6 8.5 - 10.1 mg/dL 01/11/2020 3:49 AM [facility] Bilirubin Total 0.7 0.2 - 1.3 mg/dL 01/11/2020 3:49 AM [facility] Albumin 3.5 3.4 - 5.0 g/dL 01/11/2020 3:49 AM [facility] Protein Total 7.4 6.8 - 8.8 g/dL 01/11/2020 3:49 AM [facility] Alkaline Phosphatase 66 40 - 150 U/L 01/11/2020 3:49 AM [facility] ALT 35 0 - 70 U/L 01/11/2020 3:49 AM [facility] AST 16 0 - 45 U/L 01/11/2020 3:49 AM [facility] Comment: Specimen is hemolyzed which can falsely elevate AST. Analysis of a non-hemolyzed specimen may result in a lower value. Blood specimen (specimen) 01/11/2020 2:48 AM CDT 01/11/2020 3:01 AM CDT Eric Jordan MD LAB - BLOOD ORDERABL ES [facility] [address] [address], [facility] [phone] from Last 3 Months or Most Recently Relevant to Health Maintenance Care Teams Hand Paster Relationship Specialty Start Date End Date Neto Baez [address] [address] PCP - General Family Practice 01/11/20
--- OUTSIDE RECORDS SUMMARY | 2023-10-20 08:43 | XMS_ITS | Clinical Summary ---
Author Name Unknown Organization [place] Address [address] [place] [address] Care Team Providers Care Public Information Officer Name Role Phone Sasha, Neto Encarnacion Primary Care Provider Allergies Active Allergy Reactions Criticality Noted Date Comments Sulfa Antibiotics Anaphylaxis,Swelling High 12/15/19 Medications Medication Sig Dispensed Refills Start Date End Date Status omeprazole 20 MG tablet Take 20 mg by mouth daily Active fluticasone (FLONASE) 50 MCG/ACT nasal spray [place] 1 spray into both nostrils daily Active [...] 04/04/1999 GLUCOSE 01/10/2023 01/11/2020, 12/14/2018 COVID-19 Vaccine ( season) 2023 02/19/2022, 08/21/2021, 01/26/2021, Additional history exists PHQ-2 (once per calendar year) 2023 04/25/2020, 01/08/2019, 12/29/2018, Additional history exists INFLUENZA VACCINE (Season Ended) 2024 03/12/2022, 03/02/2021, 03/15/2019, Additional history exists COLONOSCOPY 06/09/2029 06/09/2019 COLORECTAL [...] this topic Medical Devices Implanted Type Area Community Services Manager Device Identifier Shelf Expiration Date Model / Serial / Lot Stent Ureteral Polaris Ultra [id number] Implanted:Qty: 1 on 12/18/2018 by Cuco Rapp MD at [facility] Stent Right: Ureter [employer] 07/19/2021 [id number] / / [id number] Procedures Procedure Name Priority Date/Time Associated Diagnosis Comments COMPREHENSIVE METABOLIC PANEL STAT 01/11/2020 2:48 AM CDT from Last 3 Months or Most Recently Relevant to Health Maintenance Results * (ABNORMAL) Comprehensive metabolic panel (01/11/2020 2:48 AM CDT) Sodium 140 133 - 144 mmol/L 01/11/2020 3:49 AM [facility] Potassium 3.7 3.4 - 5.3 mmol/L 01/11/2020 3:49 AM [facility] Comment:Specimen slightly he molyzed, potassium may be falsely elevated Chloride 109 94 - 109 mmol/L 01/11/2020 3:49 AM [facility] Carbon Dioxide 27 20 - 32 mmol/L 01/11/2020 3:49 AM [facility] Anion Gap 4 3 - 14 mmol/L 01/11/2020 3:49 AM [facility] Glucose 132(H) 70 - 99 mg/dL 01/11/2020 3:49 AM [facility] Urea Nitrogen 14 7 - 30 mg/dL 01/11/2020 3:49 AM [facility] Creatinine 1.02 0.66 - 1.25 mg/dL 01/11/2020 3:49 AM [facility] GFR Estimate 82 >60 mL/min/{1. 73_m2} 01/11/2020 3:49 AM [facility] Comment: Non GFR Calc Starting 05/19/2018, serum creatinine based estimated GFR (eGFR) will be calculated using the Chronic Kidney Disease Epidemiology Collaboration (CKD-EPI) equation. GFR Estimate If Black >90 >60 mL/min/{1. 73_m2} 01/11/2020 3:49 AM [facility] Comment: GFR Calc Starting 05/19/2018, serum creatinine based estimated GFR (eGFR) will be calculated using the Chronic Kidney Disease Epidemiology Collaboration (CKD-EPI) equation. Calcium 8.6 8.5 - 10.1 mg/dL 01/11/2020 3:49 AM [facility] Bilirubin Total 0.7 0.2 - 1.3 mg/dL 01/11/2020 3:49 AM [facility] Albumin 3.5 3.4 - 5.0 g/dL 01/11/2020 3:49 AM [facility] Protein Total 7.4 6.8 - 8.8 g/dL 01/11/2020 3:49 AM [facility] Alkaline Phosphatase 66 40 - 150 U/L 01/11/2020 3:49 AM [facility] ALT 35 0 - 70 U/L 01/11/2020 3:49 AM [facility] AST 16 0 - 45 U/L 01/11/2020 3:49 AM [facility] Comment: Specimen is hemolyzed which can falsely elevate AST. Analysis of a non-hemolyzed specimen may result in a lower value. Blood specimen (specimen) 01/11/2020 2:48 AM CDT 01/11/2020 3:01 AM CDT Eric Jordan MD LAB - BLOOD ORDERABL ES [facility] [address] [address], [facility] [phone] from Last 3 Months or Most Recently Relevant to Health Maintenance Care Teams Public Information Officer Relationship Specialty Start Date End Date Neto Baez [address] [address] PCP - General Family Practice 01/11/20
--- OUTSIDE RECORDS SUMMARY | 2023-10-20 08:44 | XMS_ITS | Encounter Summary ---
Author Name Unknown Organization [place] Address [address] [place] [address] Care Team Providers Care Executive Legal Secretary Name Role Phone Neto Baez Primary Care Provider + [phone] Timo Muniz MD Unavailable [phone] Encounter Details Date Type Department Care [...] documented as of this encounter Care Teams Executive Legal Secretary Relationship Specialty Start Date End Date Neto Baez [address] [address] PCP - General Family Practice 01/11/20 Timo Muniz MD [address] [place] [address] Assigned Surgical Provider 07/02/20 documented as of this encounter
--- OUTSIDE RECORDS SUMMARY | 2023-10-20 08:44 | XMS_ITS | Clinical Summary ---
Author Name Unknown Organization [facility] Address [place], [place] [address] Care Team Providers Care Door Framer Name Role Phone Emery Law MD Unavailable [phone] Pcp, No Primary Care Provider Unavailabl e [...] Active Problems Problem Noted Date Diagnosed Date Family history of Fuchs' corneal dystrophy 10/12 History of iritis 11/06/2021 Photopsia 04/10/2020 Visual disturbance 04/10/2020 Presbyopia 02/24/2020 Regular astigmatism, bilateral 02/24/2020 Myopia, bilateral 02/24/2020 Crohn's disease 12/14/2015 Chronic iritis, bilateral 05/19/2014 Vitamin D deficiency 09/02/2013 Mild intermittent asthma 10/09/2006 Allergic rhinitis, cause unspecified 10/09/2006 Encounters Date Type Department Care Team Description 10/13/2023 8:30 AM CDT Office Visit [facility] [address] [place] [address] Mac Avila, OD Eye Exam 10/13/2023 Travel from Last 3 Months Immunizations Name Administration [...] Comments Blood Pressure 114/80 07/13/2018 2:02 PM CHECK [facility]IEWER Pulse 94 07/13/2018 2:02 PM CHECK VIEWER Temperature 37 ??C (98.6 ??F) 07/13/2018 2:02 PM CHECK [facility]ER Respiratory Rate 18 07/13/2018 2:02 PM CHECK [facility]ER Oxygen Saturation 97% 07/13/2018 2:02 PM CHECK [facility]IEWER Inhaled Oxygen Concentration - - Weight 114.3 kg (252 lb) 07/13/2018 2:02 PM [facility] Height 181.3 cm (5' 11.38) 05/29/2018 9:[address] Body Mass Index 34.78 05/29/2018 9:14 AM CHECK [facility] Plan of Treatment Health Maintenance Due Date Last Done Comments HIV for age 15-65 02/01/1980 Zoster (shingles) series for age 50+ (1 of 2) 2015 Depression screening for age 12+ 02/04/2019 02/04/2018, 01/06/2017, 12/14/2015, Additional history exists BMI (ht and wt on same day) for age 18+ 05/29/2019 05/29/2018, 02/04/2018, 10/21/2016, Additional history exists Tetanus booster 12/15/2019 12/14/2009, 04/26/1997 Lipids for age 45-75 02/04/2023 02/04/2018, 01/06/2017, 12/14/2015, Additional history exists COVID-19 vaccine series (2022-24 season) 2023 12/16/2022, 02/19/2022, 08/21/2021, Additional history exists Influenza for age 50-64 [...] Procedure Name Priority Date/Time Associated Diagnosis Comments SCAN-COLONOSCOPY 07/04/2021 7:30 AM CHECK [facility]ER LIPID PANEL Routine 02/04/2018 2:50 PM CDT Lipid screening ANTI HCV Routine 09/02/2013 9:15 AM CDT Need for hepatitis C screening test from Last 3 Months or Most Recently Relevant to Health Maintenance Results * SCAN-COLONOSCOPY (07/04/2021 7:30 AM CHECK VIEWER) Narrative Procedure Note Emery Law MD - 07/04/2021 6:35 AM CST [facility] [address] [place] [address], [address], [place] [address] Patient Name: Jackson Guzman Gender: Male Exam Date: 07/04/2021 Visit Number: [id number] Age: 56 Years Date of : 1965 Attending MD: Emery Law MD Medical Record#: [id number] Procedure: Colonoscopy Indications: Crohn's disease Surveillance Referring MD: Referral Self Primary MD: Neto Baez MD Medications: Admitting Medications: 0.9% Normal Saline at TKO Intra Procedure Medications: Patient received monitored anesthesia [...] Performed D: Performed Electronically signed by: Yuriy Sue [place] [address] Orders Instruction(s)/Education: Instruction/Education Timeframe Assessment Colon Polyps [...] - 199 mg/dL 02/04/2018 8:01 PM CDT [facility] Your Policy Manager-[facility] TRIGLYCERIDES 349(H) <150 mg/dL 02/04/2018 8:01 PM CDT [facility] HDL CHOLESTEROL 49 >40 mg/dL 8 8:01 PM CDT [facility] NON-HDL CHOLESTEROL 167(H) <145 mg/dl 02/04/2018 8:01 PM CDT [facility] CHOL/HDL RATIO 4.41 <4.50 02/04/2018 8:01 PM CDT [facility] LDL CHOLESTEROL 97 <=130 mg/dL 02/04/2018 8:01 PM CDT [facility] PROVIDER ORDERED STATUS RANDOM 02/04/2018 8:01 PM CDT [facility] Blood BLOOD SPECIMEN / Unknown Venipuncture / Unknown 02/04/2018 2:50 PM CDT 02/04/2018 2:50 PM CDT Juan Luis Olivas DO CHEMISTRY [facility] [address] [place] [address], [place] * ANTI HCV [45558.2] (09/02/2013 9:15 AM CDT) ANTI HCV Non-reacti ve [facility] Blood specimen (specimen) BLOOD SPECIMEN / Unknown 09/02/2013 9:15 AM CDT 09/02/2013 9:06 AM CDT Juan Luis Olivas DO SEND OUTS [facility] [place]NAL ZIP [address] [place] [address] from Last 3 Months or Most Recently Relevant to Health Maintenance Advance Directives Documents on File Type Date Recorded Patient Surgical Elastic Knitter Expl anation Healthcare Directive 09/18/2009 [facility] are Directive, 09-18-09 Care Teams Door Framer Relationship Specialty Start Date End Date Pcp, No . PCP - General 02/22/20 Emery Law MD [address] [facility] [address] [place] [address] Gastroenterology 09/02/13
--- OUTSIDE RECORDS SUMMARY | 2023-10-20 08:44 | XMS_ITS | Encounter Summary ---
Author Name Unknown Organization [place] Address [address] [place] [address] Care Team Providers Care Biztalk Architect Name Role Phone Neto Baez Primary Care Provider + [phone] Timo Muniz MD Unavailable [phone] Encounter Details Date Type Department Care [...] documented as of this encounter Care Teams Biztalk Architect Relationship Specialty Start Date End Date Neto Baez [address] [address] PCP - General Family Practice 01/11/20 Timo Muniz MD [address] [place] [address] Assigned Surgical Provider 07/02/20 documented as of this encounter
--- OUTSIDE RECORDS SUMMARY | 2023-10-20 08:44 | XMS_ITS | Encounter Summary ---
Author Name Unknown Organization [place] Address [address] [place] [address]. [place] [address] Care Team Providers Care Flowers Salesperson Name Role Phone Neto Baez Primary Care Provider + [phone] Timo Muniz MD Unavailable [phone] Encounter Details Date Type Department Care Team (Late st Contact Info) Description 01/25/2021 [facility] Medical Advice [facility] [address] [place] [address] Cuco Rapp MD [address] [id number] Social History Tobacco Use Types Packs/Day Years [...] documented as of this encounter Care Teams Flowers Salesperson Relationship Specialty Start Date End Date Neto Baez [address] [address] PCP - General Family Practice 01/11/20 Timo Muniz MD [address] [place] [address] Assigned Surgical Provider 07/02/20 documented as of this encounter
--- OUTSIDE RECORDS SUMMARY | 2023-10-20 08:44 | XMS_ITS | Encounter Summary ---
Author Name Unknown Organization [place] Address [address] [place] [address]. [place] [address] Care Team Providers Care Manager Pharmaceutical Name Role Phone Juan Luis Olivas MD Primary Care Provider [phone] Neto Baez Primary Care Provider + [phone] Cuco Rapp MD Unavailable [phone] Timo Muniz MD Unavailable [phone] Reason for Visit * Reason Onset Date Comments Appointment 12/14/2018 Sooner appointme nt Encounter Details Date Type Department Care Team (Late st Contact Info) Description 12/14/2018 [facility] [address] [place] [address] System, Provider Not In Appointment (Sooner appointment) Social History Tobacco Use Types Packs/Day Years Used Date Smoking Tobacco: Never Assessed Sex and Gender Information Value Date Recorded Sex Assigned at Not on file Gender Identity Not on file Sexual Orientation Not on file documented as of this encounter Miscellaneous Notes * Telephone Encounter - Frannie Brown - 12/14/2018 4:54 PM CDT [facility] Phone Message May a detailed message be left on voicemail: yes Reason for Call: Other: Pt is needing to schedule an appointment at [facility] to be seen for a kidney stone. [...] on filedocumented in this encounter Care Teams Manager Pharmaceutical Relationship Specialty Start Date End Date Juan Luis Olivas MD PCP - General Family Practice 12/14/18 01/10/20 Neto Baez [address] [address] PCP - General Family Practice 01/11/20 Cuco Rapp MD [address] [address] Assigned Surgical Provider 03/24/20 Timo Muniz MD [address] [place], [place] [address] Assigned Surgical Provider 07/02/20 documented as of this encounter
--- OUTSIDE RECORDS SUMMARY | 2023-10-20 08:44 | XMS_ITS | Encounter Summary ---
Author Name Unknown Organization [place] Address [address] [place] [address] Care Team Providers Care Cruller Maker Name Role Phone Neto Baez Primary Care Provider + [phone] Timo Muniz MD Unavailable [phone] Encounter Details Date Type Department Care [...] documented as of this encounter Care Teams Cruller Maker Relationship Specialty Start Date End Date Neto Baez [address] [address] PCP - General Family Practice 01/11/20 Timo Muniz MD [address] [place] [address] Assigned Surgical Provider 07/02/20 documented as of this encounter
== END 2023-10-20 08:10 | disposition home or self-care (01) ==
PROVIDERS: PCP Internal Medicine; Visit Provider Internal Medicine
DX: K50.90 Crohn's disease, unspecified, without complications (principal); Z80.42 Family history of malignant neoplasm of prostate; Z86.39 Personal history of other endocrine, nutritional and metabolic disease; Z11.1 Encounter for screening for respiratory tuberculosis; Z12.5 Encounter for screening for malignant neoplasm of prostate; Z13.21 Encounter for screening for nutritional disorder
CPT/HCPCS: 82306; 86480; G0103

== ENCOUNTER 2023-10-30 07:36 | Day surgery (SDC) | payer BC, SELFPAY ==
--- OUTSIDE RECORDS SUMMARY | 2023-10-30 07:37 | XMS_ITS | Clinical Summary ---
Author Organization [place] Address [address] [place] [address] Care Team Providers Care Serging Machine Operator Automatic Name Role Phone Sasha, Neto Shashank Primary Care Provider [phone] Allergies Active Allergy Reactions Criticality Noted Date Comments Sulfa Antibiotics Anaphylaxis,Swelling High 12/15/19 Medications Medication Sig Dispensed Refills Start Date End Date Status omeprazole 20 MG tablet Take 20 mg by mouth daily Active fluticasone (FLONASE) 50 MCG/ACT nasal spray [place] 1 spray into both nostrils daily Active [...] this topic Medical Devices Implanted Type Area Rehabilitation Engineer Device Identifier Shelf Expiration Date Model / Serial / Lot Stent Ureteral Polaris Ultra [id number] Implanted:Qty: 1 on 12/18/2018 by Cuco Rapp MD at [facility] Stent Right: Ureter [employer] 07/19/2021 [id number] / / [id number] Procedures Procedure Name Priority Date/Time Associated Diagnosis Comments COMPREHENSIVE METABOLIC PANEL STAT 01/11/2020 2:48 AM CDT from Last 3 Months or Most Recently Relevant to Health Maintenance Results * (ABNORMAL) Comprehensive metabolic panel (01/11/2020 2:48 AM CDT) Sodium 140 133 - 144 mmol/L 01/11/2020 3:49 AM [facility] Potassium 3.7 3.4 - 5.3 mmol/L 01/11/2020 3:49 AM [facility] Comment:Specimen slightly he molyzed, potassium may be falsely elevated Chloride 109 94 - 109 mmol/L 01/11/2020 3:49 AM [facility] Carbon Dioxide 27 20 - 32 mmol/L 01/11/2020 3:49 AM [facility] Anion Gap 4 3 - 14 mmol/L 01/11/2020 3:49 AM [facility] Glucose 132(H) 70 - 99 mg/dL 01/11/2020 3:49 AM [facility] Urea Nitrogen 14 7 - 30 mg/dL 01/11/2020 3:49 AM [facility] Creatinine 1.02 0.66 - 1.25 mg/dL 01/11/2020 3:49 AM [facility] GFR Estimate 82 >60 mL/min/{1. 73_m2} 01/11/2020 3:49 AM T [facility] Comment: Non GFR Calc Starting 05/19/2018, serum creatinine based estimated GFR (eGFR) will be calculated using the Chronic Kidney Disease Epidemiology Collaboration (CKD-EPI) equation. GFR Estimate If Black >90 >60 mL/min/{1. 73_m2} 01/11/2020 3:49 AM T [facility] Comment: GFR Calc Starting 05/19/2018, serum creatinine based estimated GFR (eGFR) will be calculated using the Chronic Kidney Disease Epidemiology Collaboration (CKD-EPI) equation. Calcium 8.6 8.5 - 10.1 mg/dL 01/11/2020 3:49 AM [facility] Bilirubin Total 0.7 0.2 - 1.3 mg/dL 01/11/2020 3:49 AM [facility] Albumin 3.5 3.4 - 5.0 g/dL 01/11/2020 3:49 AM [facility] Protein Total 7.4 6.8 - 8.8 g/dL 01/11/2020 3:49 AM [facility] Alkaline Phosphatase 66 40 - 150 U/L 01/11/2020 3:49 AM [facility] ALT 35 0 - 70 U/L 01/11/2020 3:49 AM [facility] AST 16 0 - 45 U/L 01/11/2020 3:49 AM [facility] Comment: Specimen is hemolyzed which can falsely elevate AST. Analysis of a non-hemolyzed specimen may result in a lower value. Blood specimen (specimen) 01/11/2020 2:48 AM CDT 01/11/2020 3:01 AM CDT Eric Jordan MD LAB - BLOOD ORDERABL ES [facility] [address], [place] [address], [facility] [phone] from Last 3 Months or Most Recently Relevant to Health Maintenance Care Teams Serging Machine Operator Automatic Relationship Specialty Start Date End Date Neto Baez [address] [address] PCP - General Family Practice 01/11/20
--- OUTSIDE RECORDS SUMMARY | 2023-10-30 07:38 | XMS_ITS | Encounter Summary ---
Author Organization [place] Address [address] [place] [address] Care Team Providers Care Felt Puller Name Role Phone Neto Baez Primary Care Provider + [phone] Timo Muniz MD Unavailable [phone] Encounter Details Date Type Department Care [...] documented as of this encounter Care Teams Felt Puller Relationship Specialty Start Date End Date Neto Baez [address] [id number] PCP - General Family Practice 01/11/20 Timo Muniz MD [address] [place] [address] Assigned Surgical Provider 07/02/20 documented as of this encounter
--- OUTSIDE RECORDS SUMMARY | 2023-10-30 07:38 | XMS_ITS | Referral Summary ---
Author Organization [place] Address [address] [place] [address] Care Team Providers Care Orthopedics Pediatric Physician Name Role Phone Sasha, Neto Encarnacion Primary Care Provider [phone] Allergies Active Allergy Reactions Criticality Noted Date Comments Sulfa Antibiotics Anaphylaxis,Swelling High 12/15/19 Medications Medication Sig Dispensed Refills Start Date End Date Status omeprazole 20 MG tablet Take 20 mg by mouth daily Active fluticasone (FLONASE) 50 MCG/ACT nasal spray [place] 1 spray into both nostrils daily Active [...] on file Medical Devices Implanted Type Area Manager Agricultural Device Identifier Shelf Expiration Date Model / Serial / Lot Stent Ureteral Polaris Ultra [id number] Implanted:Qty: 1 on 12/18/2018 by Cuco Rapp MD at [facility] Stent Right: Ureter [employer] 07/19/2021 [id number] / / [id number] Procedures Procedure Name Priority Date/Time Associated Diagnosis Comments COMPREHENSIVE METABOLIC PANEL STAT 01/11/2020 2:48 AM CDT from Last 3 Months or Most Recently Relevant to Health Maintenance Results * (ABNORMAL) Comprehensive metabolic panel (01/11/2020 2:48 AM CDT) Sodium 140 133 - 144 mmol/L 01/11/2020 3:49 AM CDT [facility] Potassium 3.7 3.4 - 5.3 mmol/L 01/11/2020 3:49 AM T [facility] Comment:Specimen slightly he molyzed, potassium may be falsely elevated Chloride 109 94 - 109 mmol/L 01/11/2020 3:49 AM CDT [facility] Carbon Dioxide 27 20 - 32 mmol/L 01/11/2020 3:49 AM T [facility] Anion Gap 4 3 - 14 mmol/L 01/11/2020 3:49 AM T [facility] Glucose 132(H) 70 - 99 mg/dL 01/11/2020 3:49 AM CDT [facility] Urea Nitrogen 14 7 - 30 mg/dL [...] Jordan MD LAB - BLOOD ORDERABL ES [facility] [address] [address], [facility] [phone] from Last 3 Months or Most Recently Relevant to Health Maintenance Care Teams Orthopedics Pediatric Physician Relationship Specialty Start Date End Date Neto Baez [address] [address] PCP - General Family Practice 01/11/20
--- OUTSIDE RECORDS SUMMARY | 2023-10-30 07:38 | XMS_ITS | Encounter Summary ---
Author Organization [facility] Address [address] [place] [address]. [place] [address] Care Team Providers Care Toy Stuffer Name Role Phone Neto Baez Primary Care Provider + [phone] Timo Muniz MD Unavailable [phone] Encounter Details Date Type Department Care Team (Late st Contact Info) Description 01/25/2021 [facility] [address] [place] [address] Cuco Rapp MD [address] [id number] Social History Tobacco Use Types Packs/Day Years [...] documented as of this encounter Care Teams Toy Stuffer Relationship Specialty Start Date End Date Neto Baez [address] [address] PCP - General Family Practice 01/11/20 Timo Muniz MD [address] [place] [address] Assigned Surgical Provider 07/02/20 documented as of this encounter
--- OUTSIDE RECORDS SUMMARY | 2023-10-30 07:38 | XMS_ITS | Encounter Summary ---
Author Organization [facility] Address [address] [place] [address]. [place] [address] Care Team Providers Care Sales Stock Associate Name Role Phone Juan Luis Olivas MD Primary Care Provider [phone] Neto Baez Primary Care Provider + [phone] Cuco Rapp MD Unavailable [phone] Timo Muniz MD Unavailable [phone] Reason for Visit * Reason Onset Date Comments Appointment 12/14/2018 Sooner appointme nt Encounter Details Date Type Department Care Team (Late st Contact Info) Description 12/14/2018 [facility] [address] [place] [address] System, Provider Not In Appointment [...] - 12/14/2018 4:54 PM CDT [facility] Phone Message May a detailed message be left on voicemail: yes Reason for Call: Other: Pt is needing to schedule an appointment at [facility] to be seen for a kidney stone. [...] on filedocumented in this encounter Care Teams Sales Stock Associate Relationship Specialty Start Date End Date Juan Luis Olivas MD PCP - General Family Practice 12/14/18 01/10/20 Neto Baez [address] [address] PCP - General Family Practice 01/11/20 Cuco Rapp MD 6363 [facility] [address] [address] Assigned Surgical Provider 03/24/20 Timo Muniz MD [address] [place], [place] [phone] Assigned Surgical Provider 07/02/20 documented as of this encounter
--- OUTSIDE RECORDS SUMMARY | 2023-10-30 07:38 | XMS_ITS | Encounter Summary ---
Author Organization [facility] Address [address] [place] [address] Care Team Providers Care Furnace Door Tender Name Role Phone Neto Baez Primary Care Provider + [phone] Timo Muniz MD Unavailable [phone] Encounter Details Date Type Department Care [...] documented as of this encounter Care Teams Furnace Door Tender Relationship Specialty Start Date End Date Neto Baez [address] [phone] PCP - General Family Practice 01/11/20 Timo Muniz MD [address] [place] [address] Assigned Surgical Provider 07/02/20 documented as of this encounter
--- OUTSIDE RECORDS SUMMARY | 2023-10-30 07:38 | XMS_ITS | Encounter Summary ---
Author Organization [facility] Address [address] [place] [address] Care Team Providers Care Seed Tester Name Role Phone Neto Baez Primary Care Provider + [phone] Timo uMniz MD Unavailable [phone] Encounter Details Date Type Department Care [...] documented as of this encounter Care Teams Seed Tester Relationship Specialty Start Date End Date Neto Baez [address] [phone] PCP - General Family Practice 01/11/20 Timo Muniz MD [address] [place] [address] Assigned Surgical Provider 07/02/20 documented as of this encounter
--- OUTSIDE RECORDS SUMMARY | 2023-10-30 07:39 | XMS_ITS | Clinical Summary ---
Author Organization [facility] Address [place], [place] [address] Care Team Providers Care Records Section Supervisor Name Role Phone Emery Law MD Unavailable [phone] Pcp, No Primary Care Provider Unavailabl e [...] Encounters Date Type Department Care Team Description 10/20/2023 Lab Requisition [facility] [phone] Deborah Sin MD 10/13/2023 8:30 AM CDT Office Visit [facility] [address] [place] [address] Mac Avila, OD Eye Exam 10/13/2023 Travel [...] Comments Blood Pressure 114/80 07/13/2018 2:02 PM TACKING MACHINE OPERATOR Pulse 94 07/13/2018 2:02 PM TACKING MACHINE OPERATOR Temperature 37 ??C (98.6 ??F) 07/13/2018 2:02 PM TACKING MACHINE OPERATOR Respiratory Rate 18 07/13/2018 2:02 PM TACKING MACHINE OPERATOR Oxygen Saturation 97% 07/13/2018 2:02 PM TACKING MACHINE OPERATOR Inhaled Oxygen Concentration - - Weight 114.3 kg (252 lb) 07/13/2018 2:02 PM TACKING MACHINE OPERATOR Height 181.3 cm (5' 11.38) 05/29/2018 9:[address] Body Mass Index 34.78 05/29/2018 9:14 AM TACKING MACHINE OPERATOR Plan of Treatment Health Maintenance Due [...] Procedure Name Priority Date/Time Associated Diagnosis Comments QFT MITOGEN PERFORMABLE Routine 10/20/2023 9:06 AM CDT QFT TB2 PERFORMABLE Routine 10/20/2023 9 :06 AM CDT QFT TB1 PERFORMABLE Routine 10/20/2023 9 :06 AM CDT QUANTIFERON TB GOLD PLUS Routine 10/20/2023 9:06 AM CDT QUANTIFERON TB GOLD PLUS Routine 10/20/2023 9:06 AM CDT SCAN-COLONOSCOPY 07/04/2021 7:30 AM TACKING MACHINE OPERATOR LIPID PANEL Routine 02/04/2018 2:50 PM CDT Lipid screening ANTI HCV Routine 09/02/2013 9:15 AM CDT Need for hepatitis C screening test from Last 3 Months or Most Recently Relevant to Health Maintenance Results * QFT MITOGEN PERFORMABLE (10/20/2023 9:06 AM CDT) MITOGEN 9.28 IU/mL 10/22/2023 12:36 PM CDT [facility] Blood BLOOD SPECIMEN / Unknown Client Collect / Unknown 10/20/2023 9:06 AM CDT 10/20/2023 4:07 PM CDT Deborah Sin MD CHEMISTRY Performing Organization Address City/[facility]/ZIP Co de Phone Number [facility] [address] [address], [place] * QFT TB2 PERFORMABLE (10/20/2023 9:06 AM CDT) TB2 0.01 IU/mL 10/22/2023 12:36 PM CDT [facility] Blood BLOOD SPECIMEN / Unknown Client Collect / Unknown 10/20/2023 9:06 AM CDT 10/20/2023 4:07 PM CDT Deborah Sin MD CHEMISTRY Performing Organization Address City/[facility]/ZIP Co de Phone Number [facility] [address] [place], [place] [id number], [place] * QFT TB1 PERFORMABLE (10/20/2023 9:06 AM CDT) TB1 0.01 IU/mL 10/22/2023 12:36 PM CDT [facility] Blood BLOOD SPECIMEN / Unknown Client Collect / Unknown 10/20/2023 9:06 AM CDT 10/20/2023 4:07 PM CDT Deborah Sin MD CHEMISTRY Performing Organization Address City/[facility]/ZIP Co de Phone Number [facility] [address] [place] [address], [place] * QUANTIFERON TB GOLD PLUS (10/20/2023 9:06 AM CDT) QFTP NIL 0.01 10/22/2023 12:55 PM CDT [facility] TB1 0.01 IU/mL 10/22/2023 12:55 PM CDT [facility] TB2 0.01 IU/mL 10/22/2023 12:55 PM CDT [facility] MITOGEN 9.28 IU/mL 10/22/2023 12:55 PM CDT [facility] QFTP TB AG1 - NIL 0.00 024 12:55 PM CDT [facility] TB1-NIL % OF NIL 0 % 10/22/19 24 12:55 PM CDT [facility] QFTP TB AG2 - NIL 0.00 024 12:55 PM CDT [facility] TB2-NIL % OF NIL 0 % 10/22/19 24 12:55 PM CDT [facility] QFTP MITOGEN - NIL 9.27 2023 12:55 PM CDT [facility] QFTP QUANTIFERON INTERPRETATION Negative Negative 10/22/2023 12:55 PM CDT [facility] Blood BLOOD SPECIMEN / Unknown Client Collect / Unknown 10/20/2023 9:06 AM CDT 10/20/2023 4:07 PM CDT Narrative [facility] - 10/22/2023 12:55 PM CDT M. tuberculosis infection not likely, but cannot be excluded in cases of immunosuppression. CAUTION: The performance of QuantiFERON-TB Gold Plus has not been evaluated in specimens from: - Individuals with impaired or altered immune factors (HIV infections, transplant patients, those receieving immunosuppressive drugs such as corticosteroids) and those with other clinical conditions (e.g., diabetes, hematological disorders). - Individuals younger than 17 years old. ??Refer to CDC website for testing recommendations in children 6-17 years old. - women Deborah Sin MD CHEMISTRY [facility] [address] [place] [address], * SCAN-COLONOSCOPY (07/04/2021 7:30 AM TACKING MACHINE OPERATOR) Narrative Procedure Note Emrey Law MD - 07/04/2021 6:35 AM CST [facility] [address], [address], [place] [address] Patient Name: Jackson Guzman Gender: Male Exam Date: 07/04/2021 Visit Number: [id number] Age: 56 Years Date of : 1965 Attending MD: Emery Law MD Medical Record#: [id number] Procedure: Colonoscopy Indications: Crohn's disease Surveillance Referring [...] signed by: Yuriy Sue [place] [address] Orders Instruction(s)/Education: Instruction/Education Timeframe Assessment Colon Polyps [...] - 199 mg/dL 02/04/2018 8:01 PM CD[address] [facility] TRIGLYCERIDES 349(H) <150 mg/dL 02/04/2018 8:01 PM CDT [facility] HDL CHOLESTEROL 49 >40 mg/dL 8 8:01 PM CDT [facility] NON-HDL CHOLESTEROL 167(H) <145 mg/dl 02/04/2018 8:[address] [facility] CHOL/HDL RATIO 4.41 <4.50 02/04/2018 8:01 PM CDT [facility] LDL CHOLESTEROL 97 <=130 mg/dL 02/04/2018 8:01 PM CDT [facility] PROVIDER ORDERED STATUS RANDOM 02/04/2018 8:01 PM CDT [facility] Blood BLOOD SPECIMEN / Unknown Venipuncture / Unknown 02/04/2018 2:50 PM CDT 02/04/2018 2:50 PM CDT Juan Luis Olivas DO CHEMISTRY [facility] [address] [place] [address], [place] * ANTI HCV [19706.2] (09/02/2013 9:15 AM CDT) ANTI HCV Non-reacti ve [facility] Blood specimen (specimen) BLOOD SPECIMEN / Unknown 09/02/2013 9:15 AM CDT 09/02/2013 9:06 AM CDT Juan Luis Olivas DO SEND OUTS [facility] INTERNAL ZIP [address] [place] [address] from Last 3 Months or Most Recently Relevant to Health Maintenance Advance Directives Documents on File Type Date Recorded Patient Guide Domestic Tour Expl anation Healthcare Directive 09/18/2009 [facility] are Directive, 09-18-09 Care Teams Records Section Supervisor Relationship Specialty Start Date End Date Pcp, No . PCP - General 02/22/20 Emery Law MD [address] [address] Gastroenterology 09/02/13
[2023-10-30 07:52] VITALS: BMI 31.5
[2023-10-30 08:20] VITALS: BP 150/89; PULSE 61; RESP 16; TEMP 36.6; O2SAT 97
[2023-10-30] MEDS: LACTATED RINGERS 1000 ML 1,000 ML 100 ML IV (08:24)
--- NOTE | 2023-10-30 09:15 | CRLHL7_ITS ---
For Patients: As a result of the Century Cures Act, medical imaging exams and procedure reports are released immediately into your electronic medical record. You may view this report before your referring provider. If you have questions, please contact your health care provider. INDICATION: Right ankle syndesmotic screw removal. TECHNIQUE: Intraoperative fluoroscopic spot films right ankle. FINDINGS: 19.6 seconds of fluoroscopy time was used. Two syndesmotic screws were removed Dictated by Stacie Suresh MD @ 11/03/2023 8:09:27 AM (Electronically Signed)
[2023-10-30] MEDS: CEFAZOLIN 2 GM INJ IVP (11:33)
--- NOTE | 2023-10-30 11:43 | SUR.OPER ---
PATIENT QUESTIONS ANSWERED SATISFACTORILY PREOPERATIVELY.? PATIENT BROUGHT TO OR #1 PER CART.? Patient positioned supine on OR #1 bed.? The perioperative?team supported arms bilaterally on arm boards.? Final approval of positioning by surgeon.?
--- NOTE | 2023-10-30 12:02 | PM.ORPRC ---
Procedure Note Date of procedure: 10/30/23 Procedure: PREOPERATIVE DIAGNOSIS: Right ankle fracture ORIF with retained hardware POSTOPERATIVE DIAGNOSIS: Right ankle fracture ORIF with retained hardware SURGEON: Mark De Luna MD SCHOOL CROSSING GUARD SUPERVISOR: NAN Bee NAME OF OPERATION: Hardware removal deep ANESTHESIA: Local plus monitored anesthesia care ESTIMATED BLOOD LOSS: 5 mL COMPLICATIONS: None SPECIMENS: None DRAINS: None PREOPERATIVE ANTIBIOTICS: Ancef 2 gram INDICATIONS: The patient is a 58-year-old who sustained an ankle fracture. ORIF was completed previously. They present today for elective syndesmotic screw removal. The risks, benefits and expected outcomes were discussed in detail. These included but were not limited to: Infection, bleeding, injury to blood vessel or nerve, venous thromboembolism. All questions were answered to their satisfaction. Use of an video library assistant was necessary throughout the case for patient positioning and safety, soft tissue retraction and closure. PROCEDURE: The patient was placed supine on the operating room table. Local anesthesia was administered. The lower extremity was prepped and draped in the usual sterile fashion. IV sedation was administered. The image intensifier was brought in. The proximal interlocking screw was broken. We utilized our previously placed incision over the lateral aspect of the fibula. Subcutaneous dissection was bluntly taken to the distal screw. The screw head was exposed and the screw was removed intact. Attention was then turned to the medial side of the tibia. We localized where the tip of the screw would be with the image intensifier. We then injected the skin with local anesthetic. An incision was made over the anteromedial face of the tibia. Subcutaneous dissection was bluntly taken to area where we felt the tip of the screw was. A 0.062 in K-wire was placed, using the image intensifier to locate the tip of the screw. We then used the 4.5 mm reamer over the K-wire. We removed the K-wire and localize the tip of the screw. We used the reamer further into the screw shank. We then use the broken screw removal tanker truck driver to back the screw shaft out of the tibia. The image intensifier was used to obtain an AP, mortise and lateral view of the ankle, showing the screws have been removed. The wound was irrigated with normal saline. The video library assistant closed soft tissue with a 3-0 Vicryl deep and a 3-0 nylon in the skin in a simple interrupted fashion. The video library assistant placed a soft dressing. Sponge and needle counts were correct x 2. The patient tolerated the procedure well. There were no apparent complications. They were carefully transferred to the hospital bed and taken to the postanesthesia care unit in satisfactory condition. PLAN: The patient will be discharged to home. They may weightbear as tolerates. Ice, elevation and Tylenol will be used as needed for pain. They will follow up in the office in 2 weeks for a wound check.
[2023-10-30 12:12] VITALS: BP 114/84; PULSE 72; RESP 16; TEMP 36; O2SAT 97
[2023-10-30 12:15] VITALS: BP 122/84; PULSE 73; RESP 16; O2SAT 99
--- NOTE | 2023-10-30 12:18 | W.ANESCHARGE ---
Anesthesia Charges Start Date/Time Anesthesia Start Date: 10/30/23 Anesthesia Start Time: 11:04 Stop Date/Time Anesthesia Stop Date: 10/30/23 Anesthesia Stop Time: 12:16
--- NOTE | 2023-10-30 12:19 | W.ANESCHARGE ---
Anesthesia Charges Start Date/Time Anesthesia Start Date: 10/30/23 Anesthesia Start Time: 11:04 Stop Date/Time Anesthesia Stop Date: 10/30/23 Anesthesia Stop Time: 12:16
[2023-10-30 12:41] VITALS: BP 148/97; PULSE 56; RESP 16; O2SAT 99
== END 2023-10-30 13:20 | disposition home or self-care (01) ==
PROVIDERS: PCP Internal Medicine; Visit Provider Orthopaedic Surgery
PROC: (CPT 20680; principal; 2023-10-30 09:15)
DX: Z47.2 Encounter for removal of internal fixation device (principal)
CPT/HCPCS: 20680; 01480; 73600; J0690; J1100; J2704; J3010; J7120

== ENCOUNTER 2023-11-19 15:30 | Outpatient (RCR) | payer BC, SELFPAY | END 2024-01-07 11:27 | disposition home or self-care (01) | PROVIDERS: PCP Internal Medicine; Visit Provider Orthopaedic Surgery | DX: Z98.890 Other specified postprocedural states (principal); Z51.89 Encounter for other specified aftercare | CPT/HCPCS: 97032; 97110; 97112; 97116; 97140; 97162 ==

== ENCOUNTER 2024-01-29 10:31 | Emergency (ER) | payer BC, SELFPAY ==
[2024-01-29 10:33] VITALS: RESP 28; TEMP 36.4; BMI 31.0
[2024-01-29 10:49] VITALS: O2SAT 100
[2024-01-29 10:50] VITALS: PULSE 90
--- NOTE | 2024-01-29 11:15 | CRLHL7_ITS ---
For Patients: As a result of the Century Cures Act, medical imaging exams and procedure reports are released immediately into your electronic medical record. You may view this report before your referring provider. If you have questions, please contact your health care provider. INDICATION: Left flank pain. TECHNIQUE: CT abdomen and pelvis without contrast. COMPARISON: None. FINDINGS: Lower chest: Unremarkable. Liver: Hepatic cyst in segment 4B. Scattered subcentimeter hypodense lesions, likely cysts Gallbladder and bile ducts: Post cholecystectomy. No biliary ductal dilation. Pancreas: Unremarkable. No mass or inflammation. Spleen: Unremarkable. Adrenal glands: Normal in size. No nodules. Kidneys: There is a 4 x 4 x 3 millimeter stone in the left mid ureter with mild left hydronephrosis. Nonobstructing nephroliths in the left kidney. GI tract: No obstruction. Normal appendix. Vasculature: Abdominal aorta is normal in caliber. Lymph nodes: No lymphadenopathy. Peritoneum/Abdominal Wall: Unremarkable. No sign of mass or infiltration. No free air or significant free fluid. Pelvis: Unremarkable. No pelvic masses. Bones: No acute or suspicious osseous lesions. IMPRESSION: There is a 4 x 4 x 3 millimeter stone in the left mid ureter with mild left hydronephrosis. Please note that all CT scans at this facility use dose modulation, iterative reconstruction, and/or weight-based dosing when appropriate to reduce radiation dose to as low as reasonably achievable. Dictated by Khushboo Vences MD @ 01/29/2024 12:05:47 PM (Electronically Signed)
--- NOTE | 2024-01-29 11:30 | ED_ITS ---
HPI - General Adult General Chief complaint: Flank Pain Stated complaint: Fainting Time Seen by Provider: 01/29/24 11:03 Source: patient Mode of arrival: ambulatory Limitations: no limitations History of Present Illness HPI narrative: Patient is a 58-year-old male with history of Crohn's disease, nephrolithiasis presenting to emergency department for left flank pain. He 1st noticed the pain this morning but has been gradually getting worse. Is on his left side in his mid flank region and radiates down to his groin. States is a sharp pain a cannot say for certain if it feels like his previous kidney stones. Has urinated today denies any dysuria or blood in his urine. Was having some associated nausea and did take a Zofran prior to arrival. Has not taking anything for pain yet and on the way to the emergency department he states his fingers tips started to become numb any felt lightheaded. The lightheadedness has improved right now but he still feels mildly lightheaded. Denies any dizziness. Denies headache, chest pain, shortness of breath, abdominal pain, diarrhea, constipation, fevers, chills. Previous abdominal surgeries include surgery to remove a kidney stone and cholecystectomy. Related Data Home Medications ?Medication ?Instructions ?Recorded ?Confirmed ascorbic acid (vitamin C) 250 mg 250 mg PO DAILY 09/05/22 11/12/23 tablet cholecalciferol (vitamin D3) 50 2,000 unit PO DAILY 09/05/22 11/12/23 mcg (2,000 unit) capsule multivitamin 1 tab PO QAM 09/05/22 11/12/23 infliximab 100 mg intravenous mg IV 06/23/23 11/12/23 solution fluticasone propionate 50 1 spray intranasal DAILY 07/09/23 11/12/23 mcg/actuation nasal spray,suspension Previous Rx's ?Medication ?Instructions ?Recorded Knee Scooter- Adult #1 ea 06/23/23 albuterol sulfate 90 mcg/actuation 2 - 4 puff inhalation Q4H PRN 07/07/23 aerosol inhaler shortness of breath or wheezing #6.7 grams sildenafil (pulm.hypertension) 20 60 mg (3 x 20 mg) PO ONCE PRN 10/20/23 mg tablet sexual activity #30 tabs omeprazole 20 mg capsule,delayed 20 mg PO DAILY #90 caps 10/21/23 release oxycodone-acetaminophen 5 mg-325 1 - 2 tab PO Q4-6H PRN pain #5 tabs 10/30/23 mg tablet (Percocet) ketorolac 10 mg tablet 10 mg PO Q6H PRN pain #20 tabs 01/29/24 ondansetron 4 mg disintegrating 4 mg PO Q6H #20 tabs 01/29/24 tablet oxycodone 5 mg tablet 5 mg PO Q6H PRN pain #12 tabs 01/29/24 tamsulosin 0.4 mg capsule 0.4 mg PO DAILY #10 caps 01/29/24 Allergies Allergy/AdvReac Type Severity Reaction Status Date / Time cigarette smoke Allergy Unknown Unknown Verified 11/12/23 10:54 dog dander Allergy Unknown Unknown Verified 11/12/23 10:54 grass pollen Allergy Unknown Unknown Verified 11/12/23 10:54 house dust Allergy Unknown Unknown Verified 11/12/23 10:54 pollen extracts Allergy Unknown Unknown Verified 11/12/23 10:54 Sulfa (Sulfonamide Allergy rash, lip Verified 11/12/23 10:54 Antibiotics) swelling Cat hair extract Allergy Unknown Unknown Uncoded 11/12/23 10:54 Chicken feathers Allergy Unknown Unknown Uncoded 11/12/23 10:54 Review of Systems Status of ROS: Reports: 10 or more systems reviewed and unremarkable except as noted in History and below [facility] Medical History History of pulmonary embolism ?Z86.711 - Personal history of pulmonary embolism (ICD-10) History of DVT of lower extremity ?Z86.718 - Personal history of other venous thrombosis and embolism (ICD-10) Liver lesion ?K76.9 - Liver disease, unspecified (ICD-10) History of nephrolithiasis (2019) ?Z87.442 - Personal history of urinary calculi (ICD-10) History of vitamin D deficiency ?Z86.39 - Personal history of other endocrine, nutritional and metabolic disease (ICD-10) History of hemorrhoids ?Z87.19 - Personal history of other diseases of the digestive system (ICD-10) Surgical History S/P hardware removal (10/30/23) ?Z98.890 - Other specified postprocedural states (ICD-10) History of open reduction and internal fixation (ORIF) procedure (06/24/23) ?Z98.890 - Other specified postprocedural states (ICD-10) History of umbilical hernia repair (2004) ?Z98.890 - Other specified postprocedural states (ICD-10) ?Z87.19 - Personal history of other diseases of the digestive system (ICD-10) History of tympanoplasty of left ear ?Z98.890 - Other specified postprocedural states (ICD-10) History of lithotripsy (2019) ?Z98.890 - Other specified postprocedural states (ICD-10) History of colonoscopy (07/04/21) ?Z98.890 - Other specified postprocedural states (ICD-10) History of cholecystectomy (01/17/20) ?Z90.49 - Acquired absence of other specified parts of digestive tract (ICD- 10) Family History Father Prostate cancer, Onset Age: 52 Social History Narrative: Patient lives with his in [place]. He works in [email or web address] for [employer]. He does not smoke. He rarely drinks alcohol. Has no recreational drug use. 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 Code status is full. What is your current living situation?: I presently have a place to live Problems where you live: no known problems Problems where you live details: n/a In the past 12 months, utilities in danger of being shut off: no In past 12 months, lack of transportation kept you from medical appts, meetings, work, or getting things needed for daily living: no In the past 12 mos, have been you worried that your food would run out before you had money to buy more?: never true In the past 12 mos, the food you bought just didn't last and you didn't have money to buy more?: never true Highest level of school completed/degree received: Bachelor's degree Smoking Status: Never smoker Do you use any of these nicotine containing products: None Second hand tobacco smoke exposure: No How often do you have a drink containing alcohol: monthly or less How many standard drinks containing alcohol do you have on a typical day: 1 or 2 How often do you have six or more drinks on one occasion: Never AUDIT-C Alcohol total score: 1 Non-prescribed substance use: denies use Caffeine: Yes (tea) How often does anyone, including family, friends and others, physically hurt you : never How often does anyone, including family, friends and others, insult or talk down to you: never How often does anyone, including family, friends and others, threaten you with harm: never How often does anyone, including family, friends and others, scream or curse at you: never Little interest or pleasure in doing things: not at all Feeling down, depressed, or hopeless: several days service: No Exam Narrative: Exam Narrative: Const: Well-nourished, Well-developed, in moderate distress Eyes: PERRL, no conjunctival injection, and symmetrical lids HENT: Atraumatic external nose and ears. Moist mucous membranes. Neck: Symmetric, trachea midline, No thyromegaly. CVS: RRR, No murmurs or gallops. Peripheral pulses 2+ and equal in all extremities RESP: Unlabored respiratory effort. Clear to auscultation bilaterally. GI: Nontender/Nondistended, No rebound or guarding. MSK:Extremities w/o deformity, Normal Active ROM Skin: Warm, Dry. No rashes or lesions. Neuro: Normal Muscle tone, No focal neurological deficits. Psych: Awake, Alert, & Oriented x3. Appropriate mood and affect. Const: Vital Signs, click to edit/add: Vital Signs - 24 hr 01/29/24 10:33 01/29/24 10:49 01/29/24 10:50 Temperature 97.6 F Pulse Rate [Right Pulse Oximeter] 90 Respiratory Rate 28 H Pulse Oximetry 100 Oxygen Delivery Me thod Room Air Course Vital Signs Vital signs: Initial Vital Signs Temperature 97.6 F 01/29/24 10:33 Temperature Source Temporal Artery Scan 01/29/24 10:33 Respiratory Rate 28 H 01/29/24 10:33 Vital Signs Temperature 97.6 F 01/29/24 10:33 Respiratory Rate 28 H 01/29/24 10:33 Temperature 97.6 F 01/29/24 10:33 Pulse Rate 90 01/29/24 10:50 Respiratory Rate 28 H 01/29/24 10:33 Pulse Oximetry 100 01/29/24 10:49 Oxygen Delivery Method Room Air 01/29/24 10:49 Medications Administered Medications: Discontinued Medications Generic Name Dose Route Start Last Admin Trade Name Fermín PRN Reason Stop Dose Admin Lactated Ringer's 1,000 mls @ 1,000 mls/hr 01/29/24 11:15 01/29/24 12:16 Lactated Ringers 1000 Ml IV 01/29/24 12:14 1,000 mls/hr .Q1H ONE Administration Ketorolac Tromethamine 15 mg 01/29/24 11:15 01/29/24 12:16 Ketorolac 15 Mg/Ml Inj IVP 01/29/24 11:16 15 mg ONCE ONE Administration Ondansetron HCl 4 mg 01/29/24 11:15 01/29/24 12:16 Ondansetron 2 Mg/Ml Inj IVP 01/29/24 11:16 4 mg ONCE ONE Administration Medical Decision Making MDM Narrative Medical decision making narrative: Patient is an 58-year-old male presenting for left flank pain. Considering his history most likely this is a kidney stone. Will do a non-con CT to better evaluate. Do not believe contrast is necessary as he has no abdominal pain and with the unilateral pain and few risk factors for AAA I believe that is less likely at this time. Seems unlikely to be muscle strain considering onset and description of the pain. With the numbness in the fingers less likely and hyperventilating and bilateral numbness in just the fingertips is not consistent with stroke symptoms. Will order CBC, urinalysis, CMP, Toradol and Zofran ordered for symptoms along with a L of fluid. Patient is feeling better with the medication. States pain is now tolerable. Lab work all returned showing no concerns of infection. There is blood in his urine breath consistent with his symptoms. No signs of UTI. Kidney function within normal limits. CT scan shows a 4 x 3 mm stone left mid ureter consistent with his symptoms. There is mild left hydronephrosis. This stone should be able to pass on its own based on the size by will discharge him with Toradol, oxycodone, Zofran, Flomax. He is agreeable to this plan. Lab Data Labs: Lab Results 01/29/24 01/29/24 Range/Units 11:37 12:05 WBC 11.41 H (4.50-11.00) K/uL RBC 5.69 (4.30-5.90) m/uL Hgb 17.0 (13.5-17.5) gm/dL Hct 51.1 (37.0-53.0) % MCV 90 (80-100) fL MCH 30 (26-34) pg MCHC 33 (32-36) gm/dL RDW Coeff of Darshana 12.6 (11.5-15.5) % Plt Count 186 (140-440) K/uL Neut % (Auto) 77.7 H (42.0-72.0) % Lymph % (Auto) 13.7 L (20-44) % [place] % (Auto) 7.5 (0.0-11.0) % Eos % (Auto) 0.5 (0.0-7.0) % Baso % (Auto) 0.4 (0.0-3.0) % Neut # (Auto) 8.90 H (1.7-7.0) K/uL Lymph # (Auto) 1.60 (0.90-2.90) K/uL [place] # (Auto) 0.90 (0.00-0.90) K/UL Eos # (Auto) 0.10 (0.00-0.50) K/uL Baso # (Auto) 0.00 (0.00-0.30) K/uL Abs Immat Gran (auto) 0.00 (0.00-0.30) K/uL Imm/Tot Granulo (auto) 0.2 % Sodium 139 (135-149) mmol/L Potassium 3.6 (3.6-5.1) mmol/L Chloride 105 (96-114) mmol/L Carbon Dioxide 22 (20-32) mmol/L Anion Gap 12 (7-15) mEq/L BUN 13 (7-30) mg/dL Creatinine 1.1 (0.5-1.5) mg/dL Estimated Creat Clear 82.72 Estimated GFR 78 ml/min Glucose 105 (60-115) mg/dL Calcium 9.9 (8.4-10.6) mg/dL Total Bilirubin 1.0 (0.1-1.5) mg/dL AST 20 (12-35) U/L ALT 21 (4-50) U/L Alkaline Phosphatase 78 (40-150) U/L Total Protein 7.9 (6.0-8.3) g/dL Albumin 4.7 (3.3-5.0) g/dL Urine Color Yellow (Yellow) Urine Appearance Cloudy A (Clear) Urine pH 7.5 (5.0-8.5) Ur Specific [place] 1.020 (1.000-1.030) Urine Protein 2+ A (Negative) Urine Glucose (UA) Negative (Negative) Urine Ketones 3+ A (Negative) Urine Blood 3+ A (Negative) Urine Nitrite Negative (Negative) Urine Bilirubin Negative (Negative) Urine Urobilinogen 0.2 (0.2-1.0) Ur Leukocyte Esterase Negative (Negative) Urine RBC >100 A (0-2) Urine WBC 0-2 (0-5) Ur Squamous Epith Cells None (None-Few) Urine Bacteria None (None) Imaging Data CT scan abdomen and pelvis: Attestation: I have reviewed the pertinent imaging results. Radiologist's impression: There is a 4 x 4 x 3 millimeter stone in the left mid ureter with mild left hydronephrosis. Please note that all CT scans at this facility use dose modulation, iterative reconstruction, and/or weight-based dosing when appropriate to reduce radiation dose to as low as reasonably achievable. Dictated by Khushboo Vences MD @ 01/29/2024 12:05:47 PM Discharge Plan Discharge Clinical Impression: Left nephrolithiasis Patient Disposition: Home, Self-Care Condition: Improved Instructions: Kidney Stones (ED) Additional Instructions: There is a 4 x 3 mm stone in your left mid ureter. This is consistent with wear your pain is. Her also some nonobstructing stones within your kidney but these are not causing any issues at this time. If pain is not improving in your not able to pass the stone I recommended following up with Urology or your primary care provider. Take the medications as directed. Try the Toradol 1st and a fast not help he can use the oxycodone. Prescriptions: New ketorolac 10 mg tablet 10 mg PO Q6H PRN (Reason: pain) Qty: 20 0RF Rx Instructions: maximum total duration of 5 days from all oral, intranasal, or parenteral formulations ondansetron 4 mg tablet,disintegrating 4 mg PO Q6H Qty: 20 0RF oxycodone 5 mg tablet 5 mg PO Q6H PRN (Reason: pain) Qty: 12 0RF tamsulosin 0.4 mg capsule 0.4 mg PO DAILY Qty: 10 0RF No Action multivitamin Tablet 1 tab PO QAM ascorbic acid (vitamin C) 250 mg tablet 250 mg PO DAILY cholecalciferol (vitamin D3) 50 mcg (2,000 unit) capsule 2,000 unit PO DAILY infliximab 100 mg recon soln IV Rx Instructions: Remicade (DME) Knee Scooter- Adult Misc See Rx Instructions .ROUTE .MEDSUPPLY Qty: 1 0RF Rx Instructions: As directed sildenafil (pulm.hypertension) 20 mg tablet 60 mg PO ONCE PRN (Reason: sexual activity) Qty: 30 6RF Rx Instructions: Take 1 hour before sexual intercourse oxycodone-acetaminophen [Percocet] 5-325 mg tablet 1 - 2 tab PO Q4-6H PRN (Reason: pain) Qty: 5 0RF fluticasone propionate 50 mcg/actuation spray,suspension 1 spray intranasal DAILY Rx Instructions: administer into each nostril albuterol sulfate 90 mcg/actuation HFA aerosol inhaler 2 - 4 puff inhalation Q4H PRN (Reason: shortness of breath or wheezing) Qty: 6.7 11RF omeprazole 20 mg capsule,delayed release(DR/EC) 20 mg PO DAILY Qty: 90 3RF Follow Up/Referrals: Deborah Sin MD [Primary Care Provider] - Stand Alone Forms: [facility] Info [facility]
[2024-01-29 12:02] LABS: Appearance Urine Cloudy (Clear); Bilirubin Urine Negative (Negative); Blood Urine 3+ (Negative); Color Urine Yellow (Yellow); Glucose Urine Negative (Negative); Ketones Urine 3+ (Negative); Leukocyte Esterase Urine Negative (Negative); Nitrite Urine Negative (Negative); Protein Urine 2+ (Negative); Urobilinogen Urine 0.2 (0.2-1.0); pH Urine 7.5 (5.0-8.5)
[2024-01-29] MEDS: LACTATED RINGERS 1000 ML 1,000 ML IV (12:16)
[2024-01-29] MEDS: ONDANSETRON 2 MG/ML inj 4 MG IVP (12:16)
[2024-01-29] MEDS: KETOROLAC 15 MG/ML inj IVP (12:16)
[2024-01-29 12:17] LABS: RBC Urine >100 (0-2)
[2024-01-29 12:18] LABS: WBC Urine 0-2 (0-5)
[2024-01-29 12:26] LABS: Basophils Percent Auto 0.4 % (0.0-3.0); Eosinophils Percent Auto 0.5 % (0.0-7.0); Hematocrit 51.1 % (37.0-53.0); Immature Granulocytes Pct Auto 0.2 %; Lymphocytes Percent Auto 13.7 % (20-44); Mean Corpuscular HGB Conc 33 gm/dL (32-36); Mean Corpuscular Hemoglobin 30 pg (26-34); Mean Corpuscular Volume 90 fL (80-100); Monocytes Percent Auto 7.5 % (0.0-11.0); Neutrophils Percent Auto 77.7 % (42.0-72.0); Platelet Count* 186 K/uL (140-440); RDW Coefficient of Variation % 12.6 % (11.5-15.5); Red Blood Count 5.69 m/uL (4.30-5.90); White Blood Count* 11.41 K/uL (4.50-11.00)
[2024-01-29 12:29] LABS: Slide Review Reflex No
[2024-01-29 12:34] LABS: Albumin* 4.7 g/dL (3.3-5.0); Chloride* 105 mmol/L (96-114); Sodium* 139 mmol/L (135-149)
[2024-01-29 12:35] LABS: Potassium* 3.6 mmol/L (3.6-5.1)
[2024-01-29 12:37] LABS: Alkaline Phosphatase* 78 U/L (40-150); Anion Gap 12 mEq/L (7-15); Aspartate Amino Transferase* 20 U/L (12-35); Blood Urea Nitrogen* 13 mg/dL (7-30); Carbon Dioxide* 22 mmol/L (20-32); Creatinine* 1.1 mg/dL (0.5-1.5); Est. Creatinine Clearance* 82.72; Estimated Glomerular Filt Rate 78 ml/min; Glucose* 105 mg/dL (60-115); Total Protein* 7.9 g/dL (6.0-8.3)
[2024-01-29 12:38] LABS: Alanine Aminotransferase* 21 U/L (4-50); Calcium* 9.9 mg/dL (8.4-10.6)
[2024-01-29 12:53] VITALS: BP 120/76
== END 2024-01-29 13:06 | disposition home or self-care (01) ==
PROVIDERS: Emergency Provider Student in an Organized Health Care Education/Training Program; PCP Internal Medicine
DX: N20.0 Calculus of kidney (principal)
CPT/HCPCS: 36415; 74176; 80053; 81001; 85025; 96374; 96375; 99283; J1885; J2405; J7120

== ENCOUNTER 2024-09-23 07:31 | Outpatient (CLI) | payer BC, SELFPAY ==
[2024-09-23 13:21] LABS: Basophils Absolute Auto 0.03 K/uL (0.00-0.30); Basophils Percent Auto 0.5 % (0.0-3.0); Eosinophils Absolute Auto 0.32 K/uL (0.00-0.50); Eosinophils Percent Auto 5.5 % (0.0-7.0); Hematocrit 48.8 % (37.0-53.0); Hemoglobin* 16.2 gm/dL (13.5-17.5); Mean Corpuscular HGB Conc 33 gm/dL (32-36); Mean Corpuscular Hemoglobin 31 pg (26-34); Mean Corpuscular Volume 92 fL (80-100); Monocytes Percent Auto 11.2 % (0.0-11.0); Neutrophils Absolute Auto 2.59 K/uL (1.7-7.0); Neutrophils Percent Auto 44.8 % (42.0-72.0); Platelet Count* 195 K/uL (140-440); RDW Coefficient of Variation % 12.8 % (11.5-15.5); Red Blood Count 5.28 m/uL (4.30-5.90); White Blood Count* 5.79 K/uL (4.50-11.00)
[2024-09-23 13:22] LABS: Slide Review Reflex No
[2024-09-23 13:47] LABS: Albumin* 3.8 g/dL (3.3-5.0)
[2024-09-23 13:50] LABS: Alanine Aminotransferase* 20 U/L (4-50); Alkaline Phosphatase* 59 U/L (40-150); Aspartate Amino Transferase* 17 U/L (12-35); Bilirubin Direct* 0.3 mg/dL (0.0-0.5); Bilirubin Total* 0.7 mg/dL (0.1-1.5); Total Protein* 6.3 g/dL (6.0-8.3)
[2024-09-25 08:17] LABS: QuantiFERON Mitogen minus NIL 9.77 IU/mL; QuantiFERON NIL 0.23 IU/mL; Quantiferon Plus TB1 minus NIL 0.05 IU/mL (<=0.34); Quantiferon Plus TB2 minus NIL 0.16 IU/mL (<=0.34); Quantiferon TB Gold Plus Negative (Negative)
== END 2024-09-23 07:32 | disposition home or self-care (01) ==
LOC: NPINS 07:33
PROVIDERS: PCP Internal Medicine; Visit Provider Internal Medicine Gastroenterology
DX: K50.10 Crohn's disease of large intestine without complications (principal)
CPT/HCPCS: 80076; 85025; 86480

== ENCOUNTER 2024-10-14 10:18 | Outpatient (CLI) | payer BC, SELFPAY | END 2024-10-14 10:19 | disposition home or self-care (01) | PROVIDERS: PCP Internal Medicine; Visit Provider Internal Medicine | DX: Z12.5 Encounter for screening for malignant neoplasm of prostate (principal); Z79.899 Other long term (current) drug therapy | CPT/HCPCS: 82306; G0103 ==

== ENCOUNTER 2024-11-03 07:36 | Outpatient (CLI) | payer BC, SELFPAY ==
--- NOTE | 2024-11-03 08:00 | CRLHL7_ITS ---
For Patients: As a result of the Cures Act, medical imaging exams and procedure reports are released immediately into your electronic medical record. You may view this report before your referring provider. If you have questions, please contact your health care provider. INDICATION: Follow-up mediastinal cyst. TECHNIQUE: CT chest without contrast. COMPARISON: MRI of the chest 09/30/[address] scan of the chest 07/09/2023. FINDINGS: CHEST: Lower neck and chest wall: Unremarkable thyroid. No chest wall mass or axillary lymphadenopathy. Mediastinum and loy: Stable anterior mediastinal well-defined low-density lesion measuring 3.5 x 2.0 x 2.0 cm. No mediastinal or hilar lymphadenopathy. Heart and vasculature: Unremarkable heart and thoracic aorta. Lungs: No pulmonary mass or consolidation. Minimal linear atelectasis and/or scarring in the lingula. Pleura: Normal. No pleural mass, pleural effusion or pneumothorax. Upper abdomen: Unremarkable. Bones: Unremarkable for patient???s age. No acute fracture or suspicious bone lesion. IMPRESSION: 1. Stable anterior mediastinal well-defined low-density lesion measuring 3.5 x 2.0 x 2.0 cm. 2. No acute abnormality. Please note that all CT scans at this facility use dose modulation, iterative reconstruction, and/or weight-based dosing when appropriate to reduce radiation dose to as low as reasonably achievable. Dictated by Nicholas Aceves MD @ 11/04/2024 9:31:28 AM (Electronically Signed)
== END 2024-11-03 07:37 | disposition home or self-care (01) ==
LOC: CT 07:37
PROVIDERS: PCP Internal Medicine; Visit Provider Internal Medicine
DX: J98.59 Other diseases of mediastinum, not elsewhere classified (principal); I77.810 Thoracic aortic ectasia
CPT/HCPCS: 71250